=== PATIENT | female | born 1925 | race Hispanic/Latino ===

== ENCOUNTER 2016-09-24 10:15 | Inpatient (IN) | payer MEDICARE, OTHER ==
[2016-09-24 10:22] VITALS: BMI 29.0
[2016-09-24] MEDS ORDERED: Pantoprazole 40 MG in Sodium Chloride 0.9% 100 ML IV STA (10:29)
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
[2016-09-24 11:11] LABS: BASO # 0.01 K/mm3 (0.0-2.0); BASO % 0.1 % (0.0-3.0); GRAN # 12.32 (1.4-6.5); GRAN % 88.3 % (50.0-68.0); LYMPH # 0.8 (1.2-3.4); LYMPH % 5.7 % (22.0-35.0); MEAN CELL VOLUME 89.8 fL (80.0-105.0); MEAN CORPUSCULAR HEMOGLOBIN 31.4 pg (25.0-35.0); MEAN CORPUSCULAR HGB CONC 34.9 g/dl (31.0-37.0); MEAN PLATELET VOLUME 10.3 fl (7.0-11.0); MONO # 0.8 (0.1-0.6); MONO % 5.9 % (1.0-6.0); PLATELET COUNT 336 10^3/uL (120.0-450.0); RED CELL DISTRIBUTION WIDTH 13.6 % (11.5-14.5); WHITE BLOOD COUNT 13.9 10^3/ul (4.5-11.0)
[2016-09-24 11:21] LABS: ALB/GLOB RATIO 1.1 (1.1-1.8); ALBUMIN 4.4 g/dL (3.0-4.8); CALCIUM 9.7 mg/dL (8.4-10.5); INR 1.24 (0.93-1.08); PROTHROMBIN TIME 13.4 Seconds (9.9-11.8)
[2016-09-24 11:24] LABS: PH,URINE 5.5 (4.7-8.0); URINE BILIRUBIN MODERATE (NEGATIVE); URINE BLOOD LARGE (NEGATIVE); URINE GLUCOSE (UA) NEGATIVE (NEGATIVE); URINE LEUKOCYTE ESTERASE LARGE Leu/uL (NEGATIVE); URINE NITRATE POSITIVE (NEGATIVE); URINE PROTEIN >=300 mg/dL (<30 mg/dL)
[2016-09-24 11:26] LABS: URINE APPEARANCE CLOUDY (CLEAR); URINE COLOR RED (YELLOW)
[2016-09-24 11:29] LABS: URINE BACTERIA MANY (NEG); URINE RBC TNTC /hpf (0-2); URINE WBC TNTC /hpf (0-6)
[2016-09-24] MEDS ORDERED: cefTRIAXone 1 gm 1 GM/100 ML BAG IVPB STA (11:30)
[2016-09-24 11:36] LABS: TROPONIN I 0.01 ng/mL
--- NOTE | 2016-09-24 12:02 | RAD ---
PROCEDURE: CHEST RADIOGRAPH, 1 VIEW HISTORY: Shortness of breath COMPARISON: 03/04/2016. FINDINGS: LUNGS: The lungs are clear. There is mild pulmonary venous congestion. PLEURA: No pneumothorax or pleural fluid seen. CARDIOVASCULAR: There is persistent moderate cardiomegaly and prominent central vasculature. Atherosclerotic aortic arch calcifications are present. OSSEOUS STRUCTURES: No significant abnormalities. VISUALIZED UPPER ABDOMEN: Normal. OTHER FINDINGS: None. IMPRESSION: Persistent moderate cardiomegaly and mild pulmonary venous congestion.
--- NOTE | 2016-09-24 12:29 | CT ---
PROCEDURE: CT Abdomen and Pelvis without intravenous contrast HISTORY: Abdominal pain COMPARISON: 03/04/2016 TECHNIQUE: CT scan of the abdomen and pelvis was performed without administration of intravenous contrast. Oral contrast was not administered. Coronal and sagittal reformatted images were obtained. Radiation dose: Total exam DLP = 1051.23 mGy-cm. This CT exam was performed using one or more of the following dose reduction techniques: Automated exposure control, adjustment of the mA and/or kV according to patient size, and/or use of iterative reconstruction technique. FINDINGS: LOWER THORAX: There is nodular and confluent airspace disease in the left lower lobe. The right lung base is clear. There is a large sliding hiatal hernia. LIVER: The liver is normal in size. No gross lesion or ductal dilatation. GALLBLADDER AND BILE DUCTS: The gallbladder is well distended. There are no calcified gallstones. PANCREAS: The pancreas is normal in size. No gross lesion or ductal dilatation. SPLEEN: The spleen is normal in size. ADRENALS: Both adrenal glands are normal in size without discrete nodule. KIDNEYS AND URETERS: Both kidneys are normal in size without nephrolithiasis. No hydronephrosis. No solid mass. VASCULATURE: Unremarkable. No aortic aneurysm. BOWEL: There is moderate dilatation of fluid-filled small bowel loops. There is also moderate dilatation of fluid-filled colon. The sigmoid colon is relatively normal in caliber. There are inflammatory changes in the mesentery fat anterior to the sigmoid colon. There is a zone of transition from the descending to sigmoid colon without evidence of stricture or mass. APPENDIX: The appendix is fluid-filled, distended and measures 9 mm. There are significant inflammatory changes in the right lower quadrant and small amount of fluid and inflammation surrounding the appendix. PERITONEUM: There is moderate amount of free fluid in the pelvis. No free air. LYMPH NODES: No enlarged lymph nodes. BLADDER: Decompressed. REPRODUCTIVE: The uterus is normal in size. There is a calcified fibroid in the fundus. BONES: There is diffuse bone demineralization and multilevel degenerative changes in the spine. There is mild levoscoliosis in the lumbar spine. There is an old inferior endplate fracture deformity in the T11 vertebral body. OTHER FINDINGS: None. IMPRESSION: 1. Findings are concerning for acute appendicitis. No evidence of perforation or abscess. 2. Moderate dilatation of fluid-filled small bowel loops and moderate dilatation of colon with smooth transition to the sigmoid colon could be related to ileus.
[2016-09-24] MEDS ORDERED: Piperacillin/Tazobact 3.375 gm 100 ML IVPB STA (13:06)
[2016-09-24 15:09] LABS: VENOUS BLOOD GAS BASE EXCESS -2.9 mmol/L (0.0-2.0); VENOUS BLOOD GAS PO2 58 mm/Hg (30-55); VENOUS BLOOD PH 7.27 (7.32-7.43)
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
[2016-09-24] MEDS: Lactated Ringer's 1,000 ML IV SCH ×2 (15:41→22:00)
[2016-09-24] MEDS ORDERED: Sodium Chloride 0.9% 1,000 ML IV STA (16:08)
[2016-09-24 17:08] LABS: VENOUS BLOOD GAS BASE EXCESS 1.2 mmol/L (0.0-2.0); VENOUS BLOOD GAS PO2 85 mm/Hg (30-55); VENOUS BLOOD PH 7.44 (7.32-7.43)
[2016-09-24] MEDS ORDERED: Pneumococcal 23-Valent Vaccine IM ONE (17:27)
[2016-09-24] MEDS ORDERED: Propofol 10 mg/ml Inj (20 ML) ONE (17:48)
[2016-09-24] MEDS: Ampicillin/Sulbactam 3 GM in Sodium Chloride 0.9% 100 ML IVPB SCH (17:48)
[2016-09-24] MEDS ORDERED: Midazolam 2 MG/2 ML VIAL ONE (17:49)
[2016-09-24] MEDS ORDERED: Rocuronium 10 mg/ml (5 ml) ONE (17:50)
[2016-09-24] MEDS ORDERED: Etomidate 20 mg/10ml Inj IV ONE (17:50)
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
[2016-09-24] MEDS ORDERED: Bupivacaine 0.5% Inj(30mL) ONE (18:50)
[2016-09-24] MEDS ORDERED: Oxychlorosene Topical 2 gm Packet TOP ONE (20:06)
[2016-09-24] MEDS ORDERED: Neostigmine Methylsulfate 3mg/3ml Syringe IV ONE (20:12)
[2016-09-24] MEDS ORDERED: Glycopyrrolate 0.2 mg/ml (2ml vial) ONE (20:12)
--- NOTE | 2016-09-24 21:04 | PCM.SURG1 ---
Surgeon's Initial Post Op Note - Surgeon's Notes Surgeon: Dr Baez Hand Singer: Dr Chau PGY3, Dr Levy PGY1 Type of Anesthesia: General Endo Anesthesia Administered By: Dr Bravo Pre-Operative Diagnosis: appendicitis Operative Findings: perforated appendicitis Post-Operative Diagnosis: as above Operation Performed: diagnostic laparoscopy. exploratory laparotomy. appendectomy. drainage of intra-abdominal abscess Specimen/Specimens Removed: appendix. peritoneal fluid culture Estimated Blood Loss: EBL {In ML}: 25 Blood Products Given: N/A Drains Used: Chilango Post-Op Condition: Good Date of Surgery/Procedure: 09/24/16 Time of Surgery/Procedure: 21:04
[2016-09-24] MEDS: Morphine 4 mg/ml ISec IVP PRN (21:16)
--- NOTE | 2016-09-25 00:49 | HP ---
PRIMARY CARE DOCTOR: Jaky Moa MD CHIEF COMPLAINT AND HISTORY OF PRESENT ILLNESS: This is an 89-year-old female who is coming into the hospital with complaints of abdominal pain, nausea, and vomiting. She has been having intermittent constipation as well. Yesterday, she started developing shortness of breath. She had called her primary care doctor, Dr. Mao and was advised to come into the emergency room for further evaluation. She says that she has been having abdominal discomfort, it is periumbilical. She has no diarrhea, no vomiting, she has no headaches, she has no fevers or chills. She has no back pain. She denies any dysuria, no dizziness. She has not been able to tolerate p.o. REVIEW OF SYSTEMS: All the review of systems are within normal limits except was mentioned. PAST MEDICAL HISTORY: Dyslipidemia, UTI, back pain secondary to lumbar disk disease. ALLERGIES: PINEAPPLE, SHE GETS ANAPHYLAXIS. HOME MEDICATIONS: No known home medications. SOCIAL HISTORY: She is a former smoker, the patient stopped smoking about 5 years ago. She drinks socially. She denies any drug use. FAMILY HISTORY: Noncontributory. PHYSICAL EXAMINATION VITAL SIGNS: Temperature 101.2, pulse of 101, blood pressure is 111/68, respirations 18 and O2 saturation 97%. Initial blood pressure was 99/60. Height 5 feet 6 inches, weight is 180 pounds, BMI 29.1. GENERAL: The patient lying in bed, uncomfortable, and in no acute distress. HEENT: Atraumatic and normocephalic. Anicteric sclerae. Moist mucosa. [place] conjunctivae. No oral lesions. NECK: No JVD, anterior and posterior adenopathy, thyromegaly, or bruits. CARDIOVASCULAR: S1 and S2 regular. No murmur, rubs, or gallop. LUNGS: Clear to auscultation bilaterally. No wheezes, rales, or rhonchi. ABDOMEN: Bowel sounds are positive. Soft. There is no rebound. There is mild right lower quadrant tenderness. EXTREMITIES: No cyanosis, clubbing, or edema. NEUROLOGIC: No facial asymmetry. Tongue is midline. No vulva deviation. Power is 5/5 upper extremity and lower extremity. Sensation intact in upper extremity and lower extremity. PSYCHIATRIC: She is awake, alert and oriented x3. No anxiety or depression. She has normal affect. GENITOURINARY: No CVA tenderness. VASCULAR: 2+ pulses in the carotid pulses and pedal pulses. SKIN: No erythema or nodules SPINE: Shows normal curvature. EXTREMITIES: No Cyanosis and clubbing, no edema. LABORATORY DATA: White count is 13.9 and hemoglobin 16. INR is 1.2. The patient's chemistry shows a sodium 137, potassium 4.8, creatinine 1.1 and albumin 4.4. Urine shows that nitrites are positive, blood is large, ketones are 15 esterase is large. The last echo done in February 2016 shows the left ventricle is normal in size. Chest x-ray shows persistent moderate cardiomegaly and mild pulmonary venous congestion. CT of the abdomen and pelvis shows an acute appendicitis. There is moderate dilation of fluid filled small bowel loops. EKG shows atrial fibrillation [address] changes, poor EKG. ASSESSMENT: 1. Appendicitis. 2. Sepsis. 3. Atrial fibrillation, new onset. 4. Dilation of the colon, possible ileus. 5. Dyslipidemia. 6. Urinary tract infection. 7. Chronic back pain. PLAN: The patient is going to be admitted to the hospital. The patient is going to be on IV fluids. She has been given morphine for pain. The pain is better controlled. I spoke to the ER doctor and he said the patient's abdominal pain, nausea were significantly worse when she first came into the hospital, she is on Zofran as needed. She is n.p.o. I did speak to Dr. Baez and Dr. Harrell regarding the case, the patient is going to be sent emergently to the OR for appendectomy. She is better than she came into the hospital and this may be a window to prevent rupture of her appendix. Overall prognosis is guarded. She may need ICU stay after her surgery. She is at risk of having complications given that she is septic and in AFib. Given acute appendicitis and is emergent we will clear her and she is hemodynamically stable to undergo the procedure. I did speak to the patient's daughter earlier and also I spoke to Hesham at the bedside, the patient's son. I also spoke with Dr. Mao to give him update on patient's diagnosis and plan of care. Abhishek Mac MD [facility] # [id number]
[2016-09-25] MEDS: Ampicillin/Sulbactam 3 GM in Sodium Chloride 0.9% 100 ML IVPB SCH ×4 (05:25→18:43)
[2016-09-25 06:00] LABS: HEMOGLOBIN 13.1 gm/dL (12.0-16.0); MEAN CELL VOLUME 91.5 fL (80.0-105.0); MEAN CORPUSCULAR HEMOGLOBIN 30.8 pg (25.0-35.0); MEAN CORPUSCULAR HGB CONC 33.6 g/dl (31.0-37.0); MEAN PLATELET VOLUME 10.3 fl (7.0-11.0); RBC 4.26 10^6/uL (3.5-6.1); WHITE BLOOD COUNT 8.5 10^3/ul (4.5-11.0)
[2016-09-25 06:15] LABS: ALT/SGPT 22 U/L (7-56); AST/SGOT 19 U/L (15-39); BLOOD UREA NITROGEN 22 mg/dL (7-21); GFR AFRICAN-AMERICAN > 60; GFR NON-AFRICAN AMERICAN > 60; MAGNESIUM 1.9 mg/dL (1.7-2.2)
[2016-09-25 06:22] LABS: TROPONIN I 0.05 ng/mL
[2016-09-25] MEDS: Lactated Ringer's 1,000 ML IV SCH (07:15)
--- NOTE | 2016-09-25 08:12 | CP.PCM.PN ---
Subjective - Date & Time of Evaluation Date of Evaluation: 09/25/16 Time of Evaluation: 07:40 - Subjective Subjective: General Surgery- Dr. Baez Pt S&E at bedside this AM. No acute events overnight. pt complaining of appropriate tenderness around incision. Tolerating clears. Denies Flatus or BM. Denies N/V CP/SOB F/C Vision changes. Currently AAOx3. Chilango 120cc serosang overnight. Dressing C/D/I Objective - Vital Signs/Intake and Output Vital Signs (last 24 hours): Temp Pulse Resp BP Pulse Ox 99.1 F 105 H 26 H 138/69 95 09/25/16 07:40 09/25/16 07:40 09/25/16 07:40 09/25/16 07:33 09/25/16 07:40 Intake and Output: 09/25/16 09/25/16 06:59 18:59 Intake Total 1000 Output Total 100 Balance 900 - Medications Medications: Current Medications Lactated Ringer's (Lactated Ringer's) 1,000 mls @ 100 mls/hr IV .Q10H ALEJANDRA Last Admin: 09/24/16 22:00 Dose: 100 mls/hr Ampicillin Sodium/Sulbactam (Sodium 3 gm/ Sodium Chloride) 100 mls @ 200 mls/ hr IVPB Q6 ALEJANDRA PRN Reason: Protocol Last Admin: 09/25/16 05:25 Dose: 200 mls/hr Morphine Sulfate (Morphine) 4 mg IVP Q4H PRN PRN Reason: Pain, moderate (4-7) Last Admin: 09/24/16 21:16 Dose: 4 mg Ondansetron HCl (Zofran Inj) 4 mg IVP Q4H PRN PRN Reason: Nausea/Vomiting - Labs Labs: 09/25/16 05:30 09/25/16 05:30 PT 13.4 Seconds (9.9-11.8) H 09/24/16 10:50 INR 1.24 (0.93-1.08) H 09/24/16 10:50 APTT 27.0 Seconds (23.7-30.8) 09/24/16 10:50 - Constitutional Appears: Well, Non-toxic, No Acute Distress - Head Exam Head Exam: ATRAUMATIC - Eye Exam Eye Exam: EOMI - ENT Exam ENT Exam: Mucous Membranes Moist - Respiratory Exam Respiratory Exam: Wheezes, NORMAL BREATHING PATTERN. absent: Accessory Muscle Use, Chest Wall Tenderness - Cardiovascular Exam Cardiovascular Exam: Tachycardia, +S1, +S2 - GI/Abdominal Exam GI & Abdominal Exam: Distended, Soft. absent: Firm, Hernia Additional comments: appropriately tender around incision. Dressing C/D/I - Extremities Exam Extremities Exam: absent: Pedal Edema - Neurological Exam Neurological Exam: Awake, Oriented x3 - Skin Skin Exam: Normal Color, Warm Assessment and Plan - Assessment and Plan (Free Text) Assessment: 89F s/p exploratory laparotomy, appendectomy POD1 Plan: - monitor labs - start clear liquid diet, advance as tolerated - pain control - GI/DVT ppx - IVF - monitor drain output will discuss with Dr. Nestor Pak PGY1
[2016-09-25] MEDS ORDERED: Albuterol-Ipratrop 3 mg / 0.5 (3 ml) UD ONE (09:00)
[2016-09-25] MEDS ORDERED: Albuterol-Ipratrop 3 mg / 0.5 (3 ml) UD IH STA ×2 (09:13→09:15)
[2016-09-25] MEDS: Enoxaparin 40 mg Syringe SC SCH (10:09)
[2016-09-25] MEDS: Morphine 4 mg/ml ISec IVP PRN ×2 (10:09→14:24)
--- NOTE | 2016-09-25 10:22 | CARD ---
APPROVED REPORT EKG Measurement Heart [id number] <Conclusion> Atrial fibrillation PRWP Possible IMI, age unknown NSSTW changes
[2016-09-25] MEDS ORDERED: Albuterol-Ipratrop 3 mg / 0.5 (3 ml) UD IH PRN (12:08)
[2016-09-25] MEDS: MethylPREDNISolone 40 mg Vial IVP SCH ×2 (12:33→22:02)
--- NOTE | 2016-09-25 12:41 | CP.CCUPN ---
CCU Subjective - Physician Review Events Since Last Encounter (Free Text): 09/25/16 12:38 Overnight returned from surgery (open) Appendix removal. Pain controlled but SOb and wheezing started. This a.m received Nebs and suctioning. Solumedrol to be added. CCU Objective - Vital Signs / Intake & Output Intake and Output (Last 8hrs): Intake & Output 09/24/16 09/25/16 09/25/16 22:59 06:59 14:59 Intake Total 1200 1000 Output Total 600 100 Balance 600 900 Weight 180 lb Intake: IV 1200 800 Right Hand 1200 800 Oral 0 Other 200 Output: Drainage 100 Left Abdomen 100 Urine 600 Urine, Voided 600 Other: Voiding Method Toilet Diaper # Voids Urine, Voided 3 # Bowel Movements 0 0 - Physical Exam Head: Positive for: Atraumatic, Normocephalic Pupils: Positive for: PERRL Extroacular Muscles: Positive for: EOMI Conjunctiva: Positive for: Normal Mouth: Positive for: Moist Mucous Membranes Pharnyx: Negative for: ERYTHEMA, EXUDATE, TONSILS ENLARGED Neck: Positive for: Normal Range of Motion. Negative for: MIDLINE TENDERNESS, Paraspinal Tenderness Respiratory/Chest: Positive for: Rales (Bibasilar mild rales) Cardiovascular: Positive for: Normal S1, S2, Irregular Rhythm, Tachycardic. Negative for: Murmurs Abdomen: Positive for: Tenderness (Mild generalized tenderness but no guarding and no rebound), Normal Bowel Sounds. Negative for: Distention, Peritoneal Signs, Rebound, Guarding, Scars Rectal: Positive for: Normal Rectal Tone, Other (No stool and guaiac negative). Negative for: Occult Blood, Rectal Tenderness, Gross Blood, Melena, Hemorrhoids, Fissures, Nodule/Mass/Lesions Upper Extremity: Positive for: Normal Inspection. Negative for: Cyanosis, Edema Lower Extremity: Positive for: Normal Inspection. Negative for: Edema Neurological: Positive for: GCS=15, CN II-XII Intact, Speech Normal, Motor Func Grossly Intact Skin: Positive for: Warm, Dry, Normal Color. Negative for: Rashes Psychiatric: Positive for: Alert, Oriented x 3, Normal Insight, Normal Concentration - Medications Active Medications: Active Medications Generic Name Dose Route Start Last Admin Trade Name Freq PRN Reason Stop Dose Admin Albuterol/Ipratropium 3 ml 09/25/16 14:00 Duoneb 3 Mg/0.5 Mg (3 Ml) Ud IH [id number] ALEJANDRA Albuterol/Ipratropium 3 ml 09/25/16 12:08 Duoneb 3 Mg/0.5 Mg (3 Ml) Ud IH Q2H PRN Shortness of Breath Enoxaparin Sodium 40 mg 09/25/16 10:00 09/25/16 10:09 Lovenox SC 40 mg DAILY ALEJANDRA Administration Protocol Lactated Ringer's 1,000 mls @ 100 mls/hr 09/24/16 15:25 09/25/16 07:15 Lactated Ringer's IV 100 mls/hr .Q10H ALEJANDRA Administration Ampicillin Sodium/Sulbactam 100 mls @ 200 mls/hr 09/24/16 18:00 09/25/16 11: 41 Sodium 3 gm/ Sodium Chloride IVPB 200 mls/hr Q6 ALEJANDRA Administration Protocol Metronidazole 500 mg in 100 mls @ 100 mls/hr 09/25/16 14:00 Flagyl IVPB Q8 ALEJANDRA Protocol Methylprednisolone 40 mg 09/25/16 12:15 Solu-Medrol IVP Q12 [facility] Morphine Sulfate 4 mg 09/24/16 15:25 09/25/16 10:09 Morphine IVP 4 mg Q4H PRN Administration Pain, moderate (4-7) Ondansetron HCl 4 mg 09/24/16 15:25 09/25/16 10:10 Zofran Inj IVP 4 mg Q4H PRN Administration Nausea/Vomiting - Patient Studies Lab Studies: Lab Studies 09/25/16 09/25/16 09/25/16 Range/Units 05:30 05:30 05:30 WBC 8.5 D (4.5-11.0) 10^3/ul RBC 4.26 (3.5-6.1) 10^6/uL Hgb 13.1 (12.0-16.0) gm/dL Hct 39.0 (36.0-48.0) % MCV 91.5 (80.0-105.0) fL MCH 30.8 (25.0-35.0) pg MCHC 33.6 (31.0-37.0) g/dl RDW 14.0 (11.5-14.5) % Plt Count 251 (120.0-450.0) 10^3/uL MPV 10.3 (7.0-11.0) fl pO2 (30-55) mm/Hg VBG pH (7.32-7.43) VBG pCO2 (40-60) VBG HCO3 (21-28) mmol/l VBG Total CO2 (22-28) mmol.L VBG O2 Sat (Calc) (40-65) % VBG Base Excess (0.0-2.0) mmol/L VBG Potassium (3.6-5.2) mmol/L Sodium 138 (132-148) mmol/L Chloride 104 (98-107) mmol/L Glucose (65-105) mg/dl Lactate (0.7-2.1) mmol/L FiO2 % Potassium 4.4 (3.6-5.0) mmol/L Carbon Dioxide 25 (21-33) mmol/L Anion Gap 13 (10-20) BUN 22 H (7-21) mg/dL Creatinine 0.8 (0.5-1.4) mg/dL Est GFR ( Amer) > 60 Est GFR (Non-Af Amer) > 60 Random Glucose 118 H (70-110) mg/dL Calcium 8.0 L (8.4-10.5) mg/dL Phosphorus 3.8 (2.5-4.5) mg/dL Magnesium 1.9 (1.7-2.2) mg/dL Total Bilirubin 0.9 (0.2-1.3) mg/dL AST 19 (15-39) U/L ALT 22 (7-56) U/L Alkaline Phosphatase 33 L (38-133) U/L Troponin I 0.05 D ng/mL Total Protein 6.1 (5.8-8.3) g/dL Albumin 3.0 (3.0-4.8) g/dL Globulin 3.1 gm/dL Albumin/Globulin Ratio 1.0 L (1.1-1.8) TSH 3rd Generation 1.15 (0.46-4.68) mIU/mL Venous Blood Potassium (3.6-5.2) mmol/L Blood Type Blood Type Confirm Antibody Screen BBK History Checked 09/24/16 09/24/16 09/24/16 Range/Units 17:50 16:55 16:50 WBC (4.5-11.0) 10^3/ul RBC (3.5-6.1) 10^6/uL Hgb (12.0-16.0) gm/dL Hct (36.0-48.0) % MCV (80.0-105.0) fL MCH (25.0-35.0) pg MCHC (31.0-37.0) g/dl RDW (11.5-14.5) % Plt Count (120.0-450.0) 10^3/uL MPV (7.0-11.0) fl pO2 85 H (30-55) mm/Hg VBG pH 7.44 H (7.32-7.43) VBG pCO2 37.0 L (40-60) VBG HCO3 25.1 (21-28) mmol/l VBG Total CO2 26.2 (22-28) mmol.L VBG O2 Sat (Calc) 98.6 H (40-65) % VBG Base Excess 1.2 (0.0-2.0) mmol/L VBG Potassium 4.5 (3.6-5.2) mmol/L Sodium 133.0 (132-148) mmol/L Chloride 102.0 (98-107) mmol/L Glucose 162 H (65-105) mg/dl Lactate 1.8 (0.7-2.1) mmol/L FiO2 21.0 % Potassium (3.6-5.0) mmol/L Carbon Dioxide (21-33) mmol/L Anion Gap (10-20) BUN (7-21) mg/dL Creatinine (0.5-1.4) mg/dL Est GFR ( Amer) Est GFR (Non-Af Amer) Random Glucose (70-110) mg/dL Calcium (8.4-10.5) mg/dL Phosphorus (2.5-4.5) mg/dL Magnesium (1.7-2.2) mg/dL Total Bilirubin (0.2-1.3) mg/dL AST (15-39) U/L ALT (7-56) U/L Alkaline Phosphatase (38-133) U/L Troponin I ng/mL Total Protein (5.8-8.3) g/dL Albumin (3.0-4.8) g/dL Globulin gm/dL Albumin/Globulin Ratio (1.1-1.8) TSH 3rd Generation (0.46-4.68) mIU/mL Venous Blood Potassium 4.5 (3.6-5.2) mmol/L Blood Type A POSITIVE Blood Type Confirm A POSITIVE Antibody Screen Negative BBK History Checked No verified bt 09/24/16 Range/Units 14:30 WBC (4.5-11.0) 10^3/ul RBC (3.5-6.1) 10^6/uL Hgb (12.0-16.0) gm/dL Hct (36.0-48.0) % MCV (80.0-105.0) fL MCH (25.0-35.0) pg MCHC (31.0-37.0) g/dl RDW (11.5-14.5) % Plt Count (120.0-450.0) 10^3/uL MPV (7.0-11.0) fl pO2 58 H (30-55) mm/Hg VBG pH 7.27 L (7.32-7.43) VBG pCO2 54.0 (40-60) VBG HCO3 24.8 (21-28) mmol/l VBG Total CO2 26.5 (22-28) mmol.L VBG O2 Sat (Calc) 90.9 H (40-65) % VBG Base Excess -2.9 L (0.0-2.0) mmol/L VBG Potassium 5.4 H (3.6-5.2) mmol/L Sodium 147.0 (132-148) mmol/L Chloride 89.0 L (98-107) mmol/L Glucose 154 H (65-105) mg/dl Lactate 3.2 H (0.7-2.1) mmol/L FiO2 21.0 % Potassium (3.6-5.0) mmol/L Carbon Dioxide (21-33) mmol/L Anion Gap (10-20) BUN (7-21) mg/dL Creatinine (0.5-1.4) mg/dL Est GFR ( Amer) Est GFR (Non-Af Amer) Random Glucose (70-110) mg/dL Calcium (8.4-10.5) mg/dL Phosphorus (2.5-4.5) mg/dL Magnesium (1.7-2.2) mg/dL Total Bilirubin (0.2-1.3) mg/dL AST (15-39) U/L ALT (7-56) U/L Alkaline Phosphatase (38-133) U/L Troponin I ng/mL Total Protein (5.8-8.3) g/dL Albumin (3.0-4.8) g/dL Globulin gm/dL Albumin/Globulin Ratio (1.1-1.8) TSH 3rd Generation (0.46-4.68) mIU/mL Venous Blood Potassium 5.4 H (3.6-5.2) mmol/L Blood Type Blood Type Confirm Antibody Screen BBK History Checked Laboratory Results - last 24 hr 09/24/16 09/24/16 09/24/16 14:30 16:50 16:55 WBC RBC Hgb Hct MCV MCH MCHC RDW Plt Count MPV pO2 58 H 85 H VBG pH 7.27 L 7.44 H VBG pCO2 54.0 37.0 L VBG HCO3 24.8 25.1 VBG Total CO2 26.5 26.2 VBG O2 Sat (Calc) 90.9 H 98.6 H VBG Base Excess -2.9 L 1.2 VBG Potassium 5.4 H 4.5 Sodium 147.0 133.0 Chloride 89.0 L 102.0 Glucose 154 H 162 H Lactate 3.2 H 1.8 FiO2 21.0 21.0 Potassium Carbon Dioxide Anion Gap BUN Creatinine Est GFR ( Amer) Est GFR (Non-Af Amer) Random Glucose Calcium Phosphorus Magnesium Total Bilirubin AST ALT Alkaline Phosphatase Troponin I Total Protein Albumin Globulin Albumin/Globulin Ratio TSH 3rd Generation Venous Blood Potassium 5.4 H 4.5 Blood Type A POSITIVE Blood Type Confirm Antibody Screen Negative BBK History Checked No verified bt 09/24/16 09/25/16 09/25/16 17:50 05:30 05:30 WBC 8.5 D RBC 4.26 Hgb 13.1 Hct 39.0 MCV 91.5 MCH 30.8 MCHC 33.6 RDW 14.0 Plt Count 251 MPV 10.3 pO2 VBG pH VBG pCO2 VBG HCO3 VBG Total CO2 VBG O2 Sat (Calc) VBG Base Excess VBG Potassium Sodium 138 Chloride 104 Glucose Lactate FiO2 Potassium 4.4 Carbon Dioxide 25 Anion Gap 13 BUN 22 H Creatinine 0.8 Est GFR ( Amer) > 60 Est GFR (Non-Af Amer) > 60 Random Glucose 118 H Calcium 8.0 L Phosphorus 3.8 Magnesium 1.9 Total Bilirubin 0.9 AST 19 ALT 22 Alkaline Phosphatase 33 L Troponin I 0.05 D Total Protein 6.1 Albumin 3.0 Globulin 3.1 Albumin/Globulin Ratio 1.0 L TSH 3rd Generation Venous Blood Potassium Blood Type Blood Type Confirm A POSITIVE Antibody Screen BBK History Checked 09/25/16 05:30 WBC RBC Hgb Hct MCV MCH MCHC RDW Plt Count MPV pO2 VBG pH VBG pCO2 VBG HCO3 VBG Total CO2 VBG O2 Sat (Calc) VBG Base Excess VBG Potassium Sodium Chloride Glucose Lactate FiO2 Potassium Carbon Dioxide Anion Gap BUN Creatinine Est GFR ( Amer) Est GFR (Non-Af Amer) Random Glucose Calcium Phosphorus Magnesium Total Bilirubin AST ALT Alkaline Phosphatase Troponin I Total Protein Albumin Globulin Albumin/Globulin Ratio TSH 3rd Generation 1.15 Venous Blood Potassium Blood Type Blood Type Confirm Antibody Screen BBK History Checked EKG/Cardiology Studies: Cardiology / EKG Studies 09/25/16 09:21 ELECTROCARDIOGRAM Routine Comment: Reason For Exam: post op Critical Care Progress Note - Nutrition Nutrition: Nutrition Category Date Time Status Liquid Diet [DIET] Diets 09/24/16 Dinner Ordered Assessment/Plan - Assessment and Plan (Free Text) Assessment: 89 y/o F s/p Appendix removal (open) with midline scar and ADWOA drain in place. On empiric abx for Intrabdominal source and UTI. CX pending On IV fluids and NPO currently. COPD On Nebulizers q4-6 hrs , suctions and Solumedrol to be added. DVT P PPi cc time 45 min
[2016-09-25] MEDS: Albuterol-Ipratrop 3 mg / 0.5 (3 ml) UD IH SCH ×2 (13:07→19:55)
[2016-09-25] MEDS: metroNIDAZOLE IV 500 mg/100 ml 500 MG/100 ML BAG IVPB SCH ×2 (14:22→22:00)
[2016-09-25] MEDS ORDERED: Sodium Chloride 0.9% 1,000 ML IV STA (15:21)
--- NOTE | 2016-09-25 15:52 | CON ---
DATE: 09/25/2016 INDICATIONS: Postop emergency appendectomy. HISTORY OF PRESENT ILLNESS: This is an 89-year-old woman admitted yesterday through the emergency room when she presented with several days of the abdominal pain and was found to have appendicitis as well as a urinary tract infection. She went to the OR yesterday and had an appendectomy and drainage of an abscess. She is currently in the intensive care unit on IV antibiotics. She is comfortable except for residual postoperative abdominal pain, which is much Improved as compared to yesterday. There is no chest pain, shortness of breath, orthopnea, PND, syncope, presyncope, lightheadedness, dizziness, vertigo, palpitations, edema, cough, sputum production or hemoptysis. PAST MEDICAL HISTORY: Notable for hyperlipidemia, chronic back pain, diverticulitis. She is a former smoker. On admission, she was found to have atrial fibrillation, but this has not been documented in the ICU. There is no history of rheumatic fever, myocardial infarction, congestive hear failure, stroke, TIA, or gout. There is no history of diabetes. An echo cardiogram in 02/2016, reveal normal LV function, small pericardial effusion was noted at that time. There were no medications at the time of admission. CURRENT MEDICATION: Include albuterol, Lovenox, morphine, Unasyn and Zofran. ALLERGIES: SHE NOTES AN ALLERGY TO [place], BUT NO MEDICATION ALLERGIES ARE RECORDED. SOCIAL HISTORY: She is a former smoker. She does not drink alcohol. She lives at home. FAMILY HISTORY: Noncontributory. REVIEW OF SYSTEMS: A 10-point review of systems is otherwise unremarkable except as noted above. PHYSICAL EXAMINATION GENERAL: She is a well-developed elderly woman, lying in bed in the intensive care unit, in no acute distress. VITAL SIGNS: Notable for sinus rhythm to sinus tachycardia, currently 105 beats per minute; temperature 99.1; blood pressure 138/69; respirations 19 to 26 and O2 sat 95% to 100% on nasal cannula. HEENT: Reveals no neck vein distention, thyromegaly, or carotid bruits. Mucous membranes moist. Conjunctivae are pink. NECK: Supple. LUNGS: Lungs warren clear HEART: Examination of the heart revealed normal first and second heart sounds. There is a soft systolic murmur along the left sternal border. The PMI is not displaced. ABDOMEN: Tender. EXTREMITIES: Revealed no cyanosis, clubbing, or edema. NEUROLOGIC: She is awake, alert and oriented. PSYCHIATRIC: Normal as to mood and affect. SKIN: Warm and dry. No rash or cellulitis. LABORATORY AND IMAGING DATA: Portable chest x-ray reveals moderate cardiomegaly, mild pulmonary venous congestion. EKG demonstrated atrial fibrillation, poor R wave progression, nonspecific ST wave changes. CT scan of the abdomen and pelvis is noted, it reveals acute appendicitis, no evidence of perforation or abscess, etc. White count initially 13,900, today 8500. Hemoglobin, hematocrit and platelet count are unremarkable. PT 13.4, INR 1.24, PTT 27. Blood gases are noted. Electrolytes; BUN, creatinine, blood sugar unremarkable. Magnesium 1.9. LFTs are unremarkable. Troponin negative x2. BNP 2500. TSH is normal. IMPRESSION: Staci Rasmussen is an 89-year-old woman admitted with abdominal pain, found to have acute appendicitis as well as a urinary tract infection. She was treated with antibiotics and taken to the OR. The appendix was removed and an abscess drained. This morning she is stable in the intensive care unit. She is in sinus rhythm, the sinus tachycardia. Troponins are negative. At this time, I agree with current plans. I will review her prior echocardiogram. When she is out of the intensive care unit, we will repeat the echocardiogram to follow up on the small pericardial effusion documented in February. I would monitor I's and O's carefully. She is getting antibiotics. She has been cultured. Surgical team is following. I have discussed the case with Dr. Meade. I will report her EKG this morning. I will follow along with you and make additional recommendations based on her clinical course. Mario Harrell MD [facility]
[2016-09-26] MEDS: Lactated Ringer's 1,000 ML IV SCH ×3 (04:01→22:31)
[2016-09-26] MEDS: Ampicillin/Sulbactam 3 GM in Sodium Chloride 0.9% 100 ML IVPB SCH ×5 (05:45→23:02)
[2016-09-26 05:46] LABS: BASO # 0.01 K/mm3 (0.0-2.0); BASO % 0.1 % (0.0-3.0); GRAN # 7.92 (1.4-6.5); GRAN % 92.8 % (50.0-68.0); HEMOGLOBIN 11.6 gm/dL (12.0-16.0); LYMPH # 0.4 (1.2-3.4); LYMPH % 4.2 % (22.0-35.0); MEAN CELL VOLUME 92.4 fL (80.0-105.0); MEAN CORPUSCULAR HEMOGLOBIN 30.5 pg (25.0-35.0); MEAN PLATELET VOLUME 10.1 fl (7.0-11.0); MONO # 0.3 (0.1-0.6); MONO % 2.9 % (1.0-6.0); PLATELET COUNT 232 10^3/uL (120.0-450.0); RED CELL DISTRIBUTION WIDTH 13.7 % (11.5-14.5); WHITE BLOOD COUNT 8.5 10^3/ul (4.5-11.0)
[2016-09-26 05:53] LABS: ALB/GLOB RATIO 0.9 (1.1-1.8); ALT/SGPT 27 U/L (7-56); AST/SGOT 18 U/L (15-39); BLOOD UREA NITROGEN 23 mg/dL (7-21); CALCIUM 7.9 mg/dL (8.4-10.5); GFR AFRICAN-AMERICAN > 60; GFR NON-AFRICAN AMERICAN 59
[2016-09-26] MEDS: metroNIDAZOLE IV 500 mg/100 ml 500 MG/100 ML BAG IVPB SCH ×3 (06:41→22:47)
[2016-09-26] MEDS: Albuterol-Ipratrop 3 mg / 0.5 (3 ml) UD IH SCH ×4 (07:17→22:30)
--- NOTE | 2016-09-26 07:47 | CP.PCM.PN ---
Subjective - Date & Time of Evaluation Date of Evaluation: 09/26/16 Time of Evaluation: 07:00 - Subjective Subjective: Stable in ICU. Supine in recliner chair. She feels better with less abd. pain. SOB yesterday, better today after resp tx. No CP. Taking clear ligs. V/S noted. RSR PE: Lungs: rhonchi Cor.: S1S2 Abd.: bandaged Ext.: no edema Neuro.: alert I/O: 2080/570 Labs noted: H/H 11.6/35.1. BC x2 NG at 24 hrs. Urine C+S: + GNR CXR not read yet: No CHF by my reading ECG 09/25/16: AJR , PRWP, IMI, old, NSSTW changes Objective - Vital Signs/Intake and Output Vital Signs (last 24 hours): Temp Pulse Resp BP Pulse Ox 98.4 F 82 20 153/63 H 98 09/26/16 06:50 09/26/16 06:50 09/26/16 06:50 09/26/16 06:47 09/26/16 06:50 Intake and Output: 09/26/16 09/26/16 06:59 18:59 Intake Total 1220 Output Total 350 Balance 870 - Medications Medications: Current Medications Acetaminophen (Tylenol 325mg Tab) 650 mg PO Q6H PRN PRN Reason: Fever >100.4 F Last Admin: 09/25/16 15:38 Dose: 650 mg Albuterol/Ipratropium (Duoneb 3 Mg/0.5 Mg (3 Ml) Ud) 3 ml IH [id number] [facility] Last Admin: 09/26/16 07:17 Dose: 3 ml Albuterol/Ipratropium (Duoneb 3 Mg/0.5 Mg (3 Ml) Ud) 3 ml IH Q2H PRN PRN Reason: Shortness of Breath Last Admin: 09/25/16 18:11 Dose: 3 ml Enoxaparin Sodium (Lovenox) 40 mg SC DAILY [facility] PRN Reason: Protocol Last Admin: 09/25/16 10:09 Dose: 40 mg Lactated Ringer's (Lactated Ringer's) 1,000 mls @ 100 mls/hr IV .Q10H [facility] Last Admin: 09/26/16 04:01 Dose: 100 mls/hr Ampicillin Sodium/Sulbactam (Sodium 3 gm/ Sodium Chloride) 100 mls @ 200 mls/ hr IVPB Q6 ALEJANDRA PRN Reason: Protocol Last Admin: 09/26/16 05:45 Dose: 200 mls/hr Metronidazole (Flagyl) 500 mg in 100 mls @ 100 mls/hr IVPB Q8 ALEJANDRA PRN Reason: Protocol Last Admin: 09/26/16 06:41 Dose: 100 mls/hr Methylprednisolone (Solu-Medrol) 40 mg IVP Q12 ALEJANDRA Last Admin: 09/25/16 22:02 Dose: 40 mg Morphine Sulfate (Morphine) 4 mg IVP Q4H PRN PRN Reason: Pain, moderate (4-7) Last Admin: 09/25/16 14:24 Dose: 4 mg Ondansetron HCl (Zofran Inj) 4 mg IVP Q4H PRN PRN Reason: Nausea/Vomiting Last Admin: 09/25/16 14:25 Dose: 4 mg - Labs Labs: 09/26/16 05:15 09/26/16 05:15 PT 13.4 Seconds (9.9-11.8) H 09/24/16 10:50 INR 1.24 (0.93-1.08) H 09/24/16 10:50 APTT 27.0 Seconds (23.7-30.8) 09/24/16 10:50 Assessment and Plan - Assessment and Plan (Free Text) Assessment: Abd, pain, nausea, vomiting, acute AP and UTI S/P appendectomy and abscess drainage UTI PAF HLD COPD/Former Smoker Diverticulitis H/O small pericardial effusion on echo 03/09 Plan: AB As per surgical team metoprolol 25 BID trial tel bed monitor I/O, labs, tel, sats., etc. F/U echo when out of unit.
--- NOTE | 2016-09-26 09:30 | CARD ---
APPROVED REPORT EKG Measurement Heart [id number] <Conclusion> Accelerated Junctional rhythm vs RSR with markedly prolonged DC RSR' or QR pattern in V1 suggests right ventricular conduction delay PRWP Inferior infarct, age undetermined Anterior infarct, age undetermined NSSTW changes
[2016-09-26] MEDS: MethylPREDNISolone 40 mg Vial IVP SCH ×2 (09:32→22:48)
[2016-09-26] MEDS: Enoxaparin 40 mg Syringe SC SCH (09:32)
[2016-09-26] MEDS ORDERED: Benzocaine/Menthol (Cepacol) Lozenge MT PRN (09:59)
--- NOTE | 2016-09-26 11:23 | CP.PCM.PN ---
Subjective - Date & Time of Evaluation Date of Evaluation: 09/26/16 Time of Evaluation: 07:40 - Subjective Subjective: General surgery progress note for Dr. Yimi Meade, PGY-1 Pt S & E at bedside. Pt reports pain well controlled overnight, breating improved. Denies N/V/F/C, BM, flatus. Is OOBTC. Tolerating diet. [place]ilango with 270cc serous fluid/24H. Transferred from ICU care. Objective - Vital Signs/Intake and Output Vital Signs (last 24 hours): Temp Pulse Resp BP Pulse Ox 98.4 F 83 20 144/51 L 98 09/26/16 06:50 09/26/16 09:33 09/26/16 06:50 09/26/16 09:33 09/26/16 06:50 Intake and Output: 09/26/16 09/26/16 06:59 18:59 Intake Total 1220 Output Total 350 10 Balance 870 -10 - Medications Medications: Current Medications Acetaminophen (Tylenol 325mg Tab) 650 mg PO Q6H PRN PRN Reason: Fever >100.4 F Last Admin: 09/25/16 15:38 Dose: 650 mg Albuterol/Ipratropium (Duoneb 3 Mg/0.5 Mg (3 Ml) Ud) 3 ml IH [id number] ALEJANDRA Last Admin: 09/26/16 07:17 Dose: 3 ml Albuterol/Ipratropium (Duoneb 3 Mg/0.5 Mg (3 Ml) Ud) 3 ml IH Q2H PRN PRN Reason: Shortness of Breath Last Admin: 09/25/16 18:11 Dose: 3 ml Benzocaine/Menthol (Cepacol Sore Throat) 1 anthony [place] Q2H PRN PRN Reason: Sore Throat Enoxaparin Sodium (Lovenox) 40 mg SC DAILY ALEJANDRA PRN Reason: Protocol Last Admin: 09/26/16 09:32 Dose: 40 mg Lactated Ringer's (Lactated Ringer's) 1,000 mls @ 100 mls/hr IV .Q10H [facility] Last Admin: 09/26/16 04:01 Dose: 100 mls/hr Ampicillin Sodium/Sulbactam (Sodium 3 gm/ Sodium Chloride) 100 mls @ 200 mls/ hr IVPB Q6 ALEJANDRA PRN Reason: Protocol Last Admin: 09/26/16 05:45 Dose: 200 mls/hr Metronidazole (Flagyl) 500 mg in 100 mls @ 100 mls/hr IVPB Q8 [facility] PRN Reason: Protocol Last Admin: 09/26/16 06:41 Dose: 100 mls/hr Methylprednisolone (Solu-Medrol) 40 mg IVP Q12 [facility] Last Admin: 09/26/16 09:32 Dose: 40 mg Metoprolol Tartrate (Lopressor) 25 mg PO BID [facility] Last Admin: 09/26/16 09:33 Dose: 25 mg Morphine Sulfate (Morphine) 4 mg IVP Q4H PRN PRN Reason: Pain, moderate (4-7) Last Admin: 09/25/16 14:24 Dose: 4 mg Ondansetron HCl (Zofran Inj) 4 mg IVP Q4H PRN PRN Reason: Nausea/Vomiting Last Admin: 09/25/16 14:25 Dose: 4 mg - Labs Labs: 09/26/16 05:15 09/26/16 05:15 PT 13.4 Seconds (9.9-11.8) H 09/24/16 10:50 INR 1.24 (0.93-1.08) H 09/24/16 10:50 APTT 27.0 Seconds (23.7-30.8) 09/24/16 10:50 - Constitutional Appears: Non-toxic, No Acute Distress - Head Exam Head Exam: ATRAUMATIC, NORMAL INSPECTION, NORMOCEPHALIC - Eye Exam Eye Exam: EOMI, Normal appearance - ENT Exam ENT Exam: Mucous Membranes Moist, Normal Exam - Neck Exam Neck Exam: Full ROM, Normal Inspection - Respiratory Exam Respiratory Exam: Decreased Breath Sounds, NORMAL BREATHING PATTERN. absent: Accessory Muscle Use, Rales, Rhonchi, Wheezes - Cardiovascular Exam Cardiovascular Exam: REGULAR RHYTHM, +S1, +S2 - GI/Abdominal Exam GI & Abdominal Exam: Soft, Tenderness (minimal, over incision sites), Normal Bowel Sounds. absent: Distended, Firm, Guarding, Rigid Additional comments: [place] drain with moderate serous drainage, dressing with moderate serosanguinous strike through. Midline incision dressing C/D/I - Extremities Exam Extremities Exam: Normal Inspection. absent: Pedal Edema - Neurological Exam Neurological Exam: Alert, Awake, CN II-XII Intact, Oriented x3 - Psychiatric Exam Psychiatric exam: Normal Affect, Normal Mood - Skin Skin Exam: Dry, Normal Color, Warm Assessment and Plan - Assessment and Plan (Free Text) Assessment: 89F POD#2 ex lap, appendectomy Plan: Advanced to FLD pain mgmt Cepacol IVF Monitor drain output OOBTC Encourage IS use Encourage Pep valve use GI/DVT ppx DW attending Halina, PGY-1
[2016-09-26] MEDS ORDERED: Morphine 4 mg/ml ISec IVP PRN (11:27)
--- NOTE | 2016-09-26 12:56 | RAD ---
HISTORY: Wheezing COMPARISON: 09/24/2016 FINDINGS: LUNGS: There is a focal infiltrate at the right lung base adjacent to the right heart border. There is adjacent platelike atelectasis. PLEURA: No significant pleural effusion identified, no pneumothorax apparent. CARDIOVASCULAR: Mild to moderate cardiomegaly. OSSEOUS STRUCTURES: No significant abnormalities. VISUALIZED UPPER ABDOMEN: Normal. OTHER FINDINGS: None. IMPRESSION: There is a focal infiltrate at the right lung base adjacent to the right heart border. There is adjacent platelike atelectasis.
--- NOTE | 2016-09-27 01:07 | PN ---
DATE: 09/25/2016 SUBJECTIVE: Ms. Rasmussen is a 89-year-old female status post appendectomy. She presented with acute appendicitis. She also developed new onset atrial fibrillation. Abdominal pain is better. She is able to get out of bed. She had leukocytosis on admission, which is resolving. She also has mild anemia. 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 ALLERGIES: No known drug allergies. SOCIAL HISTORY: Former smoker. Quit 5 years ago. FAMILY HISTORY: Noncontributory. MEDICATIONS: Tylenol 650 every 6 hours p.r.n., DuoNeb 3 mL every 2 hours p.r.n., Zosyn, Lovenox 40 mg subcutaneous daily, Pepcid 20 mg p.o. b.i.d., Solu-Medrol 40 mg IV every 12, metoprolol 25 mg p.o. b.i.d., Flagyl, IV morphine every 4 hours p.r.n., Zofran 4 mg every 4 hours p.r.n. LABORATORY DATA: White count 8.5, hemoglobin 13.1, hematocrit 39, platelet count of 251. Sodium 138, potassium 4.4, BUN 22, creatinine 0.8. ASSESSMENT: 1. Acute appendicitis status post appendectomy. 2. New onset atrial fibrillation. 3. Urinary tract infection. 4. Leukocytosis. 5. Anemia. PLAN: She is currently on IV antibiotics with Flagyl and Zosyn. Urine culture positive for Klebsiella pneumoniae and Enterobacter. Infectious diseases following. Continue bronchodilators. Continue deep vein thrombosis prophylaxis with Lovenox 40 mg subcutaneous daily, continue Pepcid 20 mg p.o. b.i.d., we will continue Lopressor 25 mg p.o. b.i.d., on Solu-Medrol 40 mg every 12 hours, continue to wean steroids, pain control with medications. Zofran every 4 hours p.r.n. for nausea. Becca Hernandez MD
[2016-09-27] MEDS: Albuterol-Ipratrop 3 mg / 0.5 (3 ml) UD IH SCH ×3 (02:30→13:36)
--- NOTE | 2016-09-27 02:54 | PN ---
DATE: 09/27/2016 SUBJECTIVE: She is sitting comfortably in chair and in no acute distress. Abdominal pain decreased, heart rate is in 70s and 80s yesterday. She was tachycardiac up to 140 per minute. No events overnight. She has been afebrile. REVIEW OF SYSTEMS: As per HPI. A 12 point review of system is reviewed and negative. MEDICATION: Tylenol 650 q. 6 hours p.r.n., DuoNeb q. 2 hour p.r.n., Augmentin q. 6 hours, Lovenox 40 mg subcutaneous daily, Pepcid 20 mg p.o. b.i.d., Solu-Medrol 40 mg q. 12 hour, metoprolol 25 mg b.i.d., Flagyl 500 q. 8 hour, morphine 4 mg IV q. 4 hour p.r.n., and Zofran 4 mg IV q. 4 hours p.r.n. LABORATORY DATA: White count 8.5, hemoglobin 11.6, hematocrit 35.1, platelet 232. Sodium 137, potassium 4.1, calcium 7.9, creatinine 0.9. ASSESSMENT: 1. Acute appendicitis. 2. New onset atrial fibrillation. 3. Urinary tract infection. 4. Anemia. 5. Leukocytosis. PLAN: She is currently on IV antibiotics with Flagyl and Augmentin. She has Escherichia coli and Enterobacter urinary tract infection. Pain control with current morphine dose 4 mg q. 6 hours p.r.n, will continue same. No nausea. No vomiting. Continue bronchodilators. Blood count improving. Leukocytosis resolved. Hemoglobin declined to 11.6, on admission it was 16. We will continue to monitor hemoglobin and hematocrit. Renal functions are normal. LFTs are within normal limits. Becca Hernandez MD
[2016-09-27] MEDS: Ampicillin/Sulbactam 3 GM in Sodium Chloride 0.9% 100 ML IVPB SCH ×2 (05:05→12:39)
[2016-09-27] MEDS: metroNIDAZOLE IV 500 mg/100 ml 500 MG/100 ML BAG IVPB SCH ×2 (05:07→13:18)
[2016-09-27 06:19] LABS: HEMOGLOBIN 11.5 gm/dL (12.0-16.0); MEAN CELL VOLUME 92.4 fL (80.0-105.0); MEAN CORPUSCULAR HEMOGLOBIN 30.2 pg (25.0-35.0); MEAN CORPUSCULAR HGB CONC 32.7 g/dl (31.0-37.0); MEAN PLATELET VOLUME 10.3 fl (7.0-11.0); PLATELET COUNT 247 10^3/uL (120.0-450.0); RBC 3.81 10^6/uL (3.5-6.1); RED CELL DISTRIBUTION WIDTH 13.9 % (11.5-14.5); WHITE BLOOD COUNT 10.2 10^3/ul (4.5-11.0)
[2016-09-27 06:31] VITALS: RESP 20; TEMP 99.1; O2SAT 96
[2016-09-27 06:39] LABS: ALB/GLOB RATIO 0.9 (1.1-1.8); ALT/SGPT 21 U/L (7-56); AST/SGOT 29 U/L (15-39); BLOOD UREA NITROGEN 24 mg/dL (7-21); CALCIUM 8.1 mg/dL (8.4-10.5); GFR AFRICAN-AMERICAN > 60; GFR NON-AFRICAN AMERICAN > 60
[2016-09-27 06:59] LABS: BAND 9 % (0-2); LYMPHOCYTE 2 % (22.0-35.0); MONOCYTE 2 % (1.0-6.0); NEUTROPHIL 87 % (50.0-70.0); PLATELET ESTIMATE NORMAL (NORMAL)
--- NOTE | 2016-09-27 08:00 | CP.PCM.PN ---
Subjective - Date & Time of Evaluation Date of Evaluation: 09/27/16 Time of Evaluation: 07:00 - Subjective Subjective: Stable on 2R now. No CP or SOB. Taking HH diet now. V/S noted. RSR, Brief runs of long cycle Mobitz 1 2nd degree AVB noted PE: Lungs: rhonchi Cor.: S1S2 Abd.: bandaged Ext.: no edema Neuro.: alert I/O: 640/885 Labs noted. BC x2 NG at 48 hrs. Urine C+S: + 2 orgs. CXR 09/25 noted. Focal infiltrate R base, etc ECG 09/25/16: AJR , PRWP, IMI, old, NSSTW changes Objective - Vital Signs/Intake and Output Vital Signs (last 24 hours): Temp Pulse Resp BP Pulse Ox 99.1 F 71 20 158/78 H 96 09/27/16 06:00 09/27/16 06:00 09/27/16 06:00 09/27/16 06:00 09/27/16 06:00 Intake and Output: 09/27/16 09/27/16 06:59 18:59 Intake Total 640 Output Total 875 Balance -235 - Medications Medications: Current Medications Acetaminophen (Tylenol 325mg Tab) 650 mg PO Q6H PRN PRN Reason: Fever >100.4 F Last Admin: 09/25/16 15:38 Dose: 650 mg Albuterol/Ipratropium (Duoneb 3 Mg/0.5 Mg (3 Ml) Ud) 3 ml IH [id number] [facility] Last Admin: 09/27/16 07:28 Dose: 3 ml Albuterol/Ipratropium (Duoneb 3 Mg/0.5 Mg (3 Ml) Ud) 3 ml IH Q2H PRN PRN Reason: Shortness of Breath Last Admin: 09/25/16 18:11 Dose: 3 ml Benzocaine/Menthol (Cepacol Sore Throat) 1 anthony MT Q2H PRN PRN Reason: Sore Throat Last Admin: 09/26/16 13:42 Dose: 1 anthony Enoxaparin Sodium (Lovenox) 40 mg SC DAILY [facility]AN[facility] PRN Reason: Protocol Last Admin: 09/26/16 09:32 Dose: 40 mg Famotidine (Pepcid) 20 mg PO 1000,2200 [facility] Last Admin: 09/26/16 22:46 Dose: 20 mg Ampicillin Sodium/Sulbactam (Sodium 3 gm/ Sodium Chloride) 100 mls @ 200 mls/ hr IVPB Q6 ALE[facility]ANDRA PRN Reason: Protocol Last Admin: 09/27/16 05:05 Dose: 200 mls/hr Metronidazole (Flagyl) 500 mg in 100 mls @ 100 mls/hr IVPB Q8 [facility]LE[facility]AN[facility] PRN Reason: Protocol Last Admin: 09/27/16 05:07 Dose: 100 mls/hr Methylprednisolone (Solu-Medrol) 40 mg IVP Q12 [facility] Last Admin: 09/26/16 22:48 Dose: 40 mg Metoprolol Tartrate (Lopressor) 12.5 mg PO BID [facility] Morphine Sulfate (Morphine) 4 mg IVP Q6H PRN PRN Reason: Pain, moderate (4-7) Last Admin: 09/26/16 15:45 Dose: 4 mg Ondansetron HCl (Zofran Inj) 4 mg IVP Q4H PRN PRN Reason: Nausea/Vomiting Last Admin: 09/25/16 14:25 Dose: 4 mg - Labs Labs: 09/27/16 05:40 09/27/16 05:40 PT 13.4 Seconds (9.9-11.8) H 09/24/16 10:50 INR 1.24 (0.93-1.08) H 09/24/16 10:50 APTT 27.0 Seconds (23.7-30.8) 09/24/16 10:50 Assessment and Plan - Assessment and Plan (Free Text) Assessment: Abd, pain, nausea, vomiting, acute AP and UTI S/P appendectomy and abscess drainage UTI PAF HLD COPD/Former Smoker Diverticulitis H/O small pericardial effusion on echo 03/09 Focal infiltrate on CXR 09/25/16 Plan: AB As per surgical team, ID and Dr. Mac reduce metoprolol 12.5 BID OOB/PT monitor I/O, labs, tel, sats., etc. Check F/U echo
--- NOTE | 2016-09-27 08:10 | OP ---
DATE: 09/24/2016 DESCRIPTION OF PROCEDURE: Staci Rasmussen was taken to the operating room for acute appendicitis. Laparoscopy was performed to the umbilicus. After the successful timeout, the patient was accessed by name, number, birthday and wrist band, her consent by sridevi. The abdomen was prepped and draped in a usual manner, a supraumbilical incision was made through the skin and subcutaneous tissues. The Veress needle was used to enter the abdomen and followed by the Visiport. The appendix was seen in the right lower quadrant densely adhered to the right lower quadrant. Two ports were placed for traction and after extended time not making any progress, the abdomen was entered through the midline in an open procedure. The cecum was rolled towards the brine mixer operator on the left side and the cecum and appendix were shortly and bluntly removed from the retroperitoneum. The appendix was large, bulky, obviously inflamed. The adhesions of the right lower quadrant at the cecum were taken down. There was a small perforation in the cecum at the base. The appendix was then brought up into the wound. The area was mapped out with wet laps. There was no contamination. The base of the appendix was taken with a ALEX including the perforation. The appendix was removed and the area was cleaned and dried. The Chilango was placed. The area was then inverted with soaked lamberts. There is nothing else on toward. There was a fair amount of fluid which is aspirated and sent before irrigation to the lab. The omentum was placed in the abdomen, right lower quadrant. The area was drained with a Chilango it is trimmed on both end and sutured in place. Incisions were closed with running #1 PDS, above and below, tied in the middle. Subcutaneous tissue with Vicryl and corazon. The patient was taken to ICU. Sponge, needle, and counts were correct. Milo Baez MD
--- NOTE | 2016-09-27 08:20 | CP.PCM.PN ---
Subjective - Date & Time of Evaluation Date of Evaluation: 09/27/16 Time of Evaluation: 07:30 - Subjective Subjective: Surgery Progress Note for Dr. Baez Patient seen and examined at bedside. No acute events overnight. Patient reports no new BM or flatus, but also admits not ambulating. Only ambulation was OOB to chair for several hours yesterday. Denies significant pain. No nausea/emesis, chest pain, shortness of breath. Objective - Vital Signs/Intake and Output Vital Signs (last 24 hours): Temp Pulse Resp BP Pulse Ox 99.1 F 71 20 158/78 H 96 09/27/16 06:00 09/27/16 06:00 09/27/16 06:00 09/27/16 06:00 09/27/16 06:00 Intake and Output: 09/27/16 09/27/16 06:59 18:59 Intake Total 640 Output Total 875 Balance -235 - Medications Medications: Current Medications Acetaminophen (Tylenol 325mg Tab) 650 mg PO Q6H PRN PRN Reason: Fever >100.4 F Last Admin: 09/25/16 15:38 Dose: 650 mg Albuterol/Ipratropium (Duoneb 3 Mg/0.5 Mg (3 Ml) Ud) 3 ml IH [id number] [facility] Last Admin: 09/27/16 07:28 Dose: 3 ml Albuterol/Ipratropium (Duoneb 3 Mg/0.5 Mg (3 Ml) Ud) 3 ml IH Q2H PRN PRN Reason: Shortness of Breath Last Admin: 09/25/16 18:11 Dose: 3 ml Benzocaine/Menthol (Cepacol Sore Throat) 1 anthony MT Q2H PRN PRN Reason: Sore Throat Last Admin: 09/26/16 13:42 Dose: 1 anthony Enoxaparin Sodium (Lovenox) 40 mg SC DAILY ALEJANDRA PRN Reason: Protocol Last Admin: 09/26/16 09:32 Dose: 40 mg Famotidine (Pepcid) 20 mg PO 1000,2200 [facility] Last Admin: 09/26/16 22:46 Dose: 20 mg Ampicillin Sodium/Sulbactam (Sodium 3 gm/ Sodium Chloride) 100 mls @ 200 mls/ hr IVPB Q6 ALEJANDRA PRN Reason: Protocol Last Admin: 09/27/16 05:05 Dose: 200 mls/hr Metronidazole (Flagyl) 500 mg in 100 mls @ 100 mls/hr IVPB Q8 [facility] PRN Reason: Protocol Last Admin: 09/27/16 05:07 Dose: 100 mls/hr Methylprednisolone (Solu-Medrol) 40 mg IVP Q12 [facility] Last Admin: 09/26/16 22:48 Dose: 40 mg Metoprolol Tartrate (Lopressor) 12.5 mg PO BID [facility] Morphine Sulfate (Morphine) 4 mg IVP Q6H PRN PRN Reason: Pain, moderate (4-7) Last Admin: 09/26/16 15:45 Dose: 4 mg Ondansetron HCl (Zofran Inj) 4 mg IVP Q4H PRN PRN Reason: Nausea/Vomiting Last Admin: 09/25/16 14:25 Dose: 4 mg - Labs Labs: 09/27/16 05:40 09/27/16 05:40 PT 13.4 Seconds (9.9-11.8) H 09/24/16 10:50 INR 1.24 (0.93-1.08) H 09/24/16 10:50 APTT 27.0 Seconds (23.7-30.8) 09/24/16 10:50 - Additional Findings Additional findings: - Constitutional Appears: Non-toxic, No Acute Distress, Sitting up in bed without overt difficulty or distress - Head Exam Head Exam: ATRAUMATIC, NORMAL INSPECTION, NORMOCEPHALIC - Eye Exam Eye Exam: EOMI, Normal appearance. Absent: Scleral icterus, Conjunctival injection Pupil Exam: Absent: Irregular, Unequal - ENT Exam ENT Exam: Mucous Membranes Moist, Normal Exam - Neck Exam Neck Exam: Full ROM, Normal Inspection - Respiratory Exam Respiratory Exam: Mildly Decreased Breath Sounds in all warren, NORMAL BREATHING PATTERN. absent: Accessory Muscle Use, Rales, Rhonchi, Wheezes, Tachypnea, Sylvester Cyanosis - Cardiovascular Exam Cardiovascular Exam: REGULAR RHYTHM, RRR, +S1, +S2 Absent: Tachycardia, Bradycardia, Irregular Rhythm - GI/Abdominal Exam GI & Abdominal Exam: Soft, Tenderness (minimal, over incision/drain sites), Normal Bowel Sounds, Chilango Drain with minimal serosanginous drainage, All dressings C/D/I. absent: Hyperactive Bowel Sounds, Distended, Firm, Guarding, Rigid - Extremities Exam Extremities Exam: Normal Inspection. absent: Pedal Edema - Neurological Exam Neurological Exam: Alert, Awake, Oriented x3, Following all commands appropriately, spontaneous movements in all extremities - Psychiatric Exam Psychiatric exam: Normal Affect, Normal Mood - Skin Skin Exam: Dry, Normal Color, Warm Assessment and Plan - Assessment and Plan (Free Text) Assessment: This is an 89 yo F with PMH of COPD, CAD, CHF, and vertigo who presented with diffuse abdominal pain with concurrent nausea/emesis, found to have appendicitis on abd CT. POD #3. Plan: 1) Appendectomy, lap converted to open, POD #3 -Advanced to heart-healthy diet, tolerating -pain mgmt: Morphine 4mg IV q6 PRN -Abx coverage with Flagyl/Unasyn -IVF d/c, tolerating PO -Monitor drain output -patient not ambulating much, OOB to chair yesterday, PT consulted -Encourage IS use, Pep valve use -GI/DVT ppx -Further recs as per Dr. Baez Will discuss with Dr. Baez
[2016-09-27] MEDS: MethylPREDNISolone 40 mg Vial IVP SCH (09:42)
[2016-09-27] MEDS: Enoxaparin 40 mg Syringe SC SCH (09:43)
[2016-09-27 09:48] VITALS: BP 154/79; PULSE 83
--- NOTE | 2016-09-28 02:24 | DS ---
HISTORY OF PRESENT ILLNESS: The patient is an [id number]-old female who came to the hospital and was found to have an acute appendicitis. The patient had improvement of her symptoms after the procedure. She did fairly well. She has no complaints of any chest pain or shortness of breath. No headache or dizziness. The patient is going to be discharged to the transitional care unit. She was also found to have urinary tract infection. PHYSICAL EXAMINATION: VITAL SIGNS: Temperature is 99.1, pulse 71, blood pressure 160/78, respirations 20, and O2 saturation 96%. GENERAL: The patient is lying in bed, flat, comfortable. HEENT: No oral lesion. Anicteric sclerae. Moist mucosa. NECK: No JVD, adenopathy, or thyromegaly. CARDIOVASCULAR: S1 and S2, regular. No murmurs, rubs, or gallops. LUNGS: Clear to auscultation bilaterally. No wheeze, rales, or rhonchi. ABDOMEN: Bowel sounds are positive, soft, nontender and nondistended. EXTREMITIES: no cyanosis, clubbing or edema. ASSESSMENT: 1. Acute appendicitis. 2. Status post appendectomy. 3. New onset atrial fibrillation, improved. 4. Dyslipidemia. 5. Chronic back pain. 6. Urinary tract infection. PLAN: The patient is currently comfortable. She is going to be discharged to the transitional care unit. I did speak to the surgery team regarding the case. She is on a heart healthy diet. I did speak to the patient's daughter, Clara, to give her an update on the patient's diagnosis and plan of care. She is okay with the patient going to the transitional care unit. CONDITION: Stable. ACTIVITIES: Increase as tolerated. Abhishek Mac MD
--- NOTE | 2016-09-28 09:59 | CARD ---
APPROVED REPORT EXAM: Two-dimensional and M-mode echocardiogram with Doppler and color Doppler. Other Information Quality : AverageRhythm : INDICATION Pericardial Effusion 2D DIMENSIONS RVDd3.3 (2.9-3.5cm)Left Atrium (2D)4.9 (1.6-4.0cm) IVSd1.1 (0.7-1.1cm)LVDd4.4 (3.9-5.9cm) PWd1.1 (0.7-1.1cm)LVDs3.1 (2.5-4.0cm) FS (%) 30.9 %LVEF (%)58.0 (>50%) M-Mode DIMENSIONS Aortic Root3.10 (2.2-3.7cm)Aortic Cusp Exc.1.20 (1.5-2.0cm) Aortic Valve AoV Peak Msupkjee110.0cm/sAoV VTI43.0cmLVOT Peak Qnfedwxr88.5cm/s LVOT VTI21.60cm Mitral Valve MV E Octefwao276.0cm/sMV A Mvtpeydy18.4cm/sE/A ratio1.7 TDI Lateral E' Peak V8.77cm/sMedial E' Peak V7.21cm/sE/Lateral E'14.0 E/Medial E'17.1 Pulmonary Valve PV Peak Pktasosd90.1cm/sPV Peak Grad.2mmHg Tricuspid Valve TR Peak Lpkhwgbl436qm/sRAP EIEPPWDR91osVzVS Peak Gr.53mmHg [id number] LEFT VENTRICLE The left ventricle is normal size. There is normal left ventricular wall thickness. The left ventricular function is normal. The left ventricular ejection fraction is within the normal range. There is normal LV segmental wall motion. RIGHT VENTRICLE The right ventricle is normal size. ATRIA The left atrium is moderately dilated. AORTIC VALVE The aortic valve is mildly calcified. MITRAL VALVE The mitral valve is normal in structure. Mitral annular calcification is mild. Mitral regurgitation is mild. TRICUSPID VALVE The tricuspid valve is normal in structure. There is mild to moderate tricuspid regurgitation. There is moderate-severe pulmonary hypertension. PULMONIC VALVE The pulmonic valve is not well visualized. GREAT VESSELS The aortic root is normal in size. PERICARDIAL EFFUSION There is a trace to small circumferential pericardial effusion. <Conclusion> The left ventricle is normal size. There is normal left ventricular wall thickness. The left ventricular function is normal. The aortic valve is mildly calcified. Aortic sclerosis. Mitral regurgitation is mild. There is mild to moderate tricuspid regurgitation. There is moderate-severe pulmonary hypertension. There is a trace to small circumferential pericardial effusion.
== END 2016-09-27 16:19 | DRG 854 ==
LOC: ED 10:15 → ERH 14:03 → CCU 16:13 → 2RNO 09-26 18:19 → 3RSO 09-27 12:15
PROVIDERS: ADMIT Internal Medicine Nephrology; ATTEND Internal Medicine Nephrology
PROC: 0DTJ0ZZ Resection of Appendix, Open Approach (ICD-10-PCS; principal; 2016-09-24 17:45)
DX: A41.9 Sepsis, unspecified organism (principal); I31.3 Pericardial effusion (noninflammatory); I95.9 Hypotension, unspecified; I48.0 Paroxysmal atrial fibrillation; I50.9 Heart failure, unspecified; K59.39 Other megacolon; N39.0 Urinary tract infection, site not specified; K35.80 Unspecified acute appendicitis; D64.9 Anemia, unspecified; I25.10 Atherosclerotic heart disease of native coronary artery without angina pectoris; E78.5 Hyperlipidemia, unspecified; G89.18 Other acute postprocedural pain; G89.29 Other chronic pain; M54.9 Dorsalgia, unspecified; J44.9 Chronic obstructive pulmonary disease, unspecified; Z87.19 Personal history of other diseases of the digestive system; K59.00 Constipation, unspecified; N39.41 Urge incontinence; Z87.440 Personal history of urinary (tract) infections; Z87.891 Personal history of nicotine dependence; Z90.49 Acquired absence of other specified parts of digestive tract; Z53.31 Laparoscopic surgical procedure converted to open procedure; Z91.018 Allergy to other foods; Z91.81 History of falling; Z87.892 Personal history of anaphylaxis; B96.1 Klebsiella pneumoniae [K. pneumoniae] as the cause of diseases classified elsewhere

== ENCOUNTER 2016-09-27 16:19 | Inpatient (IN) | payer OTHER ==
[2016-09-27] MEDS ORDERED: Benzocaine/Menthol (Cepacol) Lozenge MT PRN (17:05)
[2016-09-27] MEDS: Albuterol-Ipratrop 3 mg / 0.5 (3 ml) UD IH SCH (22:00)
[2016-09-27] MEDS: Morphine 4 mg/ml ISec IVP PRN (22:43)
[2016-09-27] MEDS: metroNIDAZOLE IV 500 mg/100 ml 500 MG/100 ML BAG IVPB SCH (22:44)
[2016-09-27] MEDS: MethylPREDNISolone 40 mg Vial IVP SCH (22:47)
[2016-09-27] MEDS ORDERED: Pneumococcal 23-Valent Vaccine IM ONE (23:34)
[2016-09-28] MEDS: Ampicillin/Sulbactam 3 GM in Sodium Chloride 0.9% 100 ML IVPB SCH ×3 (00:15→11:02)
[2016-09-28] MEDS: Albuterol-Ipratrop 3 mg / 0.5 (3 ml) UD IH SCH ×4 (02:15→20:34)
[2016-09-28] MEDS: Morphine 4 mg/ml ISec IVP PRN ×3 (04:56→21:29)
[2016-09-28] MEDS: metroNIDAZOLE IV 500 mg/100 ml 500 MG/100 ML BAG IVPB SCH ×3 (05:15→21:29)
[2016-09-28] MEDS: Enoxaparin 40 mg Syringe SC SCH (05:18)
[2016-09-28] MEDS ORDERED: Enoxaparin 150 mg Syringe SC SCH (06:00)
[2016-09-28 06:16] LABS: MEAN CELL VOLUME 92.2 fl (80.0-105.0); MEAN CORPUSCULAR HEMOGLOBIN 30.2 pg (25.0-35.0); MEAN CORPUSCULAR HGB CONC 32.8 g/dl (31.0-37.0); MEAN PLATELET VOLUME 10.2 fl (7.0-11.0); PLATELET COUNT 266 10^3/uL (120.0-450.0); RBC 3.97 10^6/uL (3.5-6.1); RED CELL DISTRIBUTION WIDTH 13.8 % (11.5-14.5); WHITE BLOOD COUNT 12.2 10^3/ul (4.5-11.0)
[2016-09-28 06:23] LABS: ALB/GLOB RATIO 0.9 (1.1-1.8); ALT/SGPT 28 U/L (7-56); AST/SGOT 22 U/L (15-39); BLOOD UREA NITROGEN 19 mg/dL (7-21); CALCIUM 8.4 mg/dL (8.4-10.5); GFR AFRICAN-AMERICAN > 60; GFR NON-AFRICAN AMERICAN > 60
[2016-09-28 06:56] LABS: BAND 8 % (0-2); LYMPHOCYTE 5 % (22.0-35.0); MONOCYTE 5 % (1.0-6.0); NEUTROPHIL 82 % (50.0-70.0); PLATELET ESTIMATE NORMAL (NORMAL)
--- NOTE | 2016-09-28 07:53 | CP.PCM.PN ---
Subjective - Date & Time of Evaluation Date of Evaluation: 09/28/16 Time of Evaluation: 07:20 - Subjective Subjective: Pt seen and examined at bedside. Pt resting comfortably in bed and has no new complaints at this time. Pt says she has not been eating 2/2 decreased appetite. Pt has not been OOB. Pt had a BM. Pt denies F/C, N/V, CP/SOB. Objective - Vital Signs/Intake and Output Vital Signs (last 24 hours): Temp Pulse Resp BP Pulse Ox 98.2 F 73 20 171/89 H 94 L 09/28/16 06:00 09/28/16 06:00 09/28/16 06:00 09/28/16 06:00 09/28/16 06:00 - Medications Medications: Current Medications Acetaminophen (Tylenol 325mg Tab) 650 mg PO Q6H PRN; Protocol PRN Reason: Fever >100.4 F Albuterol/Ipratropium (Duoneb 3 Mg/0.5 Mg (3 Ml) Ud) 3 ml IH Q2H PRN; Protocol PRN Reason: Shortness of Breath Albuterol/Ipratropium (Duoneb 3 Mg/0.5 Mg (3 Ml) Ud) 3 ml IH [id number] ALE[facility]ANDRA PRN Reason: Protocol Last Admin: 09/28/16 07:22 Dose: 3 ml Benzocaine/Menthol (Cepacol Sore Throat) 1 anthony MT Q2H PRN; Protocol PRN Reason: Sore Throat Enoxaparin Sodium (Lovenox) 40 mg SC 0600 [facility]LE[facility]AN[facility]A PRN Reason: Protocol Last Admin: 09/28/16 05:18 Dose: 40 mg Famotidine (Pepcid) 20 mg PO 1000,2200 [facility] PRN Reason: Protocol Last Admin: 09/27/16 22:47 Dose: 20 mg Metronidazole (Flagyl) 500 mg in 100 mls @ 100 mls/hr IVPB Q8 [facility]LE[facility]ANDRA PRN Reason: Protocol Last Admin: 09/28/16 05:15 Dose: 100 mls/hr Ampicillin Sodium/Sulbactam (Sodium 3 gm/ Sodium Chloride) 100 mls @ 200 mls/ hr IVPB Q6 [facility]LE[facility]ANDRA PRN Reason: Protocol Last Admin: 09/28/16 05:16 Dose: 200 mls/hr Methylprednisolone (Solu-Medrol) 40 mg IVP Q12 [facility]LE[facility] PRN Reason: Protocol Last Admin: 09/27/16 22:47 Dose: 40 mg Metoprolol Tartrate (Lopressor) 12.5 mg PO 0800,1700 [facility] PRN Reason: Protocol Morphine Sulfate (Morphine) 4 mg IVP Q6H PRN; Protocol PRN Reason: Pain, moderate (4-7) Last Admin: 09/28/16 04:56 Dose: 4 mg Ondansetron HCl (Zofran Inj) 4 mg IVP Q4H PRN; Protocol PRN Reason: Nausea/Vomiting - Labs Labs: 09/28/16 05:35 09/28/16 05:35 - Constitutional Appears: Non-toxic, No Acute Distress - Head Exam Head Exam: NORMAL INSPECTION - Eye Exam Eye Exam: EOMI - ENT Exam ENT Exam: Mucous Membranes Moist - Neck Exam Neck Exam: Full ROM - Respiratory Exam Respiratory Exam: NORMAL BREATHING PATTERN. absent: Accessory Muscle Use, Respiratory Distress, Stridor - Cardiovascular Exam Cardiovascular Exam: REGULAR RHYTHM. absent: Bradycardia, Tachycardia - GI/Abdominal Exam GI & Abdominal Exam: Soft. absent: Distended Additional comments: Incision clean, dry and intact with corazon in place. No drainage. No surrounding erythema. 7 cc serosanguinous fluid emptied from Chilango drain. - Neurological Exam Neurological Exam: Alert, Awake, Oriented x3 - Psychiatric Exam Psychiatric exam: Normal Affect, Normal Mood - Skin Skin Exam: Dry, Intact, Normal Color, Warm Assessment and Plan - Assessment and Plan (Free Text) Assessment: 89 y/o F POD#4 s/p ex-lap with appendectomy Plan: - Vanilla boost/ensure - Pt cleared from a surgical standpoint once PT is getting her OOB - Pt to f/u with Dr. Baez's office in 10-14 days Pt will be d/w Dr. Baez. Lacy Levy DO PGY1
[2016-09-28] MEDS: Metoprolol Succinate 25 mg XL Tab PO SCH (08:48)
[2016-09-28] MEDS: MethylPREDNISolone 40 mg Vial IVP SCH ×2 (10:11→21:32)
[2016-09-28] MEDS: Amoxicillin-Clav 500-125 mg Tab PO SCH (22:27)
[2016-09-29] MEDS: Albuterol-Ipratrop 3 mg / 0.5 (3 ml) UD IH PRN ×3 (00:43→13:25)
--- NOTE | 2016-09-29 01:37 | PN ---
DATE: 09/28/2016 SUBJECTIVE: The patient has no complaints of any chest pain, shortness of breath, or headaches. She was admitted from the acute side of the hospital to the transitional care unit for rehab. I did review the initial H and P I do agree with this. PHYSICAL EXAMINATION: VITAL SIGNS: Temperature is 98.1, pulse is 78, blood pressure is 156/75, and respirations 14. GENERAL: The patient is lying in bed, flat, comfortable. HEENT: No oral lesion. Anicteric sclerae. Moist mucosa. NECK: No JVD, adenopathy, or thyromegaly. CARDIOVASCULAR: S1 and S2, regular. No murmurs, rubs, or gallops. LUNGS: Clear to auscultation bilaterally. No wheeze, rales, or rhonchi. ABDOMEN: Bowel sounds are positive, soft, nontender and nondistended. EXTREMITIES: no cyanosis, clubbing or edema. LABORATORY DATA: Creatinine is 0.7. ASSESSMENT: 1. Appendicitis, status post appendectomy. 2. Atrial fibrillation. 3. Dyslipidemia. 4. Chronic back pain. 5. Urinary tract infection secondary to Enterobacter and Klebsiella. PLAN: The patient is currently comfortable. She has white count of 12.2. I will repeat her blood work. She is on morphine for pain. She is on metoprolol. The patient is receiving ampicillin and sulbactam. She is on Zofran as needed. She has a drain that is in place. She is being followed by cardiology. Abhishek Mac MD
[2016-09-29] MEDS: Albuterol-Ipratrop 3 mg / 0.5 (3 ml) UD IH SCH (02:36)
[2016-09-29] MEDS: Amoxicillin-Clav 500-125 mg Tab PO SCH ×2 (06:03→13:29)
[2016-09-29] MEDS: Enoxaparin 40 mg Syringe SC SCH (06:03)
[2016-09-29] MEDS: metroNIDAZOLE IV 500 mg/100 ml 500 MG/100 ML BAG IVPB SCH (06:03)
--- NOTE | 2016-09-29 06:57 | PN ---
DATE: 09/29/2016 SUBJECTIVE: The patient has no complaints of any chest pain, shortness of breath, headaches or dizziness. PHYSICAL EXAMINATION: VITAL SIGNS: Temperature is 99, pulse is 84, blood pressure is 120/70, and respirations 20. GENERAL: The patient is lying in bed, flat, comfortable. HEENT: No oral lesion. Anicteric sclerae. Moist mucosa. NECK: No JVD, adenopathy, or thyromegaly. CARDIOVASCULAR: S1 and S2, regular. No murmurs, rubs, or gallops. LUNGS: Clear to auscultation bilaterally. No wheeze, rales, or rhonchi. ABDOMEN: Bowel sounds are positive, soft, nontender and nondistended. EXTREMITIES: No cyanosis, clubbing or edema. LABORATORY DATA: Yesterday's white count is 12.2. ASSESSMENT: 1. Appendicitis, status post appendectomy. 2. Atrial fibrillation. 3. Dyslipidemia. 4. Chronic back pain. 5. Urinary tract infection secondary to Enterobacter and Klebsiella. PLAN: The patient is currently on Flagyl and Augmentin. She is on nebulizer treatment. She is on Lovenox for deep venous thrombosis prophylaxis. The patient is on Tylenol p.r.n. She is receiving metoprolol. She is doing well with physical therapy. I did speak to the patient's daughter yesterday to give her an update on the patient's diagnosis and plan of care. She will need the stitches to be taken out prior to discharge. Abhishek Mac MD
[2016-09-29 07:07] LABS: MEAN CORPUSCULAR HGB CONC 32.6 g/dl (31.0-37.0); MEAN PLATELET VOLUME 10.2 fl (7.0-11.0); RED CELL DISTRIBUTION WIDTH 13.9 % (11.5-14.5); WHITE BLOOD COUNT 12.2 10^3/ul (4.5-11.0)
[2016-09-29 07:11] VITALS: RESP 18; O2SAT 99
[2016-09-29 07:22] LABS: ALBUMIN 3.1 g/dL (3.0-4.8); ALT/SGPT 25 U/L (7-56); AST/SGOT 21 U/L (15-39); BLOOD UREA NITROGEN 16 mg/dL (7-21); CALCIUM 8.4 mg/dL (8.4-10.5); GFR AFRICAN-AMERICAN > 60; GFR NON-AFRICAN AMERICAN > 60
--- NOTE | 2016-09-29 07:45 | CP.PCM.PN ---
Subjective - Date & Time of Evaluation Date of Evaluation: 09/29/16 Time of Evaluation: 07:00 - Subjective Subjective: Pt seen and examined at bedside. Pt resting comfortably in bed and has no new complaints at this time. Pt tolerating diet. Pt doing well with PT. Pt denies F/ C, N/V, CP/SOB. Objective - Vital Signs/Intake and Output Vital Signs (last 24 hours): Temp Pulse Resp BP Pulse Ox 98.4 F 69 18 143/94 H 99 09/29/16 06:00 09/29/16 06:00 09/29/16 06:00 09/29/16 06:00 09/29/16 06:00 - Medications Medications: Current Medications Acetaminophen (Tylenol 325mg Tab) 650 mg PO Q6H PRN; Protocol PRN Reason: Fever >100.4 F Albuterol/Ipratropium (Duoneb 3 Mg/0.5 Mg (3 Ml) Ud) 3 ml IH Q2H PRN; Protocol PRN Reason: Shortness of Breath Last Admin: 09/29/16 07:19 Dose: 3 ml Amoxicillin/Clavulanate Potassium (Augmentin 500 Mg-125 Mg Tab) 1 tab PO Q8 [facility] PRN Reason: Protocol Last Admin: 09/29/16 06:03 Dose: 1 tab Benzocaine/Menthol (Cepacol Sore Throat) 1 anthony MT Q2H PRN; Protocol PRN Reason: Sore Throat Enoxaparin Sodium (Lovenox) 40 mg SC 0600 [facility] PRN Reason: Protocol Last Admin: 09/29/16 06:03 Dose: 40 mg Metoprolol Succinate (Toprol Xl) 25 mg PO BRK [facility] Last Admin: 09/28/16 08:48 Dose: 25 mg Metronidazole (Flagyl) 500 mg PO Q8 [facility] PRN Reason: Protocol Last Admin: 09/29/16 07:02 Dose: 500 mg Prednisone (Prednisone Tab) 40 mg PO 0800 [facility] - Labs Labs: 09/29/16 06:00 09/29/16 06:00 - Constitutional Appears: Non-toxic, No Acute Distress - Head Exam Head Exam: NORMAL INSPECTION - Eye Exam Eye Exam: EOMI - ENT Exam ENT Exam: Mucous Membranes Moist - Respiratory Exam Respiratory Exam: NORMAL BREATHING PATTERN. absent: Accessory Muscle Use, Respiratory Distress, Stridor - Cardiovascular Exam Cardiovascular Exam: REGULAR RHYTHM. absent: Bradycardia, Tachycardia - GI/Abdominal Exam GI & Abdominal Exam: Soft. absent: Distended Additional comments: Incision clean, dry, and intact. No swelling or erythema surrounding incision. Drain in place but not holding suction. No drainage noted. - Extremities Exam Extremities Exam: Normal Inspection - Neurological Exam Neurological Exam: Alert, Awake, Oriented x3 - Psychiatric Exam Psychiatric exam: Normal Affect, Normal Mood - Skin Skin Exam: Dry, Intact, Normal Color, Warm Assessment and Plan - Assessment and Plan (Free Text) Assessment: 89 y/o F POD#5 s/p exploratory lap w/ appendectomy Plan: - drain out - cont PO abx - pt cleared from a surgical standpoint - f/u with Dr. Baez in office in 7-10 days Pt will be d/w Dr. Nestor Levy DO PGY1
[2016-09-29] MEDS: Metoprolol Succinate 25 mg XL Tab PO SCH (09:00)
[2016-09-29 11:32] VITALS: BP 139/59; PULSE 65; TEMP 98.3
--- NOTE | 2016-09-29 14:18 | PN ---
DATE: 09/29/2016 SUBJECTIVE: The patient is seen sitting in chair on TCU. She states she is comfortable. She has been participating activities. She is unaware of any recent palpitations. OBJECTIVE: GENERAL: She is an elderly woman who appears comfortable at the present time. VITAL SIGNS: Blood pressure is 138/60 with a pulse of 66 and regular, respirations 14. She is afebrile. HEENT: No JVD. HEART: PMI normal position. Rhythm appears regular at the present time, soft systolic murmur in the left sternal border. CHEST: Few scattered rhonchi. ABDOMEN: Soft and nontender with normoactive bowel sounds. EXTREMITIES: No edema. DIAGNOSTIC DATA: Potassium of 4.4 and BUN and creatinine of 16 and 0.7. White count is 12.2 and hemoglobin and hematocrit are 12 and 36.8 with a platelet count 265,000. MEDICATIONS: Her current medications remain Augmentin, DuoNeb inhaler, Flagyl, Lovenox, prednisone, Toprol-XL 25 mg daily and Tylenol. IMPRESSION: 1. Paroxysmal atrial fibrillation, appears stable at the present time. 2. Recent appendicitis, status post appendectomy, stable. 3. Urinary tract infection. 4. History of hyperlipidemia. RECOMMENDATIONS: From a cardiac standpoint, she appears stable at the present time. Continue low dose beta-iva therapy is advised. If she has evidence of recurrent atrial fibrillation, consideration may need to be given to chronic anticoagulation therapy. She was encouraged to increase activity as able. We will be happy to follow her as needed. Matt Stringer MD
[2016-09-29] MEDS ORDERED: Morphine 4 mg/ml ISec IVP PRN (15:53)
[2016-09-29] MEDS ORDERED: Lactated Ringer's 1,000 ML IV SCH (16:05)
[2016-09-29] MEDS ORDERED: Ampicillin/Sulbactam 3 GM in Sodium Chloride 0.9% 100 ML IVPB SCH (18:00)
[2016-09-29] MEDS ORDERED: metroNIDAZOLE IV 500 mg/100 ml 500 MG/100 ML BAG IVPB SCH (22:00)
== END 2016-09-29 19:32 | disposition short-term general hospital (02) | DRG 394 ==
LOC: TRCU 16:19
PROVIDERS: ADMIT Internal Medicine Nephrology; ATTEND Internal Medicine Nephrology
PROC: F07Z9ZZ Gait Training/Functional Ambulation Treatment (ICD-10-PCS; principal; 2016-09-28)
PROC: F08Z4ZZ Home Management Treatment (ICD-10-PCS; 2016-09-28)
DX: K35.80 Unspecified acute appendicitis (principal); N39.0 Urinary tract infection, site not specified; I48.0 Paroxysmal atrial fibrillation; Z98.890 Other specified postprocedural states; E78.5 Hyperlipidemia, unspecified; B96.1 Klebsiella pneumoniae [K. pneumoniae] as the cause of diseases classified elsewhere; B96.89 Other specified bacterial agents as the cause of diseases classified elsewhere; G89.29 Other chronic pain; M54.9 Dorsalgia, unspecified

== ENCOUNTER 2016-09-29 19:32 | Inpatient (IN) | payer MEDICARE, OTHER ==
[2016-09-29 19:32] VITALS: BMI 29.0
[2016-09-29] MEDS ORDERED: Piperacillin/Tazobact 3.375 gm 100 ML IV STA (19:55)
[2016-09-29] MEDS ORDERED: metroNIDAZOLE IV 500 mg/100 ml 500 MG/100 ML BAG IVPB STA (19:56)
[2016-09-29] MEDS ORDERED: Sodium Chloride 0.9% 1,000 ML IV STA ×2 (20:12→22:40)
--- NOTE | 2016-09-29 20:59 | ED PDOC ---
Arrival/HPI - General Chief Complaint: Abdominal Pain Time Seen by Provider: 09/29/16 19:40 Historian: Patient - History of Present Illness Narrative History of Present Illness (Text): 09/29/16 20:50 An 89 year old female whose past medical history includes, COPD, A-fib, not on anticoagulants, DJD, vertigo, diverticulitis, was recently s/p appendectomy ( perforated appendix) presents from TCU 5 days post op following onset of lower abdominal pain, the site of the recent ADWOA drain removal. Pt with noted slight fecal drainage. Pt was seen and evaluated by surgeon Dr. Baez. technical operations vice president sent to emergency department for readmission to hospital. Pt had undergone CT of Abdomen/Pelvis hours earlier; unofficial report shows no acute processes. Pt currently complains of left lower abdominal discomfort. Patient denies fevers, chills, nausea vomiting, diarrhea, chest pain, shortness of breath, or any other complaint. Time/Duration: Prior to Arrival Symptom Onset: Sudden Symptom Course: Unchanged Activities at Onset: Rest, Light Context: Home Past Medical History - Provider Review Nursing Documentation Reviewed: Yes - Infectious Disease Hx of Infectious Diseases: None - Tetanus Immunization Tetanus Immunization: Unknown - Cardiac Hx Cardiac Disorders: Yes - Pulmonary Hx Chronic Obstructive Pulmonary Disease (COPD): Yes - Neurological Hx Neurological Disorder: No - HEENT Hx HEENT Disorder: Yes - Renal Hx Renal Disorder: No - Endocrine/Metabolic Hx Endocrine Disorders: No - Hematological/Oncological Hx Blood Disorders: No - Integumentary Hx Dermatological Disorder: Yes (ROSACEAE) - Musculoskeletal/Rheumatological Hx Falls: Yes (12 DAYS AGO,[facility].FALL) - Gastrointestinal Hx Gastrointestinal Disorders: Yes (APPENDICITIS WITH OPEN APPENDECTOMY, DIVERTICULITIS,HIATAL HERNIA) - Genitourinary/Gynecological Hx Genitourinary Disorders: Yes (UTI) Hx Reproductive Disorders: No - Psychiatric Hx Depression: No Hx Emotional Abuse: No Hx Physical Abuse: No Hx Substance Use: No - Surgical History Hx Appendectomy: Yes - Anesthesia Hx Anesthesia: Yes Hx Anesthesia Reactions: No Hx Malignant Hyperthermia: No - Suicidal Assessment Feels Threatened In Home Enviroment: No Family/Social History - Physician Review Nursing Documentation Reviewed: Yes Family/Social History: No Known Family HX Smoking Status: Former Smoker Hx Alcohol Use: Yes (WINE OCCASIONALLY) Hx Substance Use: No Allergies/Home Meds Allergies/Adverse Reactions: Allergies pineapple Allergy (Verified 09/27/16 21:27) ANAPHYLAXIS Home Medications: Home Meds Medication Instructions Recorded Confirmed No Known Home Med 09/24/16 09/29/16 Review of Systems - Physician Review All systems were reviewed & negative as marked: Yes - Review of Systems Constitutional: absent: Fevers, Night Sweats Respiratory: absent: SOB Cardiovascular: absent: Chest Pain Gastrointestinal: Abdominal Pain (left lower abdomen discomfort). absent: Diarrhea, Nausea, Vomiting Neurological: absent: Headache, Dizziness Physical Exam Vital Signs Reviewed: Yes Vital Signs Temp Pulse Resp BP Pulse Ox 09/30/16 00:45 98.6 F 74 16 123/65 94 L 09/29/16 22:31 77 18 92 L 09/29/16 20:10 100.1 F H 09/29/16 19:42 99.6 F 72 18 146/76 95 09/29/16 19:32 99.6 F 72 16 146/76 95 Temperature: Afebrile Blood Pressure: Normal Pulse: Regular Respiratory Rate: Normal Appearance: Positive for: Well-Appearing, Non-Toxic, Comfortable Pain Distress: None Mental Status: Positive for: Alert and Oriented X 3 - Systems Exam Abdomen: Present: Tenderness (Tenderned to palpation to left lower abdomen), Other (Abdomen soft. Surgical staple midlower abdomen in place. 1.5 sonometer surgical wound left abdomen with some scanti fecat discharge noted. Would dressing pressent over the area. ). No: Rebound, Guarding Psychiatric: Present: Alert, Oriented x 3, Normal Insight, Normal Concentration Medical Decision Making ED Course and Treatment: 09/29/16 20:50 Impression: An 89 year old female recently s/p appendectomy with lower abdominal pain at the site of recent ADWOA drain removal. Differential Diagnosis included but are not limited to: intestinal abscess vs. fistula vs. perforated bowel Plan: -- EKG -- Labs -- Chest X-ray -- Tylenol, metroNIDAZOLE, IV Fluids, and Zosyn -- Blood Culture -- Urinalysis -- Reassess and disposition Progress Notes: technical operations vice president Dr. Mejia present in emergency department. States Dr. Baez and Dr. James, admitting physician, are aware. I will administer IV fluids and antibiotics here and readmit to telemetry for management observation. 09/29/16 20:50: technical operations vice president Dr. Mejia in emergency department to re-evaluate pt. 09/29/16 21:17: Pt states that she feels better following recent administration of morphine. 09/29/16 22:[address] Mac, who is aware and agrees with plan. Accepts pt in to his service. Pt will go to Telemetry observation for abdominal pain s/p appendectomy. Requests Dr. Mcwilliams on consult. - Lab Interpretations Microbiology Results: Microbiology Results 09/29/16 23:55 Blood Blood Culture - Preliminary NO GROWTH AFTER 48 HOURS 09/29/16 23:45 Blood Blood Culture - Preliminary NO GROWTH AFTER 48 HOURS Lab Results: 09/30/16 08:50 09/30/16 08:50 Lab Results 09/30/16 08:50: Sodium 136, Potassium 4.2, Chloride 100, Carbon Dioxide 27, Anion Gap 13, BUN 18, Creatinine 0.7, Est GFR ( Amer) > 60, Est GFR (Non- Af Amer) > 60, Random Glucose 111 H, Calcium 8.3 L, Total Bilirubin 0.8, AST 14 L, ALT 27, Alkaline Phosphatase 30 L, Total Protein 5.8, Albumin 2.8 L, Globulin 2.9, Albumin/Globulin Ratio 1.0 L 09/30/16 08:50: WBC 21.1 H D, RBC 4.74, Hgb 14.4, Hct 43.4, MCV 91.6, MCH 30.4, MCHC 33.2, RDW 13.9, Plt Count 300, MPV 10.1, Neutrophils % (Manual) 92 H, Band Neutrophils % 2, Lymphocytes % (Manual) 4 L, Monocytes % (Manual) 2, Platelet Evaluation Normal 09/30/16 04:20: pCO2 37, pO2 73.0 L, HCO3 27.6, ABG pH 7.48 H, ABG Total CO2 28.7 H, ABG O2 Saturation 97.3, ABG Base Excess 4.0 H, ABG Potassium 3.8, Glucose 110 H, Lactate 1.2, FiO2 28.0, Sodium 136.0, Chloride 104.0, Arterial Blood Potassium 3.8 09/30/16 03:40: POC Glucose (mg/dL) 106 09/30/16 02:30: Urine Color Dark yellow, Urine Appearance Cloudy, Urine pH 6.5, Ur Specific [place] 1.020, Urine Protein 30 H, Urine Glucose (UA) Negative, Urine Ketones Trace H, Urine Blood Large H, Urine Nitrate Positive H, Urine Bilirubin Moderate H, Urine Urobilinogen 2.0 H, Ur Leukocyte Esterase Large H, Urine RBC 2 - 5, Urine WBC 2 - 5, Ur Epithelial Cells 1 - 3, Urine Bacteria Few , Urine Other Uyeast 09/29/16 23:45: Blood Type A POSITIVE, Antibody Screen Negative, BBK History Checked Patient has bt 09/29/16 23:45: WBC 12.9 H, RBC 4.73, Hgb 14.7 D, Hct 42.8, MCV 90.5, MCH 31.1 , MCHC 34.3, RDW 13.7, Plt Count 329, MPV 10.1 09/29/16 23:45: Sodium 136, Potassium 4.1, Chloride 99, Carbon Dioxide 26, Anion Gap 15, BUN 16, Creatinine 0.6, Est GFR ( Amer) > 60, Est GFR (Non- Af Amer) > 60, Random Glucose 98, Calcium 8.6, Total Bilirubin 0.7, AST 20, ALT 30, Alkaline Phosphatase 35 L, Total Protein 6.2, Albumin 3.1, Globulin 3.1, Albumin/Globulin Ratio 1.0 L, Lipase 158 09/29/16 23:45: PT 12.8 H, INR 1.19 H, APTT 27.6 I have reviewed the lab results: Yes - RAD Interpretation Radiology Orders: 09/29/16 19:43 CHEST PORTABLE [RAD] Stat 09/30/16 03:58 ABDOMEN PORTABLE 1 VIEW [RAD] Stat - Medication Orders Current Medication Orders: Acetaminophen (Tylenol 325mg Tab) 650 mg PO Q4 PRN PRN Reason: Fever >100.4 F Albuterol/Ipratropium (Duoneb 3 Mg/0.5 Mg (3 Ml) Ud) 3 ml IH [id number] PRN PRN Reason: Shortness of Breath Last Admin: 10/01/16 02:10 Dose: 3 ml Enoxaparin Sodium (Lovenox) 40 mg SC DAILY ALEJANDRA PRN Reason: Protocol Last Admin: 10/01/16 09:51 Dose: 40 mg Piperacillin Sod/Tazobactam Sod (Zosyn 3.375 In Ns 100ml) 100 mls @ 200 mls/hr IVPB Q6 ALEJANDRA PRN Reason: Protocol Stop: 10/07/16 10:23 Last Admin: 10/01/16 23:45 Dose: 200 mls/hr Hydromorphone HCl (Dilaudid 0.2 Mg/Ml Panel Lay Up Worker) 25 mls @ 0 mls/hr IV .Q0M PRN PRN Reason: TITRATE PER MD ORDER Last Admin: 10/01/16 18:37 Dose: 0.2 mls/hr Fluconazole (Diflucan Iv 400mg/200ml Ns) 200 mls @ 100 mls/hr IVPB DAILY ALEJANDRA PRN Reason: Protocol Last Admin: 10/01/16 09:51 Dose: 100 mls/hr Vancomycin HCl (Vancomycin 1gm) 1 gm in 250 mls @ 167 mls/hr IVPB Q12H ALEJANDRA PRN Reason: Protocol Last Admin: 10/01/16 19:14 Dose: 167 mls/hr Piperacillin Sod/Tazobactam Sod (Zosyn 3.375 In Ns 100ml) 100 mls @ 200 mls/hr IV Q6 ALEJANDRA PRN Reason: Protocol Last Admin: 10/01/16 18:02 Dose: 200 mls/hr Lactated Ringer's (Lactated Ringer's) 1,000 mls @ 50 mls/hr IV .Q20H ALEJANDRA Last Admin: 10/01/16 14:06 Dose: 50 mls/hr Levalbuterol HCl (Xopenex) 1.25 mg IH [id number] PRN PRN Reason: Shortness of Breath Last Admin: 09/30/16 13:24 Dose: 1.25 mg Metoclopramide HCl (Reglan) 10 mg IV ONCE PRN PRN Reason: Nausea/Vomiting Pantoprazole Sodium (Protonix Inj) 40 mg IVP DAILY [facility] Last Admin: 10/01/16 09:50 Dose: 40 mg Discontinued Medications Acetaminophen (Ofirmev) 1,000 mg IVPB .STK-MED ONE Stop: 09/30/16 13:31 Last Admin: 09/30/16 13:30 Dose: 1,000 mg Albuterol Sulfate (Albuterol 0.083% Inhal [place] (2.5 Mg/3 Ml) Ud) 2.5 mg INH ONCE STA Stop: 10/01/16 01:38 Bupivacaine HCl (Marcaine 0.5%) Confirm Administered Dose 30 ml .ROUTE .STK-MED ONE Stop: 09/30/16 10:20 Cefazolin Sodium (Ancef) Confirm Administered Dose 1 gm .ROUTE .STK-MED ONE Stop: 09/30/16 10:20 Last Admin: 09/30/16 10:25 Dose: 1 gm Enoxaparin Sodium (Lovenox) 30 mg SC Q12H ALEJANDRA PRN Reason: Protocol Fentanyl (Fentanyl) Confirm Administered Dose 100 mcg .ROUTE .STK-MED ONE Stop: 09/30/16 10:08 Glycopyrrolate (Robinul) Confirm Administered Dose 0.2 mg .ROUTE .STK-MED ONE Stop: 09/30/16 12:26 Hydromorphone HCl (Dilaudid) Confirm Administered Dose 0.5 mg .ROUTE .STK-MED ONE Stop: 09/30/16 13:19 Last Admin: 09/30/16 13:35 Dose: 0.5 mg Hydromorphone HCl (Dilaudid) 0.5 mg IVP Q15M PRN PRN Reason: Pain, moderate (4-7) Stop: 09/30/16 15:24 Hydromorphone HCl (Dilaudid) Confirm Administered Dose 0.5 mg .ROUTE .STK-MED ONE Stop: 09/30/16 13:35 Piperacillin Sod/Tazobactam Sod (Zosyn 3.375 In Ns 100ml) 100 mls @ 200 mls/hr IV STAT STA PRN Reason: Protocol Stop: 09/29/16 20:24 Last Admin: 09/30/16 00:20 Dose: 200 mls/hr Metronidazole (Flagyl) 500 mg in 100 mls @ 100 mls/hr IVPB STAT STA PRN Reason: Protocol Stop: 09/29/16 20:55 Last Admin: 09/30/16 02:48 Dose: 100 mls/hr Sodium Chloride (Sodium Chloride 0.9%) 1,000 mls @ 999 mls/hr IV .Q1H1M STA Stop: 09/29/16 21:12 Last Admin: 09/29/16 22:11 Dose: 999 mls/hr Sodium Chloride (Sodium Chloride 0.9%) 1,000 mls @ 100 mls/hr IV .Q10H STA Stop: 09/30/16 08:39 Last Admin: 08/10/17 01:43 Dose: Lactated Ringer's (Lactated Ringer's) 1,000 mls @ 120 mls/hr IV .Q8H20M [facility] Last Admin: 09/29/16 23:05 Dose: 120 mls/hr Lactated Ringer's (Lactated Ringer's) 1,000 mls @ 75 mls/hr IV .[id number] [facility] Stop: 09/30/16 15:25 Acetaminophen (Ofirmev) Confirm Administered Dose 1,000 mg in 100 mls @ ud IVPB .STK-MED ONE Stop: 09/30/16 13:29 Acetaminophen (Ofirmev) 1,000 mg in 100 mls @ 400 mls/hr IVPB ONCE ONE Stop: 09/30/16 13:44 Vancomycin HCl (Vancomycin 1gm) 1 gm in 250 mls @ 167 mls/hr IVPB DAILY [facility] PRN Reason: Protocol Last Admin: 09/30/16 15:25 Dose: 167 mls/hr Lactated Ringer's (Lactated Ringer's) 1,000 mls @ 100 mls/hr IV .Q10H [facility] Last Admin: 10/01/16 03:11 Dose: 100 mls/hr Lactated Ringer's (Lactated Ringer's) 1,000 mls @ 999 mls/hr IV .Q1H1M [facility] Last Admin: 10/01/16 02:12 Dose: 999 mls/hr Levalbuterol HCl (Xopenex) Confirm Administered Dose 1.25 mg .ROUTE .STK-MED ONE Stop: 09/30/16 13:14 Lidocaine HCl (Lidocaine 2% 20ml Vial) Confirm Administered Dose 20 ml .ROUTE .STK-MED ONE Stop: 09/30/16 10:09 Metoprolol Tartrate (Lopressor) Confirm Administered Dose 5 mg IVP .STK-MED ONE Stop: 09/30/16 13:41 Last Admin: 09/30/16 13:40 Dose: 2.5 mg Metoprolol Tartrate (Lopressor) 2.5 mg IVP ONCE ONE Stop: 09/30/16 13:44 Midazolam HCl (Versed Inj) Confirm Administered Dose 2 mg .ROUTE .STK-MED ONE Stop: 09/30/16 10:08 Morphine Sulfate (Morphine) 4 mg IVP Q4H PRN PRN Reason: Pain, severe (8-10) Last Admin: 09/30/16 02:46 Dose: 4 mg Re-Assess: MAE Pain Assessment Document 09/30/16 03:46 CO (Rec: 09/30/16 05:[address] [facility] [id number] Pain Reassessment Is this a pain reassessment? No Sleep Is patient sleeping during reassessment? No Presence of Pain Presence of Pain No Neostigmine Methylsulfate (Neostigmine Methylsulfate) Confirm Administered Dose 3 mg IV .STK-MED ONE Stop: 09/30/16 12:25 Ondansetron HCl (Zofran Inj) Confirm Administered Dose 4 mg .ROUTE .STK-MED ONE Stop: 09/30/16 12:30 Oxychlorosene Sodium (Clorpactin Wcs-90) Confirm Administered Dose 2 gm TOP .STK -MED ONE Stop: 09/30/16 10:21 Piperacillin Sod/Tazobactam Sod (Zosyn) Confirm Administered Dose 3.375 gm IVPB .STK-MED ONE Stop: 09/30/16 14:00 Propofol (Diprivan) Confirm Administered Dose 200 mg .ROUTE .STK-MED ONE Stop: 09/30/16 10:08 Rocuronium [place] (Zemuron) Confirm Administered Dose 50 mg .ROUTE .STK-MED ONE Stop: 09/30/16 10:10 Rocuronium [place] (Zemuron) Confirm Administered Dose 50 mg .ROUTE .STK-MED ONE Stop: 09/30/16 11:55 Sevoflurane (Ultane Novation) Confirm Administered Dose 250 ml .ROUTE .STK-MED ONE Stop: 09/30/16 11:05 Soap/Cleanser (Mastisol Adhesive) Confirm Administered Dose 1.332 ml TOP .STK- MED ONE Stop: 09/30/16 12:42 - Scribe Statement The provider has reviewed the documentation as recorded by the Arielibshawna Tovar Provider Scribe Attestation: All medical record entries made by the Scribe were at my direction and personally dictated by me. I have reviewed the chart and agree that the record accurately reflects my personal performance of the history, physical exam, medical decision making, and the department course for this patient. I have also personally directed, reviewed, and agree with the discharge instructions and disposition. Disposition/Present on Arrival - Present on Arrival Any Indicators Present on Arrival: No History of DVT/PE: No History of Uncontrolled Diabetes: No Urinary Catheter: No History of Decub. Ulcer: No History Surgical Site Infection Following: None - Disposition Have Diagnosis and Disposition been Completed?: Yes Diagnosis: Abdominal pain, Status post appendectomy Disposition: HOSPITALIZED Disposition Time: 22:30 Patient Plan: Observation Patient Problems: Current Active Problems Problem Status Onset Abdominal pain Acute Status post appendectomy Acute Condition: STABLE
[2016-09-29] MEDS ORDERED: Morphine 2 mg/ml ISec IVP PRN (22:51)
[2016-09-29] MEDS ORDERED: Lactated Ringer's 1,000 ML IV SCH (22:52)
--- NOTE | 2016-09-29 23:01 | CP.PCM.CON ---
History of Present Illness - History of Present Illness History of Present Illness: General Surgery Dr. Baez 89 y/o F w/ PMHx of COPD, Afib, CAD recently underwent laparoscopic, covernted to open, appendectomy on 09/24/2016. Pt tolerated the procedure well and was discharged to TCU on 09/27/2016. Pt was noted to have feculent material at drain site this AM on surgery rounds. Drain was removed and clean dressing applied to drain site. Dressing was found to be saturated later that afternoon with feculent fluid. CT Abd/Pelvis was ordered to evaluate for enterocutaneous fistula. While drinking the contrast, pt c/o worsening LLQ abd pain. Completed CT shows enterocutaenous fistula but no free are or fluid collection. Pt discharged from TCU and readmitted through the ED for further evaluation, antibiotics, and pain control. Pt S&E @bedside. Recently received dose of Morphine for pain. Currently, pt states pain improved. denies N/V, D/C, F/C, SOB, CP. Pt admits to productive cough w/ clear sputum. PMHx: COPD, Afib not on anticoagulation, CAD, DJD, vertigo, and diverticulitis Meds: reviewed in chart NKDA PSHx: lap converted to open appendectomy SHx:denies tobacco, EtOH, drug use FHx: noncontributory Review of Systems - Review of Systems All systems: reviewed and no additional remarkable complaints except (see HPI) Past Patient History - Infectious Disease Hx of Infectious Diseases: None - Tetanus Immunizations Tetanus Immunization: Unknown - Past Social History Smoking Status: Former Smoker - CARDIAC Hx Cardiac Disorders: Yes - PULMONARY Hx Chronic Obstructive Pulmonary Disease (COPD): Yes - NEUROLOGICAL Hx Neurological Disorder: No - HEENT Hx HEENT Problems: Yes - RENAL Hx Chronic Kidney Disease: No - ENDOCRINE/METABOLIC Hx Endocrine Disorders: No - HEMATOLOGICAL/ONCOLOGICAL Hx Blood Disorders: No - INTEGUMENTARY Hx Dermatological Problems: Yes (ROSACEAE) - MUSCULOSKELETAL/RHEUMATOLOGICAL Hx Falls: Yes (12 DAYS AGO,[facility].FALL) - GASTROINTESTINAL Hx Gastrointestinal Disorders: Yes (APPENDICITIS WITH OPEN APPENDECTOMY, DIVERTICULITIS,HIATAL HERNIA) - GENITOURINARY/GYNECOLOGICAL Hx Genitourinary Disorders: Yes (UTI) Hx Reproductive Disorders: No - PSYCHIATRIC Hx Depression: No Hx Emotional Abuse: No Hx Physical Abuse: No Hx Substance Use: No - SURGICAL HISTORY Hx Appendectomy: Yes - ANESTHESIA Hx Anesthesia: Yes Hx Anesthesia Reactions: No Hx Malignant Hyperthermia: No Meds Allergies/Adverse Reactions: Allergies Allergy/AdvReac Type Severity Reaction Status Date / Time pineapple Allergy ANAPHYLAXIS Verified 09/27/16 21:27 - Medications Medications: Current Medications Acetaminophen (Tylenol 325mg Tab) 650 mg PO Q4 PRN PRN Reason: Fever >100.4 F Sodium Chloride (Sodium Chloride 0.9%) 1,000 mls @ 100 mls/hr IV .Q10H STA Stop: 09/30/16 08:39 Lactated Ringer's (Lactated Ringer's) 1,000 mls @ 120 mls/hr IV .Q8H20M ALEJANDRA Morphine Sulfate (Morphine) 4 mg IVP Q4H PRN PRN Reason: Pain, severe (8-10) Morphine Sulfate (Morphine) 2 mg IVP Q4H PRN PRN Reason: Pain, moderate (4-7) Physical Exam - Constitutional Appears: Toxic, No Acute Distress - Head Exam Head Exam: NORMAL INSPECTION - Eye Exam Eye Exam: Normal appearance - ENT Exam ENT Exam: Mucous Membranes Moist - Respiratory Exam Respiratory Exam: NORMAL BREATHING PATTERN. absent: Accessory Muscle Use, Respiratory Distress - Cardiovascular Exam Cardiovascular Exam: absent: Bradycardia, Tachycardia - GI/Abdominal Exam GI & Abdominal Exam: Distended, Soft, Tenderness (LLQ) Additional comments: feculent fluid drain from LLQ incision midline incision c/d/i, well approximated - Extremities Exam Extremities exam: Positive for: normal inspection - Neurological Exam Neurological exam: Alert, Oriented x3 - Psychiatric Exam Psychiatric exam: Normal Affect, Normal Mood - Skin Skin Exam: Dry, Normal Color, Warm Results - Vital Signs Recent Vital Signs: Last Vital Signs Temp 100.1 F H 09/29/16 20:10 Pulse 77 09/29/16 22:31 Resp 18 09/29/16 22:31 BP 146/76 09/29/16 19:42 Pulse Ox 92 L 09/29/16 22:31 - Imaging and Cardiology CT scan - abdomen Status: Image reviewed by me, Report reviewed by me (enterocutaneous fistula; colitis; possible SBO, though no clear transition point; B/L pleural effusions and atelectasis; esophageal hiatal hernia) Assessment & Plan - Assessment and Plan (Free Text) Assessment: 89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 Pt discussed w/ Dr. Nestor Mejia DO PGY2
[2016-09-29] MEDS: Morphine 4 mg/ml ISec IVP PRN (23:08)
[2016-09-30] LABS: HEMOGLOBIN 14.7 g/dL (12.0-16.0); MEAN CELL VOLUME 90.5 fl (80.0-105.0); MEAN CORPUSCULAR HEMOGLOBIN 31.1 pg (25.0-35.0); MEAN CORPUSCULAR HGB CONC 34.3 g/dl (31.0-37.0); MEAN PLATELET VOLUME 10.1 fl (7.0-11.0); RBC 4.73 10^6/uL (3.5-6.1); RED CELL DISTRIBUTION WIDTH 13.7 % (11.5-14.5); WHITE BLOOD COUNT 12.9 10^3/ul (4.5-11.0)
[2016-09-30 00:10] LABS: INR 1.19 (0.93-1.08); PARTIAL THROMBOPLASTIN TIME 27.6 Seconds (23.7-30.8); PROTHROMBIN TIME 12.8 Seconds (9.9-11.8)
[2016-09-30 00:12] LABS: ALBUMIN 3.1 g/dL (3.0-4.8); ALT/SGPT 30 U/L (7-56); AST/SGOT 20 U/L (15-39); BLOOD UREA NITROGEN 16 mg/dL (7-21); CALCIUM 8.6 mg/dL (8.4-10.5); GFR AFRICAN-AMERICAN > 60; GFR NON-AFRICAN AMERICAN > 60; LIPASE 158 U/L (23-300)
[2016-09-30] MEDS: Morphine 4 mg/ml ISec IVP PRN (02:46)
[2016-09-30 02:56] LABS: PH,URINE 6.5 (4.7-8.0); URINE BILIRUBIN MODERATE (NEGATIVE); URINE BLOOD LARGE (NEGATIVE); URINE GLUCOSE (UA) NEGATIVE (NEGATIVE); URINE LEUKOCYTE ESTERASE LARGE Leu/uL (NEGATIVE); URINE NITRATE POSITIVE (NEGATIVE); URINE PROTEIN 30 mg/dL (<30 mg/dL)
[2016-09-30 02:57] LABS: URINE APPEARANCE CLOUDY (CLEAR); URINE COLOR DARK YELLOW (YELLOW)
[2016-09-30 03:13] LABS: URINE BACTERIA FEW (NEG)
[2016-09-30 04:25] LABS: ARTERIAL BLOOD GAS HCO3 27.6 mmol/L (21-28); ARTERIAL BLOOD GAS O2 SAT 97.3 % (95-98); ARTERIAL BLOOD GAS PCO2 37 mm/Hg (35-45); ARTERIAL BLOOD GAS PH 7.48 (7.35-7.45); ARTERIAL BLOOD GAS TCO2 28.7 mmol.L (22-28)
--- NOTE | 2016-09-30 07:27 | CP.PCM.CON ---
<Carrie Patterson - Last Filed: 09/30/16 15:12> History of Present Illness - History of Present Illness History of Present Illness: PGY-[address] Jeannette ARANA consult: intraabdominal infection Staci Gillette (272.2) 89 y/o F initially presented at [facility] with abdominal on the 09/24/16, and was found to have acute appendicitis s/p lap converted to open appendectomy. Today is POD#6. Post procedure patient was transferred to TCU for rehab, patient had a ADWOA drain which was removed yesterday after it was noted to be draining feculent material in the AM. 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 Last night patient c/o of abdominal pain at the site of drain removal and noted to be soaked with feculent material. Patient was transferred to ED for inpatient readmission. She had new onset afib which is now resolved. 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 Patient was giving zosyn and flagyl in the ED, and readmitted to tele floor for further management. Pt is in OR today for repair of the enterocutaneous fistula by surgery. In ED, T 100.1 rectal, 92% RA WBC 12.9, lactate 1.2, LFT and lipase wnl U/A WBC 2-5, (+) leuk est (+) nitrate Pt is kept NPO on receive zosyn and flagyl IV x 1 Hold anticoagulant for surgery ROS - (+) Cough with clear sputum Denies F/C, CP, SOB, N/V, D/C, dysuria, frequecny, change in urination color PMHx: COPD, Afib not on anticoagulation, CAD, DJD, vertigo, and diverticulitis PSHx: lap converted to open appendectomy SHx:denies tobacco, EtOH, drug use Allergy: NKDA Pineapple - analylasix Med: See JORDEN PMD: Dr. Sandoval Past Patient History - Infectious Disease Hx of Infectious Diseases: None - Tetanus Immunizations Tetanus Immunization: Unknown - Past Social History Smoking Status: Former Smoker - CARDIAC Hx Cardiac Disorders: Yes Hx Cardia Arrhythmia: Yes (A-fib) - PULMONARY Hx Respiratory Disorders: Yes Hx Chronic Obstructive Pulmonary Disease (COPD): Yes Hx Pneumonia: Yes - NEUROLOGICAL Hx Dizziness: Yes (vertigo) - HEENT Hx Cataracts: Yes (Bilateral surgery) - RENAL Hx Chronic Kidney Disease: No - ENDOCRINE/METABOLIC Hx Endocrine Disorders: No - HEMATOLOGICAL/ONCOLOGICAL Hx Blood Transfusions: No Hx Blood Transfusion Reaction: No (NA) - INTEGUMENTARY Hx Dermatological Problems: Yes Other/Comment: rosacaea - MUSCULOSKELETAL/RHEUMATOLOGICAL Hx Musculoskeletal Disorders: Yes Hx Falls: Yes Hx Fractures: Yes (Left foot, spinal) Hx Unsteady Gait: Yes - GASTROINTESTINAL Hx Diverticulitis: Yes Hx Gastroesophageal Reflux: Yes - GENITOURINARY/GYNECOLOGICAL Hx Urinary Tract Infection: Yes - PSYCHIATRIC Hx Substance Use: No - SURGICAL HISTORY Hx Surgeries: Yes - ANESTHESIA Hx Anesthesia Reactions: No Hx Malignant Hyperthermia: No Meds Allergies/Adverse Reactions: Allergies Allergy/AdvReac Type Severity Reaction Status Date / Time pineapple Allergy ANAPHYLAXIS Verified 09/27/16 21:27 - Medications Medications: Current Medications Acetaminophen (Tylenol 325mg Tab) 650 mg PO Q4 PRN PRN Reason: Fever >100.4 F Albuterol/Ipratropium (Duoneb 3 Mg/0.5 Mg (3 Ml) Ud) 3 ml IH [id number] PRN PRN Reason: Shortness of Breath Lactated Ringer's (Lactated Ringer's) 1,000 mls @ 120 mls/hr IV .Q8H20M ALEJANDRA Last Admin: 09/29/16 23:05 Dose: 120 mls/hr Morphine Sulfate (Morphine) 4 mg IVP Q4H PRN PRN Reason: Pain, severe (8-10) Last Admin: 09/30/16 02:46 Dose: 4 mg Morphine Sulfate (Morphine) 2 mg IVP Q4H PRN PRN Reason: Pain, moderate (4-7) Physical Exam - Head Exam Head Exam: ATRAUMATIC, NORMAL INSPECTION, NORMOCEPHALIC - Eye Exam Eye Exam: EOMI, Normal appearance, PERRL. absent: Nystagmus, Scleral icterus Pupil Exam: NORMAL ACCOMODATION - ENT Exam ENT Exam: Mucous Membranes Moist - Neck Exam Additional comments: supple - Respiratory Exam Respiratory Exam: Decreased Breath Sounds (basilar b.l), Clear to Auscultation Bilateral. absent: Rales, Rhonchi, Wheezes - Cardiovascular Exam Cardiovascular Exam: REGULAR RHYTHM, +S1, +S2 - GI/Abdominal Exam Additional comments: mid-line inicison site no draiange erythema LLQ (+) brown strike through suprapubic tenderness cannot be tested due to generalized pain in abdomen - Extremities Exam Extremities exam: Positive for: normal capillary refill, pedal pulses present. Negative for: calf tenderness, pedal edema - Back Exam Back exam: absent: CVA tenderness (L), CVA tenderness (R) - Psychiatric Exam Psychiatric exam: Normal Affect, Normal Mood - Skin Skin Exam: Dry, Warm Results - Vital Signs Recent Vital Signs: Last Vital Signs Temp 97.0 F L 09/30/16 06:20 Pulse 74 09/30/16 06:20 Resp 20 09/30/16 06:20 BP 127/75 09/30/16 06:20 Pulse Ox 95 09/30/16 06:20 - Labs Result Diagrams: 09/30/16 08:50 09/30/16 08:50 Labs: Laboratory Results - last 24 hr 09/29/16 09/29/16 09/29/16 23:45 23:45 23:45 WBC 12.9 H RBC 4.73 Hgb 14.7 D Hct 42.8 MCV 90.5 MCH 31.1 MCHC 34.3 RDW 13.7 Plt Count 329 MPV 10.1 PT 12.8 H INR 1.19 H APTT 27.6 pCO2 pO2 HCO3 ABG pH ABG Total CO2 ABG O2 Saturation ABG Base Excess ABG Potassium Glucose Lactate FiO2 Sodium 136 Potassium 4.1 Chloride 99 Carbon Dioxide 26 Anion Gap 15 BUN 16 Creatinine 0.6 Est GFR ( Amer) > 60 Est GFR (Non-Af Amer) > 60 POC Glucose (mg/dL) Random Glucose 98 Calcium 8.6 Total Bilirubin 0.7 AST 20 ALT 30 Alkaline Phosphatase 35 L Total Protein 6.2 Albumin 3.1 Globulin 3.1 Albumin/Globulin Ratio 1.0 L Lipase 158 Arterial Blood Potassium Urine Color Urine Appearance Urine pH Ur Specific [place] Urine Protein Urine Glucose (UA) Urine Ketones Urine Blood Urine Nitrate Urine Bilirubin Urine Urobilinogen Ur Leukocyte Esterase Urine RBC Urine WBC Ur Epithelial Cells Urine Bacteria Urine Other Blood Type Antibody Screen BBK History Checked 09/29/16 09/30/16 09/30/16 23:45 02:30 03:40 WBC RBC Hgb Hct MCV MCH MCHC RDW Plt Count MPV PT INR APTT pCO2 pO2 HCO3 ABG pH ABG Total CO2 ABG O2 Saturation ABG Base Excess ABG Potassium Glucose Lactate FiO2 Sodium Potassium Chloride Carbon Dioxide Anion Gap BUN Creatinine Est GFR ( Amer) Est GFR (Non-Af Amer) POC Glucose (mg/dL) 106 Random Glucose Calcium Total Bilirubin AST ALT Alkaline Phosphatase Total Protein Albumin Globulin Albumin/Globulin Ratio Lipase Arterial Blood Potassium Urine Color Dark yellow Urine Appearance Cloudy Urine pH 6.5 Ur Specific [place] 1.020 Urine Protein 30 H Urine Glucose (UA) Negative Urine Ketones Trace H Urine Blood Large H Urine Nitrate Positive H Urine Bilirubin Moderate H Urine Urobilinogen 2.0 H Ur Leukocyte Esterase Large H Urine RBC 2 - 5 Urine WBC 2 - 5 Ur Epithelial Cells 1 - 3 Urine Bacteria Few Urine Other Uyeast Blood Type A POSITIVE Antibody Screen Negative BBK History Checked Patient has bt 09/30/16 04:20 WBC RBC Hgb Hct MCV MCH MCHC RDW Plt Count MPV PT INR APTT pCO2 37 pO2 73.0 L HCO3 27.6 ABG pH 7.48 H ABG Total CO2 28.7 H ABG O2 Saturation 97.3 ABG Base Excess 4.0 H ABG Potassium 3.8 Glucose 110 H Lactate 1.2 FiO2 28.0 Sodium 136.0 Potassium Chloride 104.0 Carbon Dioxide Anion Gap BUN Creatinine Est GFR ( Amer) Est GFR (Non-Af Amer) POC Glucose (mg/dL) Random Glucose Calcium Total Bilirubin AST ALT Alkaline Phosphatase Total Protein Albumin Globulin Albumin/Globulin Ratio Lipase Arterial Blood Potassium 3.8 Urine Color Urine Appearance Urine pH Ur Specific [place] Urine Protein Urine Glucose (UA) Urine Ketones Urine Blood Urine Nitrate Urine Bilirubin Urine Urobilinogen Ur Leukocyte Esterase Urine RBC Urine WBC Ur Epithelial Cells Urine Bacteria Urine Other Blood Type Antibody Screen BBK History Checked Assessment & Plan - Assessment and Plan (Free Text) Plan: Staci Gillette (272.2) 89 y/o F status post [id number]-open appendectomy due to acute appendicitis. 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 Pt is undergoing repair of the enterocutaneous fistula today. 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 Machado - Date & Time Date: 09/30/16 Time: 09:39 <Antonio Machado S - Last Filed: 09/30/16 15:44> History of Present Illness - History of Present Illness History of Present Illness: Infectious Diseases Attending Physician Attestation Patient seen and examined prior to OR, discussed with medical records manager. I have reviewed the pertinent clinical information for this patient. I agree with the above findings, assessment and plan. In addition, we have started the patient on Zosyn for this patient with possible enterocutaneous fistula in this patient who recently underwent an appendectomy. Follow up OR findings. Will monitor clinically. Meds - Medications Medications: Current Medications Acetaminophen (Tylenol 325mg Tab) 650 mg PO Q4 PRN PRN Reason: Fever >100.4 F Albuterol/Ipratropium (Duoneb 3 Mg/0.5 Mg (3 Ml) Ud) 3 ml IH [id number] PRN PRN Reason: Shortness of Breath Lactated Ringer's (Lactated Ringer's) 1,000 mls @ 120 mls/hr IV .Q8H20M [facility] Last Admin: 09/29/16 23:05 Dose: 120 mls/hr Piperacillin Sod/Tazobactam Sod (Zosyn 3.375 In Ns 100ml) 100 mls @ 200 mls/hr IVPB Q6 ALEJANDRA PRN Reason: Protocol Stop: 10/07/16 10:23 Hydromorphone HCl (Dilaudid 0.2 Mg/Ml Game Agent) 25 mls @ 0 mls/hr IV .Q0M PRN PRN Reason: TITRATE PER MD ORDER Vancomycin HCl (Vancomycin 1gm) 1 gm in 250 mls @ 167 mls/hr IVPB DAILY ALEJANDRA PRN Reason: Protocol Levalbuterol HCl (Xopenex) 1.25 mg IH [id number] PRN PRN Reason: Shortness of Breath Last Admin: 09/30/16 13:24 Dose: 1.25 mg Metoclopramide HCl (Reglan) 10 mg IV ONCE PRN PRN Reason: Nausea/Vomiting Morphine Sulfate (Morphine) 4 mg IVP Q4H PRN PRN Reason: Pain, severe (8-10) Last Admin: 09/30/16 02:46 Dose: 4 mg Morphine Sulfate (Morphine) 2 mg IVP Q4H PRN PRN Reason: Pain, moderate (4-7) Pantoprazole Sodium (Protonix Inj) 40 mg IVP DAILY ALEJANDRA Results - Vital Signs Recent Vital Signs: Last Vital Signs Temp 99.9 F H 09/30/16 15:00 Pulse 106 H 09/30/16 15:00 Resp 16 09/30/16 15:00 BP 131/74 09/30/16 15:00 Pulse Ox 96 09/30/16 15:00 - Labs Result Diagrams: 09/30/16 08:50 09/30/16 08:50
--- NOTE | 2016-09-30 07:28 | CP.PCM.HP ---
<Barbara Conti - Last Filed: 09/30/16 12:29> History of Present Illness - History of Present Illness History of Present Illness: CC: abdominal pain Patient is an 89 y/o with pmh of COPD, CAD, Vertigo, chronic back pain, diverticulitis, new onset afib during this admission ( resolved) whom initially presented at [facility] with abdominal on the 4th, and was found to have acute appendicitis s/p lap converted to open appendectomy day#6. Post procedure patient was transferred to TCU for rehab, patient had a drain which was removed yesterday after it was noted to be draining feculent material in the AM. Last night patient c/o of abdominal pain at the site of the removed drain, upon accessing the site, it was noted to be soaked with feculent material. Patient was transferred to ED for inpatient readmission. 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 Patient was giving zosyn and flagyl in the ED, and readmitted to tele floor for further management. PMH: COPD, CAD, Vertigo, chronic back pain, diverticulitis, new onset afib during this admission PSH: Recent appendectomy Social: Denies alcohol, tobacco and illicit drug use. Present on Admission - Present on Admission Any Indicators Present on Admission: No History of DVT/PE: No History of Uncontrolled Diabetes: No Urinary Catheter: No Decubitus Ulcer Present: No Review of Systems - Review of Systems All systems: reviewed and no additional remarkable complaints except Review of Systems: 12 point ROS reviewed, all negative except as per HPI. Past Patient History - Infectious Disease Hx of Infectious Diseases: None - Tetanus Immunizations Tetanus Immunization: Unknown - Past Social History Smoking Status: Former Smoker Alcohol: None Drugs: Denies Home Situation {Lives}: With Family - CARDIAC Hx Cardiac Disorders: Yes Hx Cardia Arrhythmia: Yes (A-fib) - PULMONARY Hx Respiratory Disorders: Yes Hx Chronic Obstructive Pulmonary Disease (COPD): Yes Hx Pneumonia: Yes - NEUROLOGICAL Hx Dizziness: Yes (vertigo) - HEENT Hx Cataracts: Yes (Bilateral surgery) - RENAL Hx Chronic Kidney Disease: No - ENDOCRINE/METABOLIC Hx Endocrine Disorders: No - HEMATOLOGICAL/ONCOLOGICAL Hx Blood Transfusions: No Hx Blood Transfusion Reaction: No (NA) - INTEGUMENTARY Hx Dermatological Problems: Yes Other/Comment: rosacaea - MUSCULOSKELETAL/RHEUMATOLOGICAL Hx Musculoskeletal Disorders: Yes Hx Falls: Yes Hx Fractures: Yes (Left foot, spinal) Hx Unsteady Gait: Yes - GASTROINTESTINAL Hx Diverticulitis: Yes Hx Gastroesophageal Reflux: Yes - GENITOURINARY/GYNECOLOGICAL Hx Urinary Tract Infection: Yes - PSYCHIATRIC Hx Substance Use: No - SURGICAL HISTORY Hx Surgeries: Yes - ANESTHESIA Hx Anesthesia Reactions: No Hx Malignant Hyperthermia: No Meds Allergies/Adverse Reactions: Allergies Allergy/AdvReac Type Severity Reaction Status Date / Time pineapple Allergy ANAPHYLAXIS Verified 09/27/16 21:27 Physical Exam - Constitutional Appears: No Acute Distress, Chronically Ill - Head Exam Head Exam: ATRAUMATIC, NORMAL INSPECTION, NORMOCEPHALIC - Eye Exam Eye Exam: EOMI, Normal appearance, PERRL. absent: Scleral icterus (pale sclera) Pupil Exam: NORMAL ACCOMODATION, PERRL - ENT Exam ENT Exam: Mucous Membranes Moist - Neck Exam Neck exam: Positive for: Normal Inspection - Respiratory Exam Respiratory Exam: Decreased Breath Sounds (at the bases), NORMAL BREATHING PATTERN. absent: Rales, Rhonchi, Wheezes, Respiratory Distress, Stridor - Cardiovascular Exam Cardiovascular Exam: REGULAR RHYTHM, +S1, +S2. absent: Systolic Murmur - GI/Abdominal Exam GI & Abdominal Exam: Distended, Firm, Guarding, Hypoactive Bowel Sounds, Rigid, Tenderness (left lower quadrant) - Extremities Exam Extremities exam: Positive for: pedal edema (+3). Negative for: tenderness Additional comments: Midline abdominal corazon intact - Neurological Exam Neurological exam: Alert, Oriented x3 - Psychiatric Exam Psychiatric exam: Normal Affect, Normal Mood - Skin Skin Exam: Dry, Intact, Warm Results - Vital Signs Recent Vital Signs: Last Vital Signs Temp 97.0 F L 09/30/16 06:20 Pulse 74 09/30/16 06:20 Resp 20 09/30/16 06:20 BP 127/75 09/30/16 06:20 Pulse Ox 95 09/30/16 06:20 - Labs Result Diagrams: 09/30/16 08:50 09/30/16 08:50 Labs: Laboratory Results - last 24 hr 09/29/16 09/29/16 09/29/16 23:45 23:45 23:45 WBC 12.9 H RBC 4.73 Hgb 14.7 D Hct 42.8 MCV 90.5 MCH 31.1 MCHC 34.3 RDW 13.7 Plt Count 329 MPV 10.1 PT 12.8 H INR 1.19 H APTT 27.6 pCO2 pO2 HCO3 ABG pH ABG Total CO2 ABG O2 Saturation ABG Base Excess ABG Potassium Glucose Lactate FiO2 Sodium 136 Potassium 4.1 Chloride 99 Carbon Dioxide 26 Anion Gap 15 BUN 16 Creatinine 0.6 Est GFR ( Amer) > 60 Est GFR (Non-Af Amer) > 60 POC Glucose (mg/dL) Random Glucose 98 Calcium 8.6 Total Bilirubin 0.7 AST 20 ALT 30 Alkaline Phosphatase 35 L Total Protein 6.2 Albumin 3.1 Globulin 3.1 Albumin/Globulin Ratio 1.0 L Lipase 158 Arterial Blood Potassium Urine Color Urine Appearance Urine pH Ur Specific [place] Urine Protein Urine Glucose (UA) Urine Ketones Urine Blood Urine Nitrate Urine Bilirubin Urine Urobilinogen Ur Leukocyte Esterase Urine RBC Urine WBC Ur Epithelial Cells Urine Bacteria Urine Other Blood Type Antibody Screen BBK History Checked 09/29/16 09/30/16 09/30/16 23:45 02:30 03:40 WBC RBC Hgb Hct MCV MCH MCHC RDW Plt Count MPV PT INR APTT pCO2 pO2 HCO3 ABG pH ABG Total CO2 ABG O2 Saturation ABG Base Excess ABG Potassium Glucose Lactate FiO2 Sodium Potassium Chloride Carbon Dioxide Anion Gap BUN Creatinine Est GFR ( Amer) Est GFR (Non-Af Amer) POC Glucose (mg/dL) 106 Random Glucose Calcium Total Bilirubin AST ALT Alkaline Phosphatase Total Protein Albumin Globulin Albumin/Globulin Ratio Lipase Arterial Blood Potassium Urine Color Dark yellow Urine Appearance Cloudy Urine pH 6.5 Ur Specific [place] 1.020 Urine Protein 30 H Urine Glucose (UA) Negative Urine Ketones Trace H Urine Blood Large H Urine Nitrate Positive H Urine Bilirubin Moderate H Urine Urobilinogen 2.0 H Ur Leukocyte Esterase Large H Urine RBC 2 - 5 Urine WBC 2 - 5 Ur Epithelial Cells 1 - 3 Urine Bacteria Few Urine Other Uyeast Blood Type A POSITIVE Antibody Screen Negative BBK History Checked Patient has bt 09/30/16 04:20 WBC RBC Hgb Hct MCV MCH MCHC RDW Plt Count MPV PT INR APTT pCO2 37 pO2 73.0 L HCO3 27.6 ABG pH 7.48 H ABG Total CO2 28.7 H ABG O2 Saturation 97.3 ABG Base Excess 4.0 H ABG Potassium 3.8 Glucose 110 H Lactate 1.2 FiO2 28.0 Sodium 136.0 Potassium Chloride 104.0 Carbon Dioxide Anion Gap BUN Creatinine Est GFR ( Amer) Est GFR (Non-Af Amer) POC Glucose (mg/dL) Random Glucose Calcium Total Bilirubin AST ALT Alkaline Phosphatase Total Protein Albumin Globulin Albumin/Globulin Ratio Lipase Arterial Blood Potassium 3.8 Urine Color Urine Appearance Urine pH Ur Specific [place] Urine Protein Urine Glucose (UA) Urine Ketones Urine Blood Urine Nitrate Urine Bilirubin Urine Urobilinogen Ur Leukocyte Esterase Urine RBC Urine WBC Ur Epithelial Cells Urine Bacteria Urine Other Blood Type Antibody Screen BBK History Checked Assessment & Plan - Assessment and Plan (Free Text) Assessment: 1) Enterocutaeous fistula 2) Appendicitis s/p lap converted to open appendectomy 3) UTI 4) New onset Afib ( resolved) 5) CAD 6) COPD 7) chronic back pain Plan: Patient's NPO, going to OR today for repair of the enterocutaneous fistula by surgery. Leukocytosis worsened, afebrile, lactic acid 1.2, bush culture repeated, pending , on zosyn, ID following. On LR@ 120cc/hr, will continue duoneb prn for SOB, morphine prn for pain. Will hold BP meds. - Date & Time Date: 09/30/16 Time: 07:30 <Abhishek Mac S - Last Filed: 09/30/16 16:43> Results - Vital Signs Recent Vital Signs: Last Vital Signs Temp 99.9 F H 09/30/16 15:00 Pulse 106 H 09/30/16 15:00 Resp 16 09/30/16 15:00 BP 131/74 09/30/16 15:00 Pulse Ox 96 09/30/16 15:00 - Labs Result Diagrams: 09/30/16 08:50 09/30/16 08:50 Assessment & Plan - Assessment and Plan (Free Text) Plan: Pt seen and examined. Resident note reviewed and agree with. I evaluated the pt myself and discussed it with the resident. I spoke to Dr Baez and Dr Lyon. Pt will need surgery. Guarded prognosis. Spoke to Dr Mao (PMD).
--- NOTE | 2016-09-30 07:59 | RAD ---
HISTORY: abd pain COMPARISON: No prior. FINDINGS: BOWEL: No evidence of bowel obstruction. No abnormal bowel loops identified. No hepatic or splenic enlargement. Surgical corazon right lower abdomen/pelvis BONES: Normal. OTHER FINDINGS: None. IMPRESSION: No active disease.
--- NOTE | 2016-09-30 08:26 | RAD ---
HISTORY: abdominal pain COMPARISON: No prior. FINDINGS: LUNGS: There is an improving infiltrate at the right lung base PLEURA: No significant pleural effusion identified, no pneumothorax apparent. CARDIOVASCULAR: Moderate cardiomegaly OSSEOUS STRUCTURES: No significant abnormalities. VISUALIZED UPPER ABDOMEN: Normal. OTHER FINDINGS: None. IMPRESSION: Improving infiltrate at the right lung base
[2016-09-30 08:57] LABS: HEMOGLOBIN 14.4 g/dL (12.0-16.0); MEAN CELL VOLUME 91.6 fl (80.0-105.0); MEAN CORPUSCULAR HEMOGLOBIN 30.4 pg (25.0-35.0); MEAN CORPUSCULAR HGB CONC 33.2 g/dl (31.0-37.0); MEAN PLATELET VOLUME 10.1 fl (7.0-11.0); PLATELET COUNT 300 10^3/uL (120.0-450.0); RBC 4.74 10^6/uL (3.5-6.1); RED CELL DISTRIBUTION WIDTH 13.9 % (11.5-14.5); WHITE BLOOD COUNT 21.1 10^3/ul (4.5-11.0)
[2016-09-30 09:09] LABS: ALBUMIN 2.8 g/dL (3.0-4.8); ALT/SGPT 27 U/L (7-56); AST/SGOT 14 U/L (15-39); BLOOD UREA NITROGEN 18 mg/dL (7-21); CALCIUM 8.3 mg/dL (8.4-10.5); GFR AFRICAN-AMERICAN > 60; GFR NON-AFRICAN AMERICAN > 60
[2016-09-30 09:51] LABS: BAND 2 % (0-2); LYMPHOCYTE 4 % (22.0-35.0); MONOCYTE 2 % (1.0-6.0); NEUTROPHIL 92 % (50.0-70.0)
[2016-09-30 09:52] LABS: PLATELET ESTIMATE NORMAL (NORMAL)
[2016-09-30] MEDS ORDERED: Propofol 10 mg/ml Inj (20 ML) ONE (10:07)
[2016-09-30] MEDS ORDERED: Midazolam 2 MG/2 ML VIAL ONE (10:07)
[2016-09-30] MEDS ORDERED: Lidocaine 2% Inj (20ml) ONE (10:08)
[2016-09-30] MEDS ORDERED: Rocuronium 10 mg/ml (5 ml) ONE ×2 (10:09→11:54)
[2016-09-30] MEDS ORDERED: Bupivacaine 0.5% Inj(30mL) ONE (10:19)
[2016-09-30] MEDS ORDERED: Oxychlorosene Topical 2 gm Packet TOP ONE (10:20)
[2016-09-30] MEDS ORDERED: Sevoflurane - Inhalation Anesthetic Liq (250 ml) ONE (11:04)
[2016-09-30] MEDS ORDERED: Neostigmine Methylsulfate 3mg/3ml Syringe IV ONE (12:24)
[2016-09-30] MEDS ORDERED: Glycopyrrolate 0.2 mg/ml (2ml vial) ONE (12:25)
[2016-09-30] MEDS ORDERED: Liquid Adhesive TOP ONE (12:41)
[2016-09-30] MEDS ORDERED: Levalbuterol 1.25 MG/3 ML Inhal Soln UD ONE (13:13)
[2016-09-30] MEDS: HYDROmorphone 0.5 mg/0.5 ml ISec ONE ×2 (13:20→13:35)
[2016-09-30] MEDS ORDERED: Levalbuterol 1.25 MG/3 ML Inhal Soln UD IH PRN (13:21)
[2016-09-30] MEDS ORDERED: HYDROmorphone 0.5 mg/0.5 ml ISec IVP PRN (13:24)
[2016-09-30] MEDS ORDERED: Lactated Ringer's 1,000 ML IV SCH (13:24)
--- NOTE | 2016-09-30 13:29 | PCM.SURG1 ---
Surgeon's Initial Post Op Note - Surgeon's Notes Surgeon: Dr Baez Tea Taster: Dr Chau PGY3, Dr Levy PGY1 Type of Anesthesia: General Endo Pre-Operative Diagnosis: perforated viscus Operative Findings: perforated sigmoid colon. colovesicular fistula Post-Operative Diagnosis: as above Operation Performed: exploratory laparotomy. lysis of adhesions. modified Margaret's resection. abdominal washout Specimen/Specimens Removed: peritoneal fluid culture Estimated Blood Loss: EBL {In ML}: 25 Blood Products Given: N/A Drains Used: [place] (x 2) Post-Op Condition: Fair Date of Surgery/Procedure: 09/30/16 Time of Surgery/Procedure: 13:29
[2016-09-30] MEDS ORDERED: Acetaminophen IV IVPB ONE (13:30)
[2016-09-30] MEDS ORDERED: HYDROmorphone 0.5 mg/0.5 ml ISec ONE (13:34)
[2016-09-30] MEDS ORDERED: Metoprolol 1 mg/ml Inj IVP ONE ×2 (13:40→13:43)
[2016-09-30] MEDS ORDERED: Piperacillin/Tazobact 3.375 gm Inj IVPB ONE (13:59)
[2016-09-30] MEDS ORDERED: Vancomycin 1gm in NS 250ml 1 GM/250 ML BAG IVPB SCH (14:30)
--- NOTE | 2016-09-30 14:53 | RAD ---
HISTORY: fu ex lap COMPARISON: 09/29/2016 FINDINGS: LUNGS: No pulmonary infiltrate. Probable subsegmental atelectasis at the right base. PLEURA: Slight blunting of both costophrenic angles which may reflect small pleural effusions or chronic pleural thickening. CARDIOVASCULAR: Normal. OSSEOUS STRUCTURES: No significant abnormalities. VISUALIZED UPPER ABDOMEN: Normal. OTHER FINDINGS: None. IMPRESSION: Possible small bilateral pleural effusion. Right basilar linear atelectasis. Otherwise unremarkable.
--- NOTE | 2016-09-30 16:04 | CP.PCM.CON ---
<Galileo Bell - Last Filed: 09/30/16 16:15> History of Present Illness - History of Present Illness History of Present Illness: ICU Consult Note 89 F with PMHx of COPD, new onset a.fib (resolved), diverticulitics, hiatal hernia, and recent admission for appendicitis s/p open appendectomy 09/24/16. Pt was found to have feculent drainage from YANETH drain at which time the drain was removed and dressed which was then again saturated with feculent material. Pt was readmitted from the TCU and evaluated by the general surgical team. CT abdomen demonstrated a enterocutaneous fistula and pt was taken for an ex lap procedure. Pt was found to have perforated sigmoid colon with colovesicular fistula. Pt underwent a modified rodrigues's and abdominal washout. ICU was consulted for further management and close monitoring for possible further deterioration. Pt was seen and examined at bedside s/p ex lap POD#0. Pt has 2 YANETH drains, and an abdominal dressing that is CDI. Pt is AAOx3 and has no acute complaints at this time. Pt was noted to have a mild cough with SOB, and mild abdominal pain. Pt denied fever, chills, chest pains, n/v/d/c. Pt has nunez with feculent material draining. PMHx: COPD, Afib not on anticoagulation, CAD, DJD, vertigo, and diverticulitis PSHx: open appendectomy, ex lap, modified hartmans procedure SHx:denies tobacco, EtOH, drug use Med: See JORDEN Allergy:pineapple PMD: Dr. Sandoval Surgery Dr. Baez Review of Systems - Review of Systems Review of Systems: as per HPI otherwise negative Past Patient History - Infectious Disease Hx of Infectious Diseases: None - Tetanus Immunizations Tetanus Immunization: Unknown - Past Social History Smoking Status: Former Smoker - CARDIAC Hx Cardiac Disorders: Yes Hx Cardia Arrhythmia: Yes (A-fib) - PULMONARY Hx Respiratory Disorders: Yes Hx Chronic Obstructive Pulmonary Disease (COPD): Yes Hx Pneumonia: Yes - NEUROLOGICAL Hx Dizziness: Yes (vertigo) - HEENT Hx Cataracts: Yes (Bilateral surgery) - RENAL Hx Chronic Kidney Disease: No - ENDOCRINE/METABOLIC Hx Endocrine Disorders: No - HEMATOLOGICAL/ONCOLOGICAL Hx Blood Transfusions: No Hx Blood Transfusion Reaction: No (NA) - INTEGUMENTARY Hx Dermatological Problems: Yes Other/Comment: rosacaea - MUSCULOSKELETAL/RHEUMATOLOGICAL Hx Musculoskeletal Disorders: Yes Hx Falls: Yes Hx Fractures: Yes (Left foot, spinal) Hx Unsteady Gait: Yes - GASTROINTESTINAL Hx Diverticulitis: Yes Hx Gastroesophageal Reflux: Yes - GENITOURINARY/GYNECOLOGICAL Hx Urinary Tract Infection: Yes - PSYCHIATRIC Hx Substance Use: No - SURGICAL HISTORY Hx Surgeries: Yes - ANESTHESIA Hx Anesthesia Reactions: No Hx Malignant Hyperthermia: No Meds Allergies/Adverse Reactions: Allergies Allergy/AdvReac Type Severity Reaction Status Date / Time pineapple Allergy ANAPHYLAXIS Verified 09/27/16 21:27 - Medications Medications: Current Medications Acetaminophen (Tylenol 325mg Tab) 650 mg PO Q4 PRN PRN Reason: Fever >100.4 F Albuterol/Ipratropium (Duoneb 3 Mg/0.5 Mg (3 Ml) Ud) 3 ml IH [id number] PRN PRN Reason: Shortness of Breath Lactated Ringer's (Lactated Ringer's) 1,000 mls @ 120 mls/hr IV .Q8H20M ALEJANDRA Last Admin: 09/29/16 23:05 Dose: 120 mls/hr Piperacillin Sod/Tazobactam Sod (Zosyn 3.375 In Ns 100ml) 100 mls @ 200 mls/hr IVPB Q6 ALEJANDRA PRN Reason: Protocol Stop: 10/07/16 10:23 Hydromorphone HCl (Dilaudid 0.2 Mg/Ml Centrifugal Wax Molder) 25 mls @ 0 mls/hr IV .Q0M PRN PRN Reason: TITRATE PER MD ORDER Vancomycin HCl (Vancomycin 1gm) 1 gm in 250 mls @ 167 mls/hr IVPB DAILY ALEJANDRA PRN Reason: Protocol Levalbuterol HCl (Xopenex) 1.25 mg IH [id number] PRN PRN Reason: Shortness of Breath Last Admin: 09/30/16 13:24 Dose: 1.25 mg Metoclopramide HCl (Reglan) 10 mg IV ONCE PRN PRN Reason: Nausea/Vomiting Morphine Sulfate (Morphine) 4 mg IVP Q4H PRN PRN Reason: Pain, severe (8-10) Last Admin: 09/30/16 02:46 Dose: 4 mg Morphine Sulfate (Morphine) 2 mg IVP Q4H PRN PRN Reason: Pain, moderate (4-7) Pantoprazole Sodium (Protonix Inj) 40 mg IVP DAILY ALEJANDRA Physical Exam - Constitutional Appears: No Acute Distress - Head Exam Head Exam: ATRAUMATIC, NORMAL INSPECTION, NORMOCEPHALIC - Eye Exam Eye Exam: EOMI, Normal appearance, PERRL Pupil Exam: NORMAL ACCOMODATION, PERRL - ENT Exam ENT Exam: Mucous Membranes Moist, Normal Exam - Respiratory Exam Respiratory Exam: Clear to Auscultation Bilateral, NORMAL BREATHING PATTERN - Cardiovascular Exam Cardiovascular Exam: REGULAR RHYTHM, +S1, +S2 - GI/Abdominal Exam GI & Abdominal Exam: Normal Bowel Sounds, Soft, Tenderness Additional comments: 2 yaneth drain, dressing cdi - Extremities Exam Extremities exam: Positive for: pedal edema, pedal pulses present - Neurological Exam Neurological exam: Alert, CN II-XII Intact, Oriented x3, Reflexes Normal - Psychiatric Exam Psychiatric exam: Normal Affect, Normal Mood - Skin Skin Exam: Dry, Intact, Normal Color, Warm Results - Vital Signs Recent Vital Signs: Last Vital Signs Temp 99.9 F H 09/30/16 15:00 Pulse 106 H 09/30/16 15:00 Resp 16 09/30/16 15:00 BP 131/74 09/30/16 15:00 Pulse Ox 96 09/30/16 15:00 - Labs Result Diagrams: 09/30/16 08:50 09/30/16 08:50 Assessment & Plan - Assessment and Plan (Free Text) Assessment: 89 F with PMHx of COPD, new onset a.fib (resolved), diverticulitics, hiatal hernia, and recent admission for appendicitis s/p open appendectomy 09/24/16. CT abdomen demonstrated a enterocutaneous fistula and pt was taken for an ex lap procedure. Pt was found to have perforated sigmoid colon with colovesicular fistula. Pt underwent a modified rodrigues's and abdominal washout. ICU was consulted for further management and close monitoring for possible further deterioration. Neuro: stable aaox3 moving all extremities pain management, dilaudid maintain normothermia Pulm: stable 02 satting >90% on 3L HOB>30 aspiration precaution fu CXR pulm toileting duonebs, xopenex CVS: HD stable LR @120cc/hr continue to monitor GI: S/p ex lap with modified hartmans and abdominal washout 2 yaneth drains, General surgery following Dr Baez NPO GI ppx Renal: stable continue to monitor renal fcn nunez in place draining feculent material strict I&Os ID: sigmoid perforation, s/p abdominal washout Vanc zosyn as per ID, Dr. Machado low grade fever, leukocytosis, continue to monitor Endo: Maintain euglycemia 140-180 Seen reviewed and discussed with attending <Thien Plunkett - Last Filed: 09/30/16 17:01> Meds - Medications Medications: Current Medications Acetaminophen (Tylenol 325mg Tab) 650 mg PO Q4 PRN PRN Reason: Fever >100.4 F Albuterol/Ipratropium (Duoneb 3 Mg/0.5 Mg (3 Ml) Ud) 3 ml IH [id number] PRN PRN Reason: Shortness of Breath Enoxaparin Sodium (Lovenox) 30 mg SC Q12H [facility] PRN Reason: Protocol Lactated Ringer's (Lactated Ringer's) 1,000 mls @ 120 mls/hr IV .Q8H20M [facility] Last Admin: 09/29/16 23:05 Dose: 120 mls/hr Piperacillin Sod/Tazobactam Sod (Zosyn 3.375 In Ns 100ml) 100 mls @ 200 mls/hr IVPB Q6 [facility] PRN Reason: Protocol Stop: 10/07/16 10:23 Hydromorphone HCl (Dilaudid 0.2 Mg/Ml Centrifugal Wax Molder) 25 mls @ 0 mls/hr IV .Q0M PRN PRN Reason: TITRATE PER MD ORDER Vancomycin HCl (Vancomycin 1gm) 1 gm in 250 mls @ 167 mls/hr IVPB DAILY [facility] PRN Reason: Protocol Levalbuterol HCl (Xopenex) 1.25 mg IH [id number] PRN PRN Reason: Shortness of Breath Last Admin: 09/30/16 13:24 Dose: 1.25 mg Metoclopramide HCl (Reglan) 10 mg IV ONCE PRN PRN Reason: Nausea/Vomiting Pantoprazole Sodium (Protonix Inj) 40 mg IVP DAILY [facility] Results - Vital Signs Recent Vital Signs: Last Vital Signs Temp 99.9 F H 09/30/16 15:00 Pulse 106 H 09/30/16 15:00 Resp 16 09/30/16 15:00 BP 131/74 09/30/16 15:00 Pulse Ox 96 09/30/16 15:00 - Labs Result Diagrams: 09/30/16 16:30 09/30/16 08:50 Labs: Laboratory Results - last 24 hr 09/30/16 16:30 WBC 25.0 H RBC 4.81 Hgb 14.8 Hct 44.4 MCV 92.3 MCH 30.8 MCHC 33.3 RDW 14.0 Plt Count 302 MPV 10.2 Gran % 94.8 H Lymph % (Auto) 2.4 L [place] % (Auto) 2.6 Eos % (Auto) 0.0 L Baso % (Auto) 0.2 Gran # 23.75 H Lymph # 0.6 L [place] # 0.6 Eos # 0.0 Baso # 0.04 Assessment & Plan - Assessment and Plan (Free Text) Assessment: Patient seen and examined, agree with Dr Bell HPI, exam, assessment and plan, with following additions/exception: 89 F with PMHx of COPD, new onset a.fib which has resolved, diverticulitics, hiatal hernia, and recent admission for appendicitis s/p open appendectomy . CT abdomen demonstrated a enterocutaneous fistula and pt was taken for an ex lap procedure. Pt was found to have perforated sigmoid colon with colovesicular fistula. Pt underwent a modified rodrigues's and abdominal washout. ICU was consulted for further management and close monitoring for possible further deterioration. - currently afebrile, HD stable, comfortable on 2LNC Recommend: - pain control - HOB>30 - aspiration precaution - duonebs, xopenex - IVF, LR @100cc/hr - S/p ex lap with modified hartmans and abdominal washout - 2 yaneth drains, General surgery following Dr Baez - NPO - DC nunez - Vanc zosyn as per ID, Dr. Machado - low grade fever, leukocytosis, continue to monitor - check procalcitonin - GI ppx - DVT ppx - Full Code
[2016-09-30 16:44] LABS: BASO # 0.04 K/mm3 (0.0-2.0); BASO % 0.2 % (0.0-3.0); GRAN # 23.75 (1.4-6.5); GRAN % 94.8 % (50.0-68.0); HEMOGLOBIN 14.8 g/dL (12.0-16.0); LYMPH # 0.6 (1.2-3.4); LYMPH % 2.4 % (22.0-35.0); MEAN CELL VOLUME 92.3 fl (80.0-105.0); MEAN CORPUSCULAR HEMOGLOBIN 30.8 pg (25.0-35.0); MEAN CORPUSCULAR HGB CONC 33.3 g/dl (31.0-37.0); MEAN PLATELET VOLUME 10.2 fl (7.0-11.0); MONO # 0.6 (0.1-0.6); MONO % 2.6 % (1.0-6.0); PLATELET COUNT 302 10^3/uL (120.0-450.0); RBC 4.81 10^6/uL (3.5-6.1)
[2016-09-30 16:49] LABS: ALB/GLOB RATIO 0.9 (1.1-1.8); ALBUMIN 2.5 g/dL (3.0-4.8); ALT/SGPT 20 U/L (7-56); AST/SGOT 16 U/L (15-39); BLOOD UREA NITROGEN 20 mg/dL (7-21); CALCIUM 7.7 mg/dL (8.4-10.5); GFR AFRICAN-AMERICAN > 60; GFR NON-AFRICAN AMERICAN 52
[2016-09-30] MEDS: Piperacillin/Tazobact 3.375 gm 100 ML IVPB SCH ×2 (17:10→19:00)
[2016-09-30] MEDS: Lactated Ringer's 1,000 ML IV SCH (17:15)
[2016-10-01] MEDS ORDERED: Enoxaparin 30 mg Syringe SC SCH ×2 (00:01→10:00)
[2016-10-01] MEDS: Piperacillin/Tazobact 3.375 gm 100 ML IVPB SCH ×5 (00:20→23:45)
--- NOTE | 2016-10-01 01:11 | CARD ---
APPROVED REPORT EKG Measurement Heart [id number] <Conclusion> Normal sinus rhythm Left axis deviation Anterolateral infarct, age undetermined Abnormal ECG
[2016-10-01] MEDS ORDERED: Lactated Ringer's 1,000 ML IV SCH (01:35)
[2016-10-01] MEDS ORDERED: Albuterol 0.083% Inhal Sol (2.5 mg/3 mL) UD INH STA (01:37)
[2016-10-01] MEDS: HYDROmorphone 0.2 mg/ml (25ml) 25 ML IV PRN ×2 (02:10→18:37)
[2016-10-01] MEDS: Albuterol-Ipratrop 3 mg / 0.5 (3 ml) UD IH PRN (02:10)
[2016-10-01] MEDS: Lactated Ringer's 1,000 ML IV SCH ×2 (03:11→14:06)
--- NOTE | 2016-10-01 03:58 | OP ---
PREOPERATIVE DIAGNOSIS: Feculent drainage from the drain tract. POSTOPERATIVE DIAGNOSIS: Perforated diverticulitis with a colonic-vesical fistula and perforation in the pelvis. SURGEON: Milo Baez MD MILLER HELPER DISTILLERY: Dr. Chau. DRAINS: Two; one large on the left side, one smaller one on the right. FINDINGS: The patient had an open appendectomy about a week ago. The drain was removed yesterday and feculent drainage came with it. CAT scan showed a fistula and a lot of inflammation, thick walled colon. DESCRIPTION OF PROCEDURE: In the operating room, the patient was identified by name, name of procedure, laterality, my sridevi, the consent and the wrist band. A Thomas was placed and feculent material was removed. The midline incision was opened and extended inferiorly and superiorly for access. It was though free peritonitis or infection, but there was lot of fibrin in the abdomen. There was no feculent material this had drained through the tract very nicely. The cecum was examined and that was unremarkable, status post appendectomy. The liver was unremarkable. The descending colon was very thick, distended, edematous, going down into the pelvis. It was difficult to say where the mass was initially because it was deep in the pelvis. A perforation was found deep in the pelvis at the level of an apparent colonic-vesical fistula. Things were frozen which probably we have avoided it initially on the first operation. Discussed with RIANNA Ruiz . The colon was divided. Initially, the ALEX was attempted; however, it was too thick for the ALEX. The TA 90 malfunctioned and this was taken with 2 large clamps and Whip stitch closed both on the proximal and distal end. There was a perforation which required re-stitching. Both ends were aspirated. When this was complete and adequate, I feel that was impossible to adequately and safely dissect distally and a transverse colostomy was fashioned. It was circumscribed, from the omentum and relatively separate stay up above the both the incision. It was eventually matured using a bridge and Vicryl. The abdomen was examined, irrigated, dried very nicely. It was irrigated with Clorpactin and dried. The abdomen was cleaned and examined, 2 drains were placed. The larger one on the left side into the pelvis and the smaller one down towards the pelvis on the right side. It was closed with retention stitches approximately 8 of them in a far-near and near-far suture. These were tied and the abdomen examined one more time, the omentum was placed as much as possible into the pelvis. There was nothing else untoward. Simultaneously, the stitches were drawn tight and tied serially under the aforementioned tension. Skin was closed with corazon. Light dressing was applied. The patient was taken to the recovery room in good condition after the sponge and needle counts were clear and correct. Plan to take her to the ICU. Milo Baez MD
--- NOTE | 2016-10-01 06:30 | CP.PCM.PN ---
<Carrie Patterson - Last Filed: 10/01/16 11:45> Subjective - Date & Time of Evaluation Date of Evaluation: 10/01/16 Time of Evaluation: 06:29 - Subjective Subjective: PGY-[address] Machado low grade fever 99.9 yesterday pain control by police clerk 2 sae drains - serosanq nunez - fecalent matter, oliguric Objective - Vital Signs/Intake and Output Vital Signs (last 24 hours): Temp Pulse Resp BP Pulse Ox 98.7 F 84 21 131/76 95 10/01/16 04:00 10/01/16 04:00 10/01/16 04:00 10/01/16 04:00 10/01/16 04:00 Intake and Output: 09/30/16 10/01/16 18:59 06:59 Intake Total 300 Output Total 70 Balance 300 -70 - Medications Medications: Current Medications Acetaminophen (Tylenol 325mg Tab) 650 mg PO Q4 PRN PRN Reason: Fever >100.4 F Albuterol/Ipratropium (Duoneb 3 Mg/0.5 Mg (3 Ml) Ud) 3 ml IH [id number] PRN PRN Reason: Shortness of Breath Last Admin: 10/01/16 02:10 Dose: 3 ml Enoxaparin Sodium (Lovenox) 30 mg SC Q12H ALEJANDRA PRN Reason: Protocol Piperacillin Sod/Tazobactam Sod (Zosyn 3.375 In Ns 100ml) 100 mls @ 200 mls/hr IVPB Q6 ALEJANDRA PRN Reason: Protocol Stop: 10/07/16 10:23 Last Admin: 09/30/16 19:00 Dose: 200 mls/hr Hydromorphone HCl (Dilaudid 0.2 Mg/Ml [employer] Electric[employer]) 25 mls @ 0 mls/hr IV .Q0M PRN PRN Reason: TITRATE PER MD ORDER Last Admin: 10/01/16 02:10 Dose: 0.2 mls/hr Lactated Ringer's (Lactated Ringer's) 1,000 mls @ 100 mls/hr IV .Q10H ALEJANDRA Last Admin: 10/01/16 03:11 Dose: 100 mls/hr Fluconazole (Diflucan Iv 400mg/200ml Ns) 200 mls @ 100 mls/hr IVPB DAILY ALEJANDRA PRN Reason: Protocol Levalbuterol HCl (Xopenex) 1.25 mg IH [id number] PRN PRN Reason: Shortness of Breath Last Admin: 09/30/16 13:24 Dose: 1.25 mg Metoclopramide HCl (Reglan) 10 mg IV ONCE PRN PRN Reason: Nausea/Vomiting Pantoprazole Sodium (Protonix Inj) 40 mg IVP DAILY ALEJANDRA Last Admin: 09/30/16 15:55 Dose: 40 mg - Labs Labs: 09/30/16 16:30 09/30/16 16:30 PT 12.8 Seconds (9.9-11.8) H 09/29/16 23:45 INR 1.19 (0.93-1.08) H 09/29/16 23:45 APTT 27.6 Seconds (23.7-30.8) 09/29/16 23:45 - Constitutional Appears: No Acute Distress - Head Exam Head Exam: ATRAUMATIC, NORMAL INSPECTION, NORMOCEPHALIC - Eye Exam Eye Exam: EOMI, Normal appearance, PERRL. absent: Scleral icterus Pupil Exam: NORMAL ACCOMODATION - ENT Exam ENT Exam: Mucous Membranes Moist - Neck Exam Additional comments: supple - Respiratory Exam Respiratory Exam: Decreased Breath Sounds (lung bases), Clear to Ausculation Bilateral. absent: Rales, Rhonchi, Wheezes - Cardiovascular Exam Cardiovascular Exam: REGULAR RHYTHM, +S1, +S2 - GI/Abdominal Exam GI & Abdominal Exam: Soft, Tenderness (diffuse), Hypoactive Bowel Sounds Additional comments: 2 sae drains, serosang nunez, min urine, feculant dressing just change, d/c/i ostomy intact - Extremities Exam Extremities Exam: Normal Capillary Refill. absent: Calf Tenderness, Pedal Edema - Neurological Exam Neurological Exam: Alert, Awake - Psychiatric Exam Psychiatric exam: Normal Affect, Normal Mood - Skin Skin Exam: Dry, Warm Assessment and Plan - Assessment and Plan (Free Text) Plan: Staci Gillette (272.2) 89 y/o F status post [id number]-open appendectomy due to acute appendicitis. - Sepsis due to intraabdominal infection related to organ perforation - Perforated sigmoid colon with colovesicular fistula s/p exploratory laparotomy , with lysis of adhesions, modified Margaret's resection, and abdominal washout (09/30/16, POD #1) - status post [id number]-open appendectomy due to acute appendicitis (09/24/16, POD 7) Plan - Continue zosyn (day 2) s/p Vanco x 1 - Add fluconazle 400mg qd for yeast in abdominal washout - continue monitor 2 sae drains, i/o, vitals, and clinical course - Continue to follow up on cultures and clinical course. Cultures Blood Culture (09/29) No growth x 1 day peritoneal fluid Culture (09/30) Yeast, pending s/r/d w Dr. Machado <Antonio Machado S - Last Filed: 10/01/16 19:38> Objective - Vital Signs/Intake and Output Vital Signs (last 24 hours): Temp Pulse Resp BP Pulse Ox 98.7 F 77 19 146/58 L 96 10/01/16 04:00 10/01/16 17:30 10/01/16 17:30 10/01/16 17:30 10/01/16 17:30 Intake and Output: 10/01/16 10/02/16 18:59 06:59 Intake Total 2110 Output Total 490 Balance 1620 - Medications Medications: Current Medications Acetaminophen (Tylenol 325mg Tab) 650 mg PO Q4 PRN PRN Reason: Fever >100.4 F Albuterol/Ipratropium (Duoneb 3 Mg/0.5 Mg (3 Ml) Ud) 3 ml IH [id number] PRN PRN Reason: Shortness of Breath Last Admin: 10/01/16 02:10 Dose: 3 ml Enoxaparin Sodium (Lovenox) 40 mg SC DAILY ALEJANDRA PRN Reason: Protocol Last Admin: 10/01/16 09:51 Dose: 40 mg Piperacillin Sod/Tazobactam Sod (Zosyn 3.375 In Ns 100ml) 100 mls @ 200 mls/hr IVPB Q6 ALEJANDRA PRN Reason: Protocol Stop: 10/07/16 10:23 Last Admin: 10/01/16 18:03 Dose: Not Given Hydromorphone HCl (Dilaudid 0.2 Mg/Ml Diesel Electrician) 25 mls @ 0 mls/hr IV .Q0M PRN PRN Reason: TITRATE PER MD ORDER Last Admin: 10/01/16 18:37 Dose: 0.2 mls/hr Fluconazole (Diflucan Iv 400mg/200ml Ns) 200 mls @ 100 mls/hr IVPB DAILY ALEJANDRA PRN Reason: Protocol Last Admin: 10/01/16 09:51 Dose: 100 mls/hr Vancomycin HCl (Vancomycin 1gm) 1 gm in 250 mls @ 167 mls/hr IVPB Q12H ALEJANDRA PRN Reason: Protocol Last Admin: 10/01/16 19:14 Dose: 167 mls/hr Piperacillin Sod/Tazobactam Sod (Zosyn 3.375 In Ns 100ml) 100 mls @ 200 mls/hr IV Q6 ALEJANDRA PRN Reason: Protocol Last Admin: 10/01/16 18:02 Dose: 200 mls/hr Lactated Ringer's (Lactated Ringer's) 1,000 mls @ 50 mls/hr IV .Q20H ALEJANDRA Last Admin: 10/01/16 14:06 Dose: 50 mls/hr Levalbuterol HCl (Xopenex) 1.25 mg IH [id number] PRN PRN Reason: Shortness of Breath Last Admin: 09/30/16 13:24 Dose: 1.25 mg Metoclopramide HCl (Reglan) 10 mg IV ONCE PRN PRN Reason: Nausea/Vomiting Pantoprazole Sodium (Protonix Inj) 40 mg IVP DAILY [facility] Last Admin: 10/01/16 09:50 Dose: 40 mg - Labs Labs: 10/01/16 06:30 10/01/16 06:30 PT 12.8 Seconds (9.9-11.8) H 09/29/16 23:45 INR 1.19 (0.93-1.08) H 09/29/16 23:45 APTT 27.6 Seconds (23.7-30.8) 09/29/16 23:45 Assessment and Plan - Assessment and Plan (Free Text) Plan: Infectious Diseases Attending Physician Attestation Patient seen and examined, discussed with medical billing clerk. I have reviewed the pertinent clinical information for this patient. I agree with the above findings , assessment and plan. In addition, we will continue Zosyn and added Diflucan for this patient with colovesicular fistula with bowel perforation S/P ex-lap, modified Margaret's procedure POD #1. Follow up final OR cx results. Will follow up identification of the yeast found in the OR cx.
[2016-10-01 07:15] LABS: ALB/GLOB RATIO 0.9 (1.1-1.8); ALBUMIN 2.3 g/dL (3.0-4.8); CALCIUM 7.6 mg/dL (8.4-10.5); HEMOGLOBIN 13.2 g/dL (12.0-16.0); MEAN CELL VOLUME 92.7 fl (80.0-105.0); MEAN CORPUSCULAR HEMOGLOBIN 30.1 pg (25.0-35.0); MEAN CORPUSCULAR HGB CONC 32.5 g/dl (31.0-37.0); MEAN PLATELET VOLUME 10.5 fl (7.0-11.0); PLATELET COUNT 285 10^3/uL (120.0-450.0); RBC 4.38 10^6/uL (3.5-6.1); RED CELL DISTRIBUTION WIDTH 14.1 % (11.5-14.5); WHITE BLOOD COUNT 24.3 10^3/ul (4.5-11.0)
--- NOTE | 2016-10-01 07:21 | CP.PCM.PN ---
<Barbara Conti - Last Filed: 10/01/16 08:59> Subjective - Date & Time of Evaluation Date of Evaluation: 10/01/16 Time of Evaluation: 07:20 - Subjective Subjective: Progress note for Dr Mac service Patient is s/p appendectomy POD#7, complicated with perforated viscus POD#1. Patient is currently in ICU post operatively. No overnight acute events. 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 Patient report chronic sob, denies chest pain. Patient admits to soreness in the abdomen, and acid reflux. Patient denies chills, fever, nausea or vomiting. No flatus. Saturating at 92-96% on 3 litters nasal cannula. Objective - Vital Signs/Intake and Output Vital Signs (last 24 hours): Temp Pulse Resp BP Pulse Ox 98.7 F 84 21 131/76 95 10/01/16 04:00 10/01/16 04:00 10/01/16 04:00 10/01/16 04:00 10/01/16 04:00 Intake and Output: 10/01/16 10/01/16 06:59 18:59 Output Total 70 Balance -70 - Medications Medications: Current Medications Acetaminophen (Tylenol 325mg Tab) 650 mg PO Q4 PRN PRN Reason: Fever >100.4 F Albuterol/Ipratropium (Duoneb 3 Mg/0.5 Mg (3 Ml) Ud) 3 ml IH [id number] PRN PRN Reason: Shortness of Breath Last Admin: 10/01/16 02:10 Dose: 3 ml Enoxaparin Sodium (Lovenox) 30 mg SC Q12H ALEJANDRA PRN Reason: Protocol Piperacillin Sod/Tazobactam Sod (Zosyn 3.375 In Ns 100ml) 100 mls @ 200 mls/hr IVPB Q6 ALEJANDRA PRN Reason: Protocol Stop: 10/07/16 10:23 Last Admin: 09/30/16 19:00 Dose: 200 mls/hr Hydromorphone HCl (Dilaudid 0.2 Mg/Ml Cook Roast) 25 mls @ 0 mls/hr IV .Q0M PRN PRN Reason: TITRATE PER MD ORDER Last Admin: 10/01/16 02:10 Dose: 0.2 mls/hr Lactated Ringer's (Lactated Ringer's) 1,000 mls @ 100 mls/hr IV .Q10H ALEJANDRA Last Admin: 10/01/16 03:11 Dose: 100 mls/hr Fluconazole (Diflucan Iv 400mg/200ml Ns) 200 mls @ 100 mls/hr IVPB DAILY ALEJANDRA PRN Reason: Protocol Levalbuterol HCl (Xopenex) 1.25 mg IH [id number] PRN PRN Reason: Shortness of Breath Last Admin: 09/30/16 13:24 Dose: 1.25 mg Metoclopramide HCl (Reglan) 10 mg IV ONCE PRN PRN Reason: Nausea/Vomiting Pantoprazole Sodium (Protonix Inj) 40 mg IVP DAILY [facility] Last Admin: 09/30/16 15:55 Dose: 40 mg - Labs Labs: 10/01/16 06:30 10/01/16 06:30 PT 12.8 Seconds (9.9-11.8) H 09/29/16 23:45 INR 1.19 (0.93-1.08) H 09/29/16 23:45 APTT 27.6 Seconds (23.7-30.8) 09/29/16 23:45 - Constitutional Appears: No Acute Distress, Chronically Ill - Head Exam Head Exam: ATRAUMATIC, NORMAL INSPECTION, NORMOCEPHALIC - Eye Exam Eye Exam: EOMI, Normal appearance, PERRL - ENT Exam ENT Exam: Mucous Membranes Moist - Neck Exam Neck Exam: Normal Inspection. absent: Lymphadenopathy - Respiratory Exam Respiratory Exam: Decreased Breath Sounds (at the bases), NORMAL BREATHING PATTERN. absent: Rales, Rhonchi, Wheezes, Respiratory Distress, Stridor Additional comments: Nasal cannula - Cardiovascular Exam Cardiovascular Exam: REGULAR RHYTHM, +S1, +S2. absent: Bradycardia, Tachycardia , Murmur - GI/Abdominal Exam GI & Abdominal Exam: Distended, Firm, Tenderness, Hypoactive Bowel Sounds Additional comments: Ostomy bag in place, no stool, [address] draining serosanguinous fluid. Thomas catheter in place, fecal material mixed with urine inside. Clean dressing over the incisions. - Extremities Exam Extremities Exam: Pedal Edema - Neurological Exam Neurological Exam: Alert, Awake, Oriented x3 Additional comments: + Gross lower and upper extremities movement. 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 Continue post op care as per Surgery. Leukocytosis's stable, repeat bcx with no growth after 24 hrs, wound culture pending. Patient is on zosyn, vanco and diflucan was added. ID following. Incentive spirometry, pain control ( patient has Dilaudid blender laborer pump), head of bed elevated above 30 degrees. On nasal cannula, keep O2 sat above 90%. HOB elevation above 30 degrees to prevent aspiration. Will continue with bronchodilator. Patient is currently hemodynanamically stable, will keep MAP above 65. EUGENIA is likely prerenal versus intrinsic- patient has Thomas thus is less likely postrenal, will obtain FENA, will continue IV hydration, monitor I&Os. Lovenox for dvt prophylaxis, protonix for gi prophylaxis. Reglan prn for nausea /vomiting. Patient seen, and examined, case discussed with Dr Mac. <Abhishek Mac S - Last Filed: 10/02/16 09:18> Objective - Vital Signs/Intake and Output Vital Signs (last 24 hours): Temp Pulse Resp BP Pulse Ox 98.2 F 86 23 150/58 L 93 L 10/02/16 06:00 10/02/16 06:00 10/02/16 06:00 10/02/16 06:00 10/02/16 06:00 Intake and Output: 10/02/16 10/02/16 06:59 18:59 Intake Total 1115 Output Total 1085 Balance 30 - Medications Medications: Current Medications Acetaminophen (Tylenol 325mg Tab) 650 mg PO Q4 PRN PRN Reason: Fever >100.4 F Albuterol/Ipratropium (Duoneb 3 Mg/0.5 Mg (3 Ml) Ud) 3 ml IH [id number] PRN PRN Reason: Shortness of Breath Last Admin: 10/01/16 02:10 Dose: 3 ml Enoxaparin Sodium (Lovenox) 40 mg SC DAILY ALEJANDRA PRN Reason: Protocol Last Admin: 10/01/16 09:51 Dose: 40 mg Piperacillin Sod/Tazobactam Sod (Zosyn 3.375 In Ns 100ml) 100 mls @ 200 mls/hr IVPB Q6 ALEJANDRA PRN Reason: Protocol Stop: 10/07/16 10:23 Last Admin: 10/02/16 06:01 Dose: 200 mls/hr Hydromorphone HCl (Dilaudid 0.2 Mg/Ml Cook Roast) 25 mls @ 0 mls/hr IV .Q0M PRN PRN Reason: TITRATE PER MD ORDER Last Admin: 10/01/16 18:37 Dose: 0.2 mls/hr Fluconazole (Diflucan Iv 400mg/200ml Ns) 200 mls @ 100 mls/hr IVPB DAILY ALEJANDRA PRN Reason: Protocol Last Admin: 10/01/16 09:51 Dose: 100 mls/hr Vancomycin HCl (Vancomycin 1gm) 1 gm in 250 mls @ 167 mls/hr IVPB Q12H ALEJANDRA PRN Reason: Protocol Last Admin: 10/01/16 19:14 Dose: 167 mls/hr Levalbuterol HCl (Xopenex) 1.25 mg IH [id number] PRN PRN Reason: Shortness of Breath Last Admin: 09/30/16 13:24 Dose: 1.25 mg Metoclopramide HCl (Reglan) 10 mg IV ONCE PRN PRN Reason: Nausea/Vomiting Pantoprazole Sodium (Protonix Inj) 40 mg IVP DAILY [facility] Last Admin: 10/01/16 09:50 Dose: 40 mg - Labs Labs: 10/02/16 05:00 10/02/16 05:00 PT 12.8 Seconds (9.9-11.8) H 09/29/16 23:45 INR 1.19 (0.93-1.08) H 09/29/16 23:45 APTT 27.6 Seconds (23.7-30.8) 09/29/16 23:45 Assessment and Plan - Assessment and Plan (Free Text) Plan: Pt was seen and examined by me. I reviewed the note and plan of care with the resident. I agree with the note and plan of care. I spoke to Leonila (daughter) yesterday. Hesham (son) will be the point person for any conversations regarding this pt.
[2016-10-01 09:10] LABS: ATYPICAL LYMPHOCYTE 1 % (0.0-0.0); BAND 3 % (0-2); LYMPHOCYTE 6 % (22.0-35.0); MONOCYTE 3 % (1.0-6.0); NEUTROPHIL 87 % (50.0-70.0)
--- NOTE | 2016-10-01 09:18 | PQF GENQUE ---
This form is a permanent part of the medical record Dr. Patterson, Patient presented with perforated diverticulum and fistula post-op previous surgery. Day procedure with colostomy done when patient returned to OR, abdominal washout done. PN done by you for ID and surgery notes sepsis due to intra-abdominal infection , low grade fever, elevated wbc. Could you clarify if peritonitis was present or ruled out based on this documentation? 10/[address] Patterson. Undetermined at this time. Will document if determination of peritonitis made. Clarification of your documentation is requested to better reflect the severity of illness and intensity of treatment of your patient. Indicators present [] Specify: [] [] Specify: [] [] Specify: [] [] Specify: [] Location in the medical record that reflects the above clinical findings: [] Treatment Provided: [] PHYSICIAN'S RESPONSE Based on your medical judgment of the clinical indicators outlined above please clarify the following: [] Practitioner response [] If unable to determine, please check the box, sign and date. Present On Admission (POA) Indicator: [] Present at the time of admission [] Not present at the time of admission [] Clinically Undetermined In responding to this query, please exercise your independent professional judgment. The fact that a question is asked does not imply that any particular answer is desired or expected. Thank you for your clarification on this documentation. If you have any questions please call:[ ] * Thank you, [ ]Tasneem Ren [facility] #[id number] frame maker ANNABEL
[2016-10-01] MEDS: Enoxaparin 40 mg Syringe SC SCH (09:51)
[2016-10-01] MEDS: Fluconazole IV 400mg/200ml NS 200 ML IVPB SCH (09:51)
[2016-10-01] MEDS: Vancomycin 1gm in NS 250ml 1 GM/250 ML BAG IVPB SCH ×2 (10:04→19:14)
--- NOTE | 2016-10-01 12:47 | CP.CCUPN ---
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 Post op. AAO x 3. Pain controlled but uncomfortable at times. Started on diet per surgery. CCU Objective - Vital Signs / Intake & Output Vital Signs (Last 4 hours): Vital Signs Pulse Resp BP Pulse Ox 10/01/16 11:30 115 H 17 148/58 L 91 L 10/01/16 11:00 77 17 134/76 94 L 10/01/16 10:30 79 18 139/63 94 L 10/01/16 10:00 82 18 144/67 96 10/01/16 09:30 78 19 154/98 H 93 L 10/01/16 09:00 80 16 125/56 L 95 Intake and Output (Last 8hrs): Intake & Output 09/30/16 10/01/16 10/01/16 22:59 06:59 14:59 Output Total 70 Balance -70 Weight 180 lb Output: Drainage 70 Left Abdomen 40 Right Abdomen 30 Other: Voiding Method Indwelling Catheter Indwelling Catheter - Physical Exam Head: Positive for: Atraumatic, Normocephalic Pupils: Positive for: PERRL Extroacular Muscles: Positive for: EOMI Mouth: Positive for: Moist Mucous Membranes Neck: Positive for: Normal Range of Motion Respiratory/Chest: Positive for: Good Air Exchange, Accessory Muscle Use Cardiovascular: Positive for: Regular Rate and Rhythm Abdomen: Positive for: Tenderness (Tenderned to palpation to left lower abdomen) , Distention, Ostomy Tubes. Negative for: Rebound, Guarding Upper Extremity: Positive for: Normal Inspection Lower Extremity: Positive for: Normal Inspection Neurological: Positive for: GCS=15, Speech Normal Skin: Positive for: Warm Psychiatric: Positive for: Alert, Oriented x 3, Normal Insight, Normal Concentration - Medications Active Medications: Active Medications Generic Name Dose Route Start Last Admin Trade Name Freq PRN Reason Stop Dose Admin Acetaminophen 650 mg 09/29/16 20:15 Tylenol 325mg Tab PO Q4 PRN Fever >100.4 F Albuterol/Ipratropium 3 ml 09/30/16 03:02 10/01/16 02:10 Duoneb 3 Mg/0.5 Mg (3 Ml) Ud IH 3 ml [id number] PRN Administration Shortness of Breath Enoxaparin Sodium 40 mg 10/01/16 10:00 10/01/16 09:51 Lovenox SC 40 mg DAILY ALEJANDRA Administration Protocol Piperacillin Sod/Tazobactam Sod 100 mls @ 200 mls/hr 09/30/16 10:22 10/01/16 07:43 Zosyn 3.375 In Ns 100ml IVPB 10/07/16 10:23 200 mls/hr Q6 ALEJANDRA Administration Protocol Hydromorphone HCl 25 mls @ 0 mls/hr 09/30/16 13:20 10/01/16 02:10 Dilaudid 0.2 Mg/Ml Etl Programmer IV 0.2 mls/hr .Q0M PRN Administration TITRATE PER MD ORDER Lactated Ringer's 1,000 mls @ 100 mls/hr 09/30/16 17:13 10/01/16 03:11 Lactated Ringer's IV 100 mls/hr .Q10H ALEJANDRA Administration Fluconazole 200 mls @ 100 mls/hr 10/01/16 10:00 10/01/16 09:51 Diflucan Iv 400mg/200ml Ns IVPB 100 mls/hr DAILY ALEJANDRA Administration Protocol Vancomycin HCl 1 gm in 250 mls @ 167 mls/hr 10/01/16 07:30 10/01/16 10:04 Vancomycin 1gm IVPB 167 mls/hr Q12H ALEJANDRA Administration Protocol Piperacillin Sod/Tazobactam Sod 100 mls @ 200 mls/hr 10/01/16 12:00 Zosyn 3.375 In Ns 100ml IV Q6 ALEJANDRA Protocol Levalbuterol HCl 1.25 mg 09/30/16 13:21 09/30/16 13:24 Xopenex IH 1.25 mg [id number] PRN Administration Shortness of Breath Metoclopramide HCl 10 mg 09/30/16 13:24 Reglan IV ONCE PRN Nausea/Vomiting Pantoprazole Sodium 40 mg 09/30/16 13:00 10/01/16 09:50 Protonix Inj IVP 40 mg DAILY ALEJANDRA Administration - Patient Studies Lab Studies: Microbiology Studies 09/30/16 14:20 Gram Stain - Final Other: Please Indicate Lab Studies 10/01/16 10/01/16 10/01/16 Range/Units 06:30 06:30 06:30 WBC 24.3 H (4.5-11.0) 10^3/ul RBC 4.38 (3.5-6.1) 10^6/uL Hgb 13.2 (12.0-16.0) g/dL Hct 40.6 (36.0-48.0) % MCV 92.7 (80.0-105.0) fl MCH 30.1 (25.0-35.0) pg MCHC 32.5 (31.0-37.0) g/dl RDW 14.1 (11.5-14.5) % Plt Count 285 (120.0-450.0) 10^3/uL MPV 10.5 (7.0-11.0) fl Gran % (50.0-68.0) % Lymph % (Auto) (22.0-35.0) % Hodgeman % (Auto) (1.0-6.0) % Eos % (Auto) (1.5-5.0) % Baso % (Auto) (0.0-3.0) % Gran # (1.4-6.5) Lymph # (1.2-3.4) Hodgeman # (0.1-0.6) Eos # (0.0-0.7) Baso # (0.0-2.0) K/mm3 Neutrophils % (Manual) 87 H (50.0-70.0) % Band Neutrophils % 3 H (0-2) % Lymphocytes % (Manual) 6 L (22.0-35.0) % Atypical Lymphs % 1 H (0.0-0.0) % Monocytes % (Manual) 3 (1.0-6.0) % Sodium 138 (132-148) mmol/L Potassium 4.7 (3.6-5.0) mmol/L Chloride 102 (98-107) mmol/L Carbon Dioxide 26 (21-33) mmol/L Anion Gap 15 (10-20) BUN 23 H (7-21) mg/dL Creatinine 1.1 (0.5-1.4) mg/dL Est GFR ( Amer) 57 Est GFR (Non-Af Amer) 47 Random Glucose 122 H (70-110) mg/dL Calcium 7.6 L (8.4-10.5) mg/dL Phosphorus 4.8 H (2.5-4.5) mg/dL Magnesium 2.0 (1.7-2.2) mg/dL Total Bilirubin 0.5 (0.2-1.3) mg/dL AST 21 (15-39) U/L ALT 21 (7-56) U/L Alkaline Phosphatase 32 L (38-133) U/L Total Protein 5.0 L (5.8-8.3) g/dL Albumin 2.3 L (3.0-4.8) g/dL Globulin 2.6 gm/dL Albumin/Globulin Ratio 0.9 L (1.1-1.8) 09/30/16 09/30/16 Range/Units 16:30 16:30 WBC 25.0 H (4.5-11.0) 10^3/ul RBC 4.81 (3.5-6.1) 10^6/uL Hgb 14.8 (12.0-16.0) g/dL Hct 44.4 (36.0-48.0) % MCV 92.3 (80.0-105.0) fl MCH 30.8 (25.0-35.0) pg MCHC 33.3 (31.0-37.0) g/dl RDW 14.0 (11.5-14.5) % Plt Count 302 (120.0-450.0) 10^3/uL MPV 10.2 (7.0-11.0) fl Gran % 94.8 H (50.0-68.0) % Lymph % (Auto) 2.4 L (22.0-35.0) % Hodgeman % (Auto) 2.6 (1.0-6.0) % Eos % (Auto) 0.0 L (1.5-5.0) % Baso % (Auto) 0.2 (0.0-3.0) % Gran # 23.75 H (1.4-6.5) Lymph # 0.6 L (1.2-3.4) Hodgeman # 0.6 (0.1-0.6) Eos # 0.0 (0.0-0.7) Baso # 0.04 (0.0-2.0) K/mm3 Neutrophils % (Manual) (50.0-70.0) % Band Neutrophils % (0-2) % Lymphocytes % (Manual) (22.0-35.0) % Atypical Lymphs % (0.0-0.0) % Monocytes % (Manual) (1.0-6.0) % Sodium 137 (132-148) mmol/L Potassium 4.3 (3.6-5.0) mmol/L Chloride 101 (98-107) mmol/L Carbon Dioxide 26 (21-33) mmol/L Anion Gap 14 (10-20) BUN 20 (7-21) mg/dL Creatinine 1.0 (0.5-1.4) mg/dL Est GFR ( Amer) > 60 Est GFR (Non-Af Amer) 52 Random Glucose 108 (70-110) mg/dL Calcium 7.7 L (8.4-10.5) mg/dL Phosphorus (2.5-4.5) mg/dL Magnesium (1.7-2.2) mg/dL Total Bilirubin 0.7 (0.2-1.3) mg/dL AST 16 (15-39) U/L ALT 20 (7-56) U/L Alkaline Phosphatase 28 L (38-133) U/L Total Protein 5.3 L (5.8-8.3) g/dL Albumin 2.5 L (3.0-4.8) g/dL Globulin 2.8 gm/dL Albumin/Globulin Ratio 0.9 L (1.1-1.8) Laboratory Results - last 24 hr 09/30/16 09/30/16 10/01/16 16:30 16:30 06:30 WBC 25.0 H 24.3 H RBC 4.81 4.38 Hgb 14.8 13.2 Hct 44.4 40.6 MCV 92.3 92.7 MCH 30.8 30.1 MCHC 33.3 32.5 RDW 14.0 14.1 Plt Count 302 285 MPV 10.2 10.5 Gran % 94.8 H Lymph % (Auto) 2.4 L Hodgeman % (Auto) 2.6 Eos % (Auto) 0.0 L Baso % (Auto) 0.2 Gran # 23.75 H Lymph # 0.6 L Hodgeman # 0.6 Eos # 0.0 Baso # 0.04 Neutrophils % (Manual) 87 H Band Neutrophils % 3 H Lymphocytes % (Manual) 6 L Atypical Lymphs % 1 H Monocytes % (Manual) 3 Sodium 137 Potassium 4.3 Chloride 101 Carbon Dioxide 26 Anion Gap 14 BUN 20 Creatinine 1.0 Est GFR ( Amer) > 60 Est GFR (Non-Af Amer) 52 Random Glucose 108 Calcium 7.7 L Phosphorus Magnesium Total Bilirubin 0.7 AST 16 ALT 20 Alkaline Phosphatase 28 L Total Protein 5.3 L Albumin 2.5 L Globulin 2.8 Albumin/Globulin Ratio 0.9 L 10/01/16 10/01/16 06:30 06:30 WBC RBC Hgb Hct MCV MCH MCHC RDW Plt Count MPV Gran % Lymph % (Auto) Hodgeman % (Auto) Eos % (Auto) Baso % (Auto) Gran # Lymph # Hodgeman # Eos # Baso # Neutrophils % (Manual) Band Neutrophils % Lymphocytes % (Manual) Atypical Lymphs % Monocytes % (Manual) Sodium 138 Potassium 4.7 Chloride 102 Carbon Dioxide 26 Anion Gap 15 BUN 23 H Creatinine 1.1 Est GFR ( Amer) 57 Est GFR (Non-Af Amer) 47 Random Glucose 122 H Calcium 7.6 L Phosphorus 4.8 H Magnesium 2.0 Total Bilirubin 0.5 AST 21 ALT 21 Alkaline Phosphatase 32 L Total Protein 5.0 L Albumin 2.3 L Globulin 2.6 Albumin/Globulin Ratio 0.9 L Review of Systems - EENT Eyes: UNREMARKABLE Nose/Mouth/Throat: UNREMARKABLE - Breasts Breasts: UNREMARKABLE - Cardiovascular Cardiovascular: UNREMARKABLE - Respiratory Respiratory: UNREMARKABLE - Gastrointestinal Gastrointestinal: UNREMARKABLE - Genitourinary Genitourinary: UNREMARKABLE Critical Care Progress Note - Ventilator Checklist DVT Prophylaxis: Yes Oral Care with Chlorhexidine Gluconate {CHG}: Yes - Nutrition Nutrition: Nutrition Category Date Time Status Liquid Diet [DIET] Diets 10/01/16 Breakfast Ordered Assessment/Plan - Assessment and Plan (Free Text) Assessment: 89 y/o F s/p Ex-Lap for multiple surgical complications post Appendectomy . Extubated, aao x 3 and comfortable on RESET MERCHANDISER Peritonitis w/ elevated WBC noted and on broad spectrum abx . CX pending. [address] and Ostomy. Thomas in Bladder w/ fecal urine drainage? Bladder repair needed? Electrolytes to be replaced. Diet advanced per surgery PT/OT Surgery post op wound care. dvt p ppi cc time 45 min
--- NOTE | 2016-10-01 12:51 | CP.PCM.PN ---
Subjective - Date & Time of Evaluation Date of Evaluation: 10/01/16 Time of Evaluation: 12:49 - Subjective Subjective: Gen Sx: Dr Baez Pt S/E at bedside. Pt is ICU day 1, POD #1, s/p ex lap with modified Hartmanns procedure for perforated sigmoid diverticulitis. No events overnight. The pt complains of dry mouth, some abdominal pain, and epigastric burning pain consistent with heartburn. Pt feels that abdominal pain is well-controlled with SHOEBLACK. She denies dyspnea, n/v. O: Neuro: -AAOx3. EOMI. Responding to questions and commands appropriately. Moves extremities spontaneously and across midline. GCS: 15. -SHOEBLACK hydromorphone 0.2/mL @25 for pain. CV: -HR 76, BP 128/63, MAP 85. RRR. DP pulses 2+ equal bilaterally. No cyanosis or clubbing. No skin tenting -HD stable -1L LR@100 cc/hr Pulm: -RR 23, 94% NC at 3L -No respiratory distress. No stridor or accessory m. use. Renal: -Nunez catheter in place. Output 400 mL overnight. Bag at gravity contains 175cc feculent fluid. -UA yesterday significant for urine protein, nitrates, LE, WBCs, yeast. Consistent with rectovesicular fistula. - I/O: 300/245 GI/nutrition: -Absent bowel sounds. Mild diffuse tenderness to palpation. No rigidity or guarding. -Loop transverse colostomy site with bag in place. Normal stool in bag. -Midline incision with retention sutures and corazon dry and intact. Feculent material from proximal two sutures. Remaining sutures without drainage. Bandages examined and without purulent or malodorous drainage. No mass or fluctuance palpated over midline incision. -Bilateral ADWOA drains intact and draining serosanguinous fluid. Drain sites c/d/ I bilaterally. Bilateral Delvis Regalado drains with ~ 30 and 40cc serosanguinous drainage from R and L sides bilaterally. -Small amount of stool per rectum noted overnight. Endocrine: -Glucose: 122, Ca: 7.6, Hematologic: -Hb 13.2, Hct 40.6, Plt 285, WBC 24.3 -SCDs in place. No pretibial edema bilaterally. Immunologic/ID: -Leukocytosis at 24.3. -UA significant for protein, leukocytes, RBCs, yeast, leukocyte esterase. -CT abdomen/pelvis from 09/30 significant for enterocutaneous fistula. -Zosyn 3.375/100 mL @200/hr, Vancomycin 1g/250 mL @167/hr -Tylenol 650 mg q4h prn for fever Skin and MSK: -Skin warm, dry, intact. Normal skin turgor. No rash on exam. Surgical incision and drain sites as noted above. Rehab: -Social work and OT consulted. A/P: 89F s/p ex lap with modified Hartmanns procedure ICU day #1, POD #1. 1. Abdominal pain, s/p ex lap and modified Hartmanns procedure -Colostomy site cleaned and examined. Dressing and bag replaced. -Midline incision. Sutures flushed with saline and peroxide. Bandages replaced. -Pts pain well-controlled. Continue SHOEBLACK hydromorphone. -Continue PTX, anti-emetics prn for n/v -Advance to liquid diet -Consult wound care 2. Leukocytosis -CBC/CMP, blood cultures, UA as per ID -Continue Zosyn, Vanc, Fluconazole as per ID -Continue to follow ID recs. -Tylenol prn for fever 3. Enterocutaneous and rectovesciular fistulae -Continue Nunez catheter for at least 2 weeks per Urology -pt will need cystoscopy in the future -Continue to follow urology recs. -OK to flush nunez catheter PRN if clogged 4. COPD -Duoneb and albuterol prn for dyspnea 5. Prophylaxis -VTE: LVX 40 SC daily, SCDs -GI: PTX -Aspiration precautions -Activity: OOB as tolerated Disposition: Stable, clear for transfer to med/surg will d/w Dr Nestor Chau, PGY3 Objective - Vital Signs/Intake and Output Vital Signs (last 24 hours): Temp Pulse Resp BP Pulse Ox 98.7 F 115 H 17 148/58 L 91 L 10/01/16 04:00 10/01/16 11:30 10/01/16 11:30 10/01/16 11:30 10/01/16 11:30 Intake and Output: 10/01/16 10/01/16 06:59 18:59 Output Total 70 Balance -70 - Medications Medications: Current Medications Acetaminophen (Tylenol 325mg Tab) 650 mg PO Q4 PRN PRN Reason: Fever >100.4 F Albuterol/Ipratropium (Duoneb 3 Mg/0.5 Mg (3 Ml) Ud) 3 ml IH [id number] PRN PRN Reason: Shortness of Breath Last Admin: 10/01/16 02:10 Dose: 3 ml Enoxaparin Sodium (Lovenox) 40 mg SC DAILY ALEJANDRA PRN Reason: Protocol Last Admin: 10/01/16 09:51 Dose: 40 mg Piperacillin Sod/Tazobactam Sod (Zosyn 3.375 In Ns 100ml) 100 mls @ 200 mls/hr IVPB Q6 ALEJANDRA PRN Reason: Protocol Stop: 10/07/16 10:23 Last Admin: 10/01/16 07:43 Dose: 200 mls/hr Hydromorphone HCl (Dilaudid 0.2 Mg/Ml Rfp Writer) 25 mls @ 0 mls/hr IV .Q0M PRN PRN Reason: TITRATE PER MD ORDER Last Admin: 10/01/16 02:10 Dose: 0.2 mls/hr Lactated Ringer's (Lactated Ringer's) 1,000 mls @ 100 mls/hr IV .Q10H ALEJANDRA Last Admin: 10/01/16 03:11 Dose: 100 mls/hr Fluconazole (Diflucan Iv 400mg/200ml Ns) 200 mls @ 100 mls/hr IVPB DAILY ALEJANDRA PRN Reason: Protocol Last Admin: 10/01/16 09:51 Dose: 100 mls/hr Vancomycin HCl (Vancomycin 1gm) 1 gm in 250 mls @ 167 mls/hr IVPB Q12H ALEJANDRA PRN Reason: Protocol Last Admin: 10/01/16 10:04 Dose: 167 mls/hr Piperacillin Sod/Tazobactam Sod (Zosyn 3.375 In Ns 100ml) 100 mls @ 200 mls/hr IV Q6 ALEJANDRA PRN Reason: Protocol Levalbuterol HCl (Xopenex) 1.25 mg IH [id number] PRN PRN Reason: Shortness of Breath Last Admin: 09/30/16 13:24 Dose: 1.25 mg Metoclopramide HCl (Reglan) 10 mg IV ONCE PRN PRN Reason: Nausea/Vomiting Pantoprazole Sodium (Protonix Inj) 40 mg IVP DAILY [facility] Last Admin: 10/01/16 09:50 Dose: 40 mg - Labs Labs: 10/01/16 06:30 10/01/16 06:30 PT 12.8 Seconds (9.9-11.8) H 09/29/16 23:45 INR 1.19 (0.93-1.08) H 09/29/16 23:45 APTT 27.6 Seconds (23.7-30.8) 09/29/16 23:45
[2016-10-01] MEDS: Piperacillin/Tazobact 3.375 gm 100 ML IV SCH ×2 (14:12→18:02)
--- NOTE | 2016-10-01 18:56 | CON ---
DATE: 09/30/2016 CHIEF COMPLAINT: Abdominal pain. HISTORY OF PRESENT ILLNESS: This is an 89-year-old female who is seen in the PACU at [facility]. The patient originally had an appendectomy the week prior. She had some drains placed as there was a gross fecal soilage noted. The patient returned to the OR today with general surgery as she was noted to have fecal material coming out from the drain sites. The drains were removed and there was fecal material noted coming from the drain sites. The patient also was complaining of abdominal pain. In the operating room today, the patient was noted to have a perforated diverticulitis, again there was gross fecal soilage in the abdomen and there was fecal material noted coming out from the patient's Thomas catheter. After speaking with general surgery, the plan was to attempt to remove the perforated loop of sigmoid colon, however, there was marked inflammation and the patient was becoming unstable in the operating room and a diverting colostomy was performed with placement of large drains and antibiotic irrigation of the abdominal cavity. Consultation was then requested regarding colovesical fistula management. The patient is currently awake and answering questions. She is complaining of abdominal pain from the surgical sites. PAST MEDICAL HISTORY: Significant for COPD, coronary artery disease, vertigo, chronic back pain, diverticulitis, new onset atrial fibrillation. MEDICATIONS: Currently include Zosyn, Zofran, Xopenex, vancomycin, Robinul, Tylenol, morphine, Lovenox, and IV fluids. ALLERGIES: NO KNOWN DRUG ALLERGIES. FAMILY HISTORY: Noncontributory. SOCIAL HISTORY: The patient denies any smoking or EtOH use. REVIEW OF SYSTEMS: Currently positive for abdominal pain, feculent material in the urine, fever. Denies any chills. Rest of the review of systems is obtained from the chart and they were all negative other than the ones noted in the history of present illness. PHYSICAL EXAMINATION: GENERAL: The patient is in mild pain postoperatively. She is somewhat sedated from the recent anesthesia and pain medicine. VITAL SIGNS: She is currently afebrile with a temperature of 99.9, pulse of 120, blood pressure 169/88, and respirations 16. NECK: Supple. There is no noted adenopathy. CHEST: She is somewhat tachypneic, but breathing does not appear labored. CARDIAC: Positive S1 and S2. Slightly tachycardic. ABDOMEN: Abdomen is currently soft. There is moderate diffuse tenderness. There are multiple drains noted exiting from the abdomen and there is a new colostomy. : There is a Thomas catheter in place which is draining feculent material. EXTREMITIES: There is no cyanosis. There is mild peripheral edema noted. LABORATORY DATA: Urinalysis showed large blood, positive nitrites. Blood cultures showed no growth after 24 hours. There is no noted urine culture. 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 The patient just had a diverting colostomy performed and is completely in the postoperative period. Urologically, the plan would be to continue the Thomas catheter, this should be irrigated as needed. The patient should be continued on broad-spectrum antibiotics. Now that the fecal stream has been diverted, the urine will hopefully clear with antibiotics and irrigation of the Thomas. When the patient has recovered and is brought back to the operating room in a few weeks to hopefully remove the diseased portion of the sigmoid colon. I would be available to remove the portion of the bladder involved with the fistula and close the bladder primarily. I have discussed this with general surgery. The patient is 89 years old in a failed health and condition is currently guarded at this point, but hopefully she will respond well to the colostomy and antibiotics, and this problem can then be fixed in the future when the inflammation and infection have resolved. Thank you for allowing me to participate in care of this patient. I will follow her with you. Capo Pettit MD
[2016-10-02 02:47] LABS: PH,URINE 6.5 (4.7-8.0); URINE BILIRUBIN MODERATE (NEGATIVE); URINE BLOOD LARGE (NEGATIVE); URINE GLUCOSE (UA) NEGATIVE (NEGATIVE); URINE LEUKOCYTE ESTERASE MODERATE Leu/uL (NEGATIVE); URINE NITRATE POSITIVE (NEGATIVE); URINE PROTEIN 100 mg/dL (<30 mg/dL)
[2016-10-02 02:50] LABS: URINE APPEARANCE TURBID (CLEAR); URINE COLOR BROWN (YELLOW)
[2016-10-02 03:00] LABS: URINE BACTERIA LARGE (NEG); URINE EPITHELIAL CELLS 0 - 2 /hpf (0-5)
[2016-10-02 05:51] LABS: HEMOGLOBIN 12.4 g/dL (12.0-16.0); MEAN CELL VOLUME 92.6 fl (80.0-105.0); MEAN CORPUSCULAR HEMOGLOBIN 30.5 pg (25.0-35.0); MEAN CORPUSCULAR HGB CONC 32.9 g/dl (31.0-37.0); PLATELET COUNT 274 10^3/uL (120.0-450.0); RBC 4.07 10^6/uL (3.5-6.1); RED CELL DISTRIBUTION WIDTH 14.2 % (11.5-14.5)
[2016-10-02 05:52] LABS: ALB/GLOB RATIO 0.8 (1.1-1.8); ALBUMIN 2.2 g/dL (3.0-4.8); ALT/SGPT 25 U/L (7-56); AST/SGOT 27 U/L (15-39); BLOOD UREA NITROGEN 21 mg/dL (7-21); CALCIUM 7.5 mg/dL (8.4-10.5); GFR AFRICAN-AMERICAN > 60; GFR NON-AFRICAN AMERICAN 52
[2016-10-02] MEDS: Piperacillin/Tazobact 3.375 gm 100 ML IVPB SCH ×3 (06:01→17:29)
[2016-10-02] MEDS: Lactated Ringer's 1,000 ML IV SCH (06:34)
--- NOTE | 2016-10-02 07:00 | CON ---
DATE: 10/01/2016 HISTORY OF PRESENT ILLNESS: The patient is an 89-year-old female who presented with acute ruptured diverticulitis with a colovesical fistula. We were initially called when Dr. Milo Baez was operating on her from the operating room, where he indicated there was an attachment of the colon to the bladder with an obvious hole since she had fecaluria. There was also gross contamination of the abdomen. Our advice was to just exteriorize the colon, do not remove the colon that is attached to bladder this time, but rather create mucous fistula, and subsequently, we can go back at the next operation when the inflammation has subsided and remove a smaller portion of the bladder, when the colon that is attached is removed and also sutures would hold when the tissue is not edematous and make the operation easier. She is now in the ICU. Her urine is still feculent, but this is remnant of the isolated loop of colon that is attached to the bladder and eventually with time this should clear. She is now completely diverted. PAST MEDICAL HISTORY: Reveals she has a history of diverticulitis. She has new-onset AFib, COPD, and CAD. PAST SURGICAL HISTORY: Includes recent appendectomy. SOCIAL HISTORY: She does not smoke or drink. REVIEW OF SYMPTOMS: She is postop and is weak. She appears well oriented. She has no obvious respiratory or cardiac distress. Abdominal pain from her surgery. Skin, no purpura. PHYSICAL EXAMINATION: VITAL SIGNS: Shows her to have a pulse of 115, respirations are 17, blood pressure 148/58. GENERAL: Well oriented x3, though she appears weak and fatigued. The urine is feculent. ABDOMEN: Covered with dressings and the colostomy. SKIN: No visible purpura. LABORATORY WORK: Shows white count of 24,000, hemoglobin 13.2. Her creatinine is 1.1 with a BUN of 23. Coags: INR 1.19. I discussed with the patient and her son who was at the bedside the plan to subsequently do second operation whenever Dr. Milo Baez feels it is warranted to do a partial cystectomy at that time and hopefully the operation will be much easier with the inflammation subsided since the colon is bypassed. Ruben Vides MD
--- NOTE | 2016-10-02 07:28 | CP.PCM.PN ---
Subjective - Date & Time of Evaluation Date of Evaluation: 10/02/16 Time of Evaluation: 07:10 - Subjective Subjective: General Surgery- Dr. Baez Pt S&E at bedside this AM. No acute events overnight. Pt states abdominal pain, which is manageable on ENVIRONMENTAL SERVICES TECH. Midline dressing C/D/I. Stoma pink and patent with good output. Thomas in place, urine is matias, non-feculant. Denies N/V CP/SOB Objective - Vital Signs/Intake and Output Vital Signs (last 24 hours): Temp Pulse Resp BP Pulse Ox 98.2 F 86 23 150/58 L 93 L 10/02/16 06:00 10/02/16 06:00 10/02/16 06:00 10/02/16 06:00 10/02/16 06:00 Intake and Output: 10/02/16 10/02/16 06:59 18:59 Intake Total 1115 Output Total 1085 Balance 30 - Medications Medications: Current Medications Acetaminophen (Tylenol 325mg Tab) 650 mg PO Q4 PRN PRN Reason: Fever >100.4 F Albuterol/Ipratropium (Duoneb 3 Mg/0.5 Mg (3 Ml) Ud) 3 ml IH [id number] PRN PRN Reason: Shortness of Breath Last Admin: 10/01/16 02:10 Dose: 3 ml Enoxaparin Sodium (Lovenox) 40 mg SC DAILY ALEJANDRA PRN Reason: Protocol Last Admin: 10/01/16 09:51 Dose: 40 mg Piperacillin Sod/Tazobactam Sod (Zosyn 3.375 In Ns 100ml) 100 mls @ 200 mls/hr IVPB Q6 ALEJANDRA PRN Reason: Protocol Stop: 10/07/16 10:23 Last Admin: 10/02/16 06:01 Dose: 200 mls/hr Hydromorphone HCl (Dilaudid 0.2 Mg/Ml Lead Burner Supervisor) 25 mls @ 0 mls/hr IV .Q0M PRN PRN Reason: TITRATE PER MD ORDER Last Admin: 10/01/16 18:37 Dose: 0.2 mls/hr Fluconazole (Diflucan Iv 400mg/200ml Ns) 200 mls @ 100 mls/hr IVPB DAILY ALEJANDRA PRN Reason: Protocol Last Admin: 10/01/16 09:51 Dose: 100 mls/hr Vancomycin HCl (Vancomycin 1gm) 1 gm in 250 mls @ 167 mls/hr IVPB Q12H ALEJANDRA PRN Reason: Protocol Last Admin: 10/01/16 19:14 Dose: 167 mls/hr Piperacillin Sod/Tazobactam Sod (Zosyn 3.375 In Ns 100ml) 100 mls @ 200 mls/hr IV Q6 ALEJANDRA PRN Reason: Protocol Last Admin: 10/01/16 18:02 Dose: 200 mls/hr Lactated Ringer's (Lactated Ringer's) 1,000 mls @ 50 mls/hr IV .Q20H ALEJANDRA Last Admin: 10/02/16 06:34 Dose: 50 mls/hr Levalbuterol HCl (Xopenex) 1.25 mg IH [id number] PRN PRN Reason: Shortness of Breath Last Admin: 09/30/16 13:24 Dose: 1.25 mg Metoclopramide HCl (Reglan) 10 mg IV ONCE PRN PRN Reason: Nausea/Vomiting Pantoprazole Sodium (Protonix Inj) 40 mg IVP DAILY [facility] Last Admin: 10/01/16 09:50 Dose: 40 mg - Labs Labs: 10/02/16 05:00 10/02/16 05:00 PT 12.8 Seconds (9.9-11.8) H 09/29/16 23:45 INR 1.19 (0.93-1.08) H 09/29/16 23:45 APTT 27.6 Seconds (23.7-30.8) 09/29/16 23:45 - Constitutional Appears: No Acute Distress - Eye Exam Eye Exam: EOMI - Respiratory Exam Respiratory Exam: NORMAL BREATHING PATTERN. absent: Accessory Muscle Use, Rhonchi, Wheezes - Cardiovascular Exam Cardiovascular Exam: +S1, +S2 - GI/Abdominal Exam GI & Abdominal Exam: Soft. absent: Distended, Firm, Guarding, Rigid, Hernia Additional comments: appropriately tender to palpation around incision site - Neurological Exam Neurological Exam: Awake, Oriented x3 - Psychiatric Exam Psychiatric exam: Normal Affect - Skin Skin Exam: Intact, Warm Assessment and Plan - Assessment and Plan (Free Text) Assessment: 89F s/p exlap with modified Margaret's POD 2; s/p open appendectomy POD 12 Plan: - monitor ostomy and urine output - keep dressing C/D/I - Pain control - Advance to full liquid diet - GI/DVTppx - further recs per Dr. Nestor Pak PGY1
[2016-10-02 08:22] LABS: BAND 5 % (0-2); LYMPHOCYTE 4 % (22.0-35.0); MONOCYTE 1 % (1.0-6.0); NEUTROPHIL 86 % (50.0-70.0)
[2016-10-02 08:23] LABS: METAMYELOCYTE 2 %; MYELOCYTE 2 %
[2016-10-02 08:24] LABS: PLATELET ESTIMATE NORMAL (NORMAL)
[2016-10-02] MEDS: Vancomycin 1gm in NS 250ml 1 GM/250 ML BAG IVPB SCH ×2 (08:30→20:57)
[2016-10-02] MEDS: Enoxaparin 40 mg Syringe SC SCH (09:43)
[2016-10-02] MEDS: Fluconazole IV 400mg/200ml NS 200 ML IVPB SCH (09:52)
--- NOTE | 2016-10-02 10:44 | CP.PCM.PN ---
Subjective - Date & Time of Evaluation Date of Evaluation: 10/02/16 Time of Evaluation: 10:10 - Subjective Subjective: Patient is still having on-and-off abdominal pain, controlled with pain meds. Urine output has decreased today through the Thomas Catheter. No fevers noted overnight. No nausea or vomiting. Objective - Vital Signs/Intake and Output Vital Signs (last 24 hours): Temp Pulse Resp BP Pulse Ox 98.2 F 86 23 150/58 L 93 L 10/02/16 06:00 10/02/16 06:00 10/02/16 06:00 10/02/16 06:00 10/02/16 06:00 Intake and Output: 10/02/16 10/02/16 06:59 18:59 Intake Total 1115 Output Total 1085 Balance 30 - Medications Medications: Current Medications Acetaminophen (Tylenol 325mg Tab) 650 mg PO Q4 PRN PRN Reason: Fever >100.4 F Albuterol/Ipratropium (Duoneb 3 Mg/0.5 Mg (3 Ml) Ud) 3 ml IH [id number] PRN PRN Reason: Shortness of Breath Last Admin: 10/01/16 02:10 Dose: 3 ml Enoxaparin Sodium (Lovenox) 40 mg SC DAILY ALEJANDRA PRN Reason: Protocol Last Admin: 10/01/16 09:51 Dose: 40 mg Piperacillin Sod/Tazobactam Sod (Zosyn 3.375 In Ns 100ml) 100 mls @ 200 mls/hr IVPB Q6 ALEJANDRA PRN Reason: Protocol Stop: 10/07/16 10:23 Last Admin: 10/02/16 06:01 Dose: 200 mls/hr Hydromorphone HCl (Dilaudid 0.2 Mg/Ml Microsoft Office Instructor) 25 mls @ 0 mls/hr IV .Q0M PRN PRN Reason: TITRATE PER MD ORDER Last Admin: 10/01/16 18:37 Dose: 0.2 mls/hr Fluconazole (Diflucan Iv 400mg/200ml Ns) 200 mls @ 100 mls/hr IVPB DAILY ALEJANDRA PRN Reason: Protocol Last Admin: 10/01/16 09:51 Dose: 100 mls/hr Vancomycin HCl (Vancomycin 1gm) 1 gm in 250 mls @ 167 mls/hr IVPB Q12H ALEJANDRA PRN Reason: Protocol Last Admin: 10/01/16 19:14 Dose: 167 mls/hr Piperacillin Sod/Tazobactam Sod (Zosyn 3.375 In Ns 100ml) 100 mls @ 200 mls/hr IV Q6 ALEJANDRA PRN Reason: Protocol Last Admin: 10/01/16 18:02 Dose: 200 mls/hr Lactated Ringer's (Lactated Ringer's) 1,000 mls @ 50 mls/hr IV .Q20H [facility] Last Admin: 10/02/16 06:34 Dose: 50 mls/hr Levalbuterol HCl (Xopenex) 1.25 mg IH [id number] PRN PRN Reason: Shortness of Breath Last Admin: 09/30/16 13:24 Dose: 1.25 mg Metoclopramide HCl (Reglan) 10 mg IV ONCE PRN PRN Reason: Nausea/Vomiting Pantoprazole Sodium (Protonix Inj) 40 mg IVP DAILY [facility] Last Admin: 10/01/16 09:50 Dose: 40 mg - Labs Labs: 10/02/16 05:00 10/02/16 05:00 PT 12.8 Seconds (9.9-11.8) H 09/29/16 23:45 INR 1.19 (0.93-1.08) H 09/29/16 23:45 APTT 27.6 Seconds (23.7-30.8) 09/29/16 23:45 - Constitutional Appears: Non-toxic, No Acute Distress - Head Exam Head Exam: NORMAL INSPECTION - ENT Exam ENT Exam: Mucous Membranes Moist - Neck Exam Neck Exam: absent: Lymphadenopathy, Meningismus - Respiratory Exam Respiratory Exam: Decreased Breath Sounds - Cardiovascular Exam Cardiovascular Exam: +S1, +S2 - GI/Abdominal Exam GI & Abdominal Exam: Soft. absent: Tenderness Additional comments: ADWOA drains in place, with serosanguinous fluid Assessment and Plan - Assessment and Plan (Free Text) Plan: Assessment Sepsis due to intra-abdominal infection with bowel perforation and colovesical fistula S/P exploratory laparotomy, with lysis of adhesions, modified Margaret' s resection, and abdominal washout (09/30/16, POD #2) - growing yeast so far S/P appendectomy for gangrenous appendicitis COPD Atrial fibrillation not on anticoagulation CAD degenerative joint disease vertigo history of diverticulitis Plan Continue Zosyn and diflucan (day 3) pending final OR cx results follow up urinary bladder scan to see if that explains her decreased urine output will monitor clinically
--- NOTE | 2016-10-02 12:39 | PN ---
DATE: 10/02/2016 SUBJECTIVE: The patient is comfortable. She has no complaints of any pain. She had no nausea, no vomiting. PHYSICAL EXAMINATION: VITAL SIGNS: Temperature 98.2, pulse 86, blood pressure 150/58, respirations 20, and O2 saturation 93%. GENERAL: The patient is lying in bed, flat, comfortable. HEENT: No oral lesion. Anicteric sclerae. Moist mucosa. NECK: No JVD, adenopathy, or thyromegaly. CARDIOVASCULAR: S1 and S2, regular. No murmurs, rubs, or gallops. LUNGS: Clear to auscultation bilaterally. No wheeze, rales, or rhonchi. ABDOMEN: Bowel sounds are positive, soft, nontender and nondistended. The abdomen has a colostomy at present. GENITOURINARY: There is a Thomas at present. EXTREMITIES: No cyanosis, clubbing or edema. LABORATORY DATA: White count is 22 and hemoglobin is 12.4. Chemistry shows a sodium of 137, potassium 3.9, and creatinine is 1.0. ASSESSMENT: 1. Perforated sigmoid colon with colovesical fistula. 2. Appendicitis, status post appendectomy. 3. Acute kidney injury resolved. 4. Paroxysmal atrial fibrillation resolved. 5. Coronary artery disease. 6. Chronic obstructive pulmonary disease. 7. Chronic back pain. PLAN: The patient is currently comfortable. She is on antibiotics. She is in the ICU. I did speak to the patient's daughter Sona yesterday. I would like give an update on the patient's diagnoses and plan. The patient is going to be transferred out of the ICU. She is not on any pressors, is not intubated, and does not require critical care management. She remains sick and will need time to recover from her second surgery. She is on lactated Ringer's. She is on liquid diet. Now we will discontinue the patient's lactated Ringer's, as she may be getting fluid overload. She is given a dose of Lasix because of rhonchi that the patient may have had according to the night nurse. The patient is on Lovenox for DVT prophylaxis. He is on Protonix IV. She is going to continue with Zosyn for antibiotics, she is on vancomycin, and she is on fluconazole. She is going to get repeat blood work tomorrow. Abhishek Mac MD [facility] # [id number]
--- NOTE | 2016-10-02 13:16 | PN ---
DATE: 10/02/2016 SUBJECTIVE: Ms. Rasmussen is resting and feels much more comfortable with SHORTHAND TEACHER pump, is status post abdominal surgery. She is O2 via nasal cannula, noted that earlier this morning needed Lasix because of mild respiratory insufficiency, has improved with diuresis felt to be secondary to pulmonary edema. Patient is hemodynamically stable and comfortable at this time. PHYSICAL EXAMINATION: VITAL SIGNS: Temperature 98.2, pulse 86, respirations 20, BP 150/58, O2 saturation is 93%. SKIN: Warm and dry. HEENT: Head atraumatic normocephalic. Eyes reactive to light. Ears, nose and throat seen to be within normal limits. NECK: Supple, no JVD, no thyroid enlargement, no lymph nodes. HEART: Has regular rate and rhythm. Normal S1 and S2. LUNGS: Mild rhonchi at the bases. ABDOMEN: Soft, decreased bowel sounds. Tender to palpation. GENITALIA AND RECTAL: Deferred. MUSCULOSKELETAL: No joint deformities. EXTREMITIES: Trace lower extremity edema. NEUROLOGIC: She seems to be grossly intact. LABORATORY DATA: As far as her laboratories are concern; her white count is 22.0, hemoglobin 12.4, hematocrit 37.7, platelets are 274,000. Her sodium is 137, potassium 3.9, chloride 101, CO2 of 26 with a BUN of 21, creatinine of 1.0, and glucose of 105. Patient chest x-ray is pending. IMPRESSION: As far as my impression, this patient has presented acute appendicitis and has had ruptured diverticulitis and is now post-surgery. The patient has a colovesical fistula and is noted to have some peritonitis and resulting with sepsis. She has some mild pulmonary edema as well. PLAN: As far as our plan, we will continue with IV fluids. Patient is getting fluconazole, she is getting bronchodilators of DuoNeb and is on a SHORTHAND TEACHER pump for pain. The patient is on prophylactic Lovenox and continues with Protonix and Reglan and is on Zosyn as far as antibiotics as well. We will continue with the vancomycin and giving Tylenol for any temperature. We will continue with O2 via nasal cannula and followup closely and treat aggressively along with the other consultants and primary care doctor. Buddy Dolan MD
[2016-10-02] MEDS: HYDROmorphone 0.2 mg/ml (25ml) 25 ML IV PRN (22:54)
[2016-10-03] MEDS: Piperacillin/Tazobact 3.375 gm 100 ML IVPB SCH ×4 (00:42→18:14)
[2016-10-03 05:58] LABS: BASO # 0.02 K/mm3 (0.0-2.0); BASO % 0.1 % (0.0-3.0); GRAN # 20.13 (1.4-6.5); GRAN % 93.1 % (50.0-68.0); HEMOGLOBIN 11.3 g/dL (12.0-16.0); LYMPH # 0.8 (1.2-3.4); LYMPH % 3.5 % (22.0-35.0); MEAN CELL VOLUME 92.8 fl (80.0-105.0); MEAN CORPUSCULAR HEMOGLOBIN 30.3 pg (25.0-35.0); MEAN CORPUSCULAR HGB CONC 32.7 g/dl (31.0-37.0); MEAN PLATELET VOLUME 9.6 fl (7.0-11.0); MONO # 0.7 (0.1-0.6); MONO % 3.3 % (1.0-6.0); PLATELET COUNT 240 10^3/uL (120.0-450.0); RBC 3.73 10^6/uL (3.5-6.1); RED CELL DISTRIBUTION WIDTH 14.4 % (11.5-14.5); WHITE BLOOD COUNT 21.6 10^3/ul (4.5-11.0)
[2016-10-03 06:07] LABS: ALB/GLOB RATIO 0.9 (1.1-1.8); ALBUMIN 2.3 g/dL (3.0-4.8); ALT/SGPT 22 U/L (7-56); AST/SGOT 20 U/L (15-39); BLOOD UREA NITROGEN 23 mg/dL (7-21); CALCIUM 7.7 mg/dL (8.4-10.5); GFR AFRICAN-AMERICAN > 60; GFR NON-AFRICAN AMERICAN 59
--- NOTE | 2016-10-03 07:53 | CP.PCM.PN ---
Subjective - Date & Time of Evaluation Date of Evaluation: 10/03/16 Time of Evaluation: 07:15 - Subjective Subjective: General sx progress note for Dr. Yimi Meade, PGY-1 Pt S & E at bedside. Pt reports pain not well controlled overnight, feels worse today vs. yesterday. Denies N/V/F/C, SOB, CP, LE pain. Thomas in place with 550cc dark matias feculant UOP. Objective - Vital Signs/Intake and Output Vital Signs (last 24 hours): Temp Pulse Resp BP Pulse Ox 98.9 F 80 24 144/57 L 97 10/03/16 05:00 10/03/16 07:01 10/03/16 07:01 10/03/16 07:00 10/03/16 06:00 Intake and Output: 10/03/16 10/03/16 06:59 18:59 Intake Total 745 Output Total 870 Balance -125 - Medications Medications: Current Medications Acetaminophen (Tylenol 325mg Tab) 650 mg PO Q4 PRN PRN Reason: Fever >100.4 F Albuterol/Ipratropium (Duoneb 3 Mg/0.5 Mg (3 Ml) Ud) 3 ml IH [id number] PRN PRN Reason: Shortness of Breath Last Admin: 10/01/16 02:10 Dose: 3 ml Enoxaparin Sodium (Lovenox) 40 mg SC DAILY ALEJANDRA PRN Reason: Protocol Last Admin: 10/02/16 09:43 Dose: 40 mg Furosemide (Lasix) 40 mg IVP Q12 ALEJANDRA Piperacillin Sod/Tazobactam Sod (Zosyn 3.375 In Ns 100ml) 100 mls @ 200 mls/hr IVPB Q6 ALEJANDRA PRN Reason: Protocol Stop: 10/07/16 10:23 Last Admin: 10/03/16 05:39 Dose: 200 mls/hr Hydromorphone HCl (Dilaudid 0.2 Mg/Ml Dermatology Nurse Practitioner) 25 mls @ 0 mls/hr IV .Q0M PRN PRN Reason: TITRATE PER MD ORDER Last Admin: 10/02/16 22:54 Dose: 0.2 mls/hr Fluconazole (Diflucan Iv 400mg/200ml Ns) 200 mls @ 100 mls/hr IVPB DAILY ALEJANDRA PRN Reason: Protocol Last Admin: 10/02/16 09:52 Dose: 100 mls/hr Vancomycin HCl (Vancomycin 1gm) 1 gm in 250 mls @ 167 mls/hr IVPB Q12H ALEJANDRA PRN Reason: Protocol Last Admin: 10/02/16 20:57 Dose: 167 mls/hr Levalbuterol HCl (Xopenex) 1.25 mg IH [id number] PRN PRN Reason: Shortness of Breath Last Admin: 09/30/16 13:24 Dose: 1.25 mg Metoclopramide HCl (Reglan) 10 mg IV ONCE PRN PRN Reason: Nausea/Vomiting Pantoprazole Sodium (Protonix Inj) 40 mg IVP DAILY [facility] Last Admin: 10/02/16 09:43 Dose: 40 mg - Labs Labs: 10/03/16 05:30 10/03/16 05:30 PT 12.8 Seconds (9.9-11.8) H 09/29/16 23:45 INR 1.19 (0.93-1.08) H 09/29/16 23:45 APTT 27.6 Seconds (23.7-30.8) 09/29/16 23:45 - Constitutional Appears: Non-toxic, No Acute Distress - Head Exam Head Exam: ATRAUMATIC, NORMAL INSPECTION, NORMOCEPHALIC - Eye Exam Eye Exam: EOMI, Normal appearance - ENT Exam ENT Exam: Mucous Membranes Moist, Normal Exam - Neck Exam Neck Exam: Normal Inspection - Respiratory Exam Respiratory Exam: Rhonchi, NORMAL BREATHING PATTERN. absent: Clear to Ausculation Bilateral, Rales, Wheezes, Respiratory Distress, Stridor - Cardiovascular Exam Cardiovascular Exam: REGULAR RHYTHM, +S1, +S2 - GI/Abdominal Exam GI & Abdominal Exam: Soft, Tenderness (minimal, around incision sites), Hypoactive Bowel Sounds. absent: Distended, Firm, Guarding, Rigid Additional comments: Stoma patent, ostomy bag with dark brown liquid stool, dressing in place-C/D/I; [place] drains in place x 2, R [place] with 20cc/24H serous output, L [place] with 20cc/24H serosanguinous output- drain dressings C/D/I - Exam Additional comments: Thomas with 550 cc/24H dark matias, feculant output - Extremities Exam Extremities Exam: absent: Pedal Edema, Tenderness - Neurological Exam Neurological Exam: Alert, Awake, CN II-XII Intact, Oriented x3 - Psychiatric Exam Psychiatric exam: Normal Affect, Normal Mood - Skin Skin Exam: Dry, Normal Color, Warm Assessment and Plan - Assessment and Plan (Free Text) Assessment: 89F s/p exlap with modified Margaret's POD 3; s/p open appendectomy POD 13 Plan: Pain mgmt- ok to cont 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
[2016-10-03] MEDS: Vancomycin 1gm in NS 250ml 1 GM/250 ML BAG IVPB SCH ×2 (08:30→18:59)
[2016-10-03] MEDS: Fluconazole IV 400mg/200ml NS 200 ML IVPB SCH (10:10)
--- NOTE | 2016-10-03 11:11 | PN ---
DATE: 10/03/2016 OFFSET PRESSMAN NOTE SUBJECTIVE: The patient is resting in bed with O2 via nasal cannula, continues to require some pain meds for surgical pains. No obvious respiratory distress this morning and continues to have diuresis for the pulmonary edema. The patient is hemodynamically stable. PHYSICAL EXAMINATION: VITAL SIGNS: Temperature is 98.2, pulse is 70, respirations are 22, BP is 146/62, O2 saturation is 96%. HEENT: Head is atraumatic, normocephalic. Eyes reactive to light. Ears, nose and throat seen to be within normal limits. NECK: Supple, no JVD, no thyroid enlargement, no lymph nodes. HEART: Regular rate and rhythm. Normal S1 and S2. LUNGS: Mild rhonchi bilaterally. ABDOMEN: Soft, decreased bowel sounds. GENITALIA AND RECTAL: Deferred. MUSCULOSKELETAL: No joint deformities. EXTREMITIES: Trace lower extremity edema. NEUROLOGIC: The patient is grossly intact. LABORATORY DATA: As far as her laboratories are concerned, her white count is 21.6, hemoglobin is 11.3, hematocrit 34.6, platelets are 240,000. Sodium is 136, potassium 4.1, chloride 101, CO2 of 29 with a BUN of 23, creatinine of 0.9, and glucose of 97. IMPRESSION: The patient presented with acute appendicitis and the patient has had ruptured diverticulitis and now is post surgery. She has a colovesical fistula and noted to be treated peritonitis and sepsis. The patient does have some component of pulmonary edema as well. PLAN: As far as our plan, we will continue with fluconazole, bronchodilators, DuoNeb. The patient is on pain meds as well. She is on prophylactic Lovenox and continue with Protonix, Reglan, Zosyn. She is on vancomycin as well as Tylenol for any temperature and O2 via nasal cannula. The patient will continue with present medications. We will continue to treat aggressively along with the other consultants and the primary care doctor. Buddy Dolan MD
[2016-10-03] MEDS: Enoxaparin 40 mg Syringe SC SCH (11:31)
--- NOTE | 2016-10-03 15:37 | CP.PCM.PN ---
Subjective - Date & Time of Evaluation Date of Evaluation: 10/03/16 Time of Evaluation: 09:20 - Subjective Subjective: Still having abdominal discomfort but better. Still with fecal material coming out of the Thomas catheter. No fevers overnight. Objective - Vital Signs/Intake and Output Vital Signs (last 24 hours): Temp Pulse Resp BP Pulse Ox 98.9 F 80 24 144/57 L 97 10/03/16 05:00 10/03/16 07:01 10/03/16 07:01 10/03/16 07:00 10/03/16 06:00 - Medications Medications: Current Medications Acetaminophen (Tylenol 325mg Tab) 650 mg PO Q4 PRN PRN Reason: Fever >100.4 F Albuterol/Ipratropium (Duoneb 3 Mg/0.5 Mg (3 Ml) Ud) 3 ml IH [id number] PRN PRN Reason: Shortness of Breath Last Admin: 10/01/16 02:10 Dose: 3 ml Enoxaparin Sodium (Lovenox) 40 mg SC DAILY ALEJANDRA PRN Reason: Protocol Last Admin: 10/02/16 09:43 Dose: 40 mg Furosemide (Lasix) 40 mg IVP Q12 ALEJANDRA Piperacillin Sod/Tazobactam Sod (Zosyn 3.375 In Ns 100ml) 100 mls @ 200 mls/hr IVPB Q6 ALEJANDRA PRN Reason: Protocol Stop: 10/07/16 10:23 Last Admin: 10/03/16 05:39 Dose: 200 mls/hr Hydromorphone HCl (Dilaudid 0.2 Mg/Ml [employer]ist[employer]) 25 mls @ 0 mls/hr IV .Q0M PRN PRN Reason: TITRATE PER MD ORDER Last Admin: 10/02/16 22:54 Dose: 0.2 mls/hr Fluconazole (Diflucan Iv 400mg/200ml Ns) 200 mls @ 100 mls/hr IVPB DAILY ALEJANDRA PRN Reason: Protocol Last Admin: 10/02/16 09:52 Dose: 100 mls/hr Vancomycin HCl (Vancomycin 1gm) 1 gm in 250 mls @ 167 mls/hr IVPB Q12H ALEJANDRA PRN Reason: Protocol Last Admin: 10/02/16 20:57 Dose: 167 mls/hr Levalbuterol HCl (Xopenex) 1.25 mg IH [id number] PRN PRN Reason: Shortness of Breath Last Admin: 09/30/16 13:24 Dose: 1.25 mg Metoclopramide HCl (Reglan) 10 mg IV ONCE PRN PRN Reason: Nausea/Vomiting Pantoprazole Sodium (Protonix Inj) 40 mg IVP DAILY [facility] Last Admin: 10/02/16 09:43 Dose: 40 mg - Labs Labs: 10/03/16 05:30 10/03/16 05:30 PT 12.8 Seconds (9.9-11.8) H 09/29/16 23:45 INR 1.19 (0.93-1.08) H 09/29/16 23:45 APTT 27.6 Seconds (23.7-30.8) 09/29/16 23:45 - Constitutional Appears: Non-toxic, No Acute Distress - Head Exam Head Exam: NORMAL INSPECTION - ENT Exam ENT Exam: Mucous Membranes Moist - Neck Exam Neck Exam: absent: Lymphadenopathy, Meningismus - Respiratory Exam Respiratory Exam: Decreased Breath Sounds - Cardiovascular Exam Cardiovascular Exam: +S1, +S2 - GI/Abdominal Exam GI & Abdominal Exam: Soft. absent: Tenderness Additional comments: abdominal drain in place Assessment and Plan - Assessment and Plan (Free Text) Plan: Assessment Sepsis due to intra-abdominal infection with bowel perforation and colovesical fistula S/P exploratory laparotomy, with lysis of adhesions, modified Margaret' s resection, and abdominal washout (09/30/16, POD #3) - growing yeast so far S/P appendectomy for gangrenous appendicitis COPD Atrial fibrillation not on anticoagulation CAD degenerative joint disease vertigo history of diverticulitis Plan Continue Zosyn and diflucan (day 4) pending final OR cx results continue to monitor output from the abdominal drain and from the Thomas catheter will continue to monitor clinically
[2016-10-04] MEDS: Piperacillin/Tazobact 3.375 gm 100 ML IVPB SCH ×2 (00:29→05:43)
[2016-10-04] MEDS: HYDROmorphone 0.2 mg/ml (25ml) 25 ML IV PRN (03:05)
--- NOTE | 2016-10-04 04:56 | PN ---
DATE: 10/03/2016 SUBJECTIVE: Patient has no complaints of any chest pain, no shortness of breath, no headache or dizziness. PHYSICAL EXAMINATION: VITAL SIGNS: Temperature is 97.7, pulse is 78, blood pressure is 135/58, respiration is 18. GENERAL: The patient is lying in bed, flat, comfortable. HEENT: No oral lesion. Anicteric sclerae. Moist mucosa. NECK: No JVD, adenopathy, or thyromegaly. CARDIOVASCULAR: S1 and S2, regular. No murmurs, rubs, or gallops. LUNGS: Clear to auscultation bilaterally. No wheeze, rales, or rhonchi. ABDOMEN: Positive for ostomy. EXTREMITIES: No cyanosis, clubbing or edema. GENITOURINARY: There is a Thomas catheter in place. LABORATORY DATA: White count of 21.6, hemoglobin of 11.3, creatinine 0.9. ASSESSMENT AND PLAN: 1. Perforated sigmoid colon with colovesical fistula. 2. Appendicitis status post appendectomy. 3. Acute kidney injury. 4. Sepsis. 5. Paroxysmal atrial fibrillation, resolved. 6. Coronary artery disease. 7. Chronic obstructive pulmonary disease. 8. Chronic back pain. The patient is *------*. I did speak to the patient's son Hesham at length. The patient is going to be transferred out of the ICU. She is going to continue with fluconazole. She is on Dilaudid for pain with [employer] pump. She is on Protonix daily. She is on Zosyn. She is going to need physical therapy. She will need to continue to be followed closely. Abhishek Mac MD
[2016-10-04 07:16] LABS: BASO # 0.01 K/mm3 (0.0-2.0); BASO % 0.1 % (0.0-3.0); EOS % 0.1 % (1.5-5.0); GRAN # 18.06 (1.4-6.5); HEMOGLOBIN 10.7 g/dL (12.0-16.0); LYMPH # 0.7 (1.2-3.4); LYMPH % 3.5 % (22.0-35.0); MEAN CELL VOLUME 92.2 fl (80.0-105.0); MEAN CORPUSCULAR HGB CONC 32.5 g/dl (31.0-37.0); MEAN PLATELET VOLUME 9.9 fl (7.0-11.0); MONO # 0.6 (0.1-0.6); MONO % 3.3 % (1.0-6.0); PLATELET COUNT 248 10^3/uL (120.0-450.0); RBC 3.57 10^6/uL (3.5-6.1); RED CELL DISTRIBUTION WIDTH 14.4 % (11.5-14.5); WHITE BLOOD COUNT 19.4 10^3/ul (4.5-11.0)
[2016-10-04 07:24] LABS: ALB/GLOB RATIO 0.9 (1.1-1.8); ALBUMIN 2.3 g/dL (3.0-4.8); ALT/SGPT 20 U/L (7-56); AST/SGOT 24 U/L (15-39); BLOOD UREA NITROGEN 21 mg/dL (7-21); CALCIUM 7.2 mg/dL (8.4-10.5); GFR AFRICAN-AMERICAN > 60; GFR NON-AFRICAN AMERICAN > 60
[2016-10-04] MEDS ORDERED: Potassium Chl 40 mEq in D5-1/2 1,000 ML IV SCH (07:33)
--- NOTE | 2016-10-04 07:44 | CP.PCM.PN ---
<Barbara Conti - Last Filed: 10/04/16 09:27> Subjective - Date & Time of Evaluation Date of Evaluation: 10/04/16 Time of Evaluation: 07:20 - Subjective Subjective: Progress note for Dr Mac service. Patient with no acute events overnight. Patient c/o abdominal pain, admits to sob. Patient has not been able to participate in PT due to discomfort. Patient denies chest pain. Admits to nausea. Denies vomiting. Afebrile, and remains hemodynamically stable. Objective - Vital Signs/Intake and Output Vital Signs (last 24 hours): Temp Pulse Resp BP Pulse Ox 97.7 F 78 18 135/58 L 91 L 10/03/16 17:00 10/03/16 16:28 10/03/16 17:00 10/03/16 21:25 10/03/16 16:28 Intake and Output: 10/04/16 10/04/16 06:59 18:59 Intake Total 720 Output Total 1895 Balance -1175 - Medications Medications: Current Medications Acetaminophen (Tylenol 325mg Tab) 650 mg PO Q4 PRN PRN Reason: Fever >100.4 F Albuterol/Ipratropium (Duoneb 3 Mg/0.5 Mg (3 Ml) Ud) 3 ml IH [id number] PRN PRN Reason: Shortness of Breath Last Admin: 10/01/16 02:10 Dose: 3 ml Enoxaparin Sodium (Lovenox) 40 mg SC DAILY ALEJANDRA PRN Reason: Protocol Last Admin: 10/03/16 11:31 Dose: 40 mg Furosemide (Lasix) 40 mg IVP Q12 ALEJANDRA Last Admin: 10/03/16 21:25 Dose: 40 mg Piperacillin Sod/Tazobactam Sod (Zosyn 3.375 In Ns 100ml) 100 mls @ 200 mls/hr IVPB Q6 ALEJANDRA PRN Reason: Protocol Stop: 10/07/16 10:23 Last Admin: 10/04/16 05:43 Dose: 200 mls/hr Fluconazole (Diflucan Iv 400mg/200ml Ns) 200 mls @ 100 mls/hr IVPB DAILY ALEJANDRA PRN Reason: Protocol Last Admin: 10/03/16 10:10 Dose: 100 mls/hr Vancomycin HCl (Vancomycin 1gm) 1 gm in 250 mls @ 167 mls/hr IVPB Q12H ALEJANDRA PRN Reason: Protocol Last Admin: 10/03/16 18:59 Dose: 167 mls/hr Potassium Chloride 40 meq/ (Dextrose/Sodium Chloride) 1,020 mls @ 75 mls/hr IV .[id number] [facility] Levalbuterol HCl (Xopenex) 1.25 mg IH [id number] PRN PRN Reason: Shortness of Breath Last Admin: 09/30/16 13:24 Dose: 1.25 mg Metoclopramide HCl (Reglan) 10 mg IV ONCE PRN PRN Reason: Nausea/Vomiting Oxycodone/Acetaminophen (Percocet 5/325 Mg Tab) 1 tab PO Q4H PRN PRN Reason: Pain, moderate (4-7) Stop: 10/07/16 07:25 Pantoprazole Sodium (Protonix Inj) 40 mg IVP DAILY [facility] Last Admin: 10/03/16 10:02 Dose: 40 mg - Labs Labs: 10/04/16 06:40 10/04/16 06:40 PT 12.8 Seconds (9.9-11.8) H 09/29/16 23:45 INR 1.19 (0.93-1.08) H 09/29/16 23:45 APTT 27.6 Seconds (23.7-30.8) 09/29/16 23:45 - Constitutional Appears: No Acute Distress, Chronically Ill - Head Exam Head Exam: ATRAUMATIC, NORMAL INSPECTION, NORMOCEPHALIC - Eye Exam Eye Exam: Normal appearance, PERRL. absent: Scleral icterus - ENT Exam ENT Exam: Mucous Membranes Moist - Neck Exam Neck Exam: Normal Inspection - Respiratory Exam Respiratory Exam: Decreased Breath Sounds (at the bases. ), NORMAL BREATHING PATTERN. absent: Rales, Rhonchi, Wheezes, Respiratory Distress, Stridor - Cardiovascular Exam Cardiovascular Exam: REGULAR RHYTHM, +S1, +S2. absent: Bradycardia, Tachycardia , Murmur - GI/Abdominal Exam GI & Abdominal Exam: Distended, Tenderness (at the incision site), Hypoactive Bowel Sounds Additional comments: loose stool in the ostomy bag. 2 [place] drains, with minimal serosanguious drain. Thomas bag with stool mixed with urine. Incision site with clean dressing. - Extremities Exam Extremities Exam: Pedal Edema - Neurological Exam Neurological Exam: Alert, Awake, Oriented x3 - Psychiatric Exam Psychiatric exam: Depressed - Skin Skin Exam: Diaphoretic, Normal Color, Warm Assessment and Plan - Assessment and Plan (Free Text) Assessment: 1) Perforated sigmoid colon with colovesical fistula s/p modified rodrigues's 2) Appendicitis s/p appendectomy 3) EUGENIA- resolved 4) Sepsis 5) Paroxysmal afib- (resolved) 6) CAD 7) COPD 8) Chronic back pain 9) Hypokalemia Plan: Patient remains afebrile, hemodynamically stable, with no growth on bcx, wound culture growing gram negative otilio and yeast, pending sensitivity. ID following , patient is on zosyn, vanco and diflucan. Ostomy bag with loose stool, will obtain c diff. Surgical care as per surgery. Will obtain mag, and replete potassium for hypokalemia with D5 with K+. On duoneb prn for SOB, on Lasix ivp for edema, percocet and morphine prn for pain. Patient is also on protonix and Lovenox sc for gi/dvt prophylaxis. Zofran prn for nausea/vomiting. Discussed goal with patient, to attempt OOBTC today. Patient seen, examined, and case discussed with Dr Mac. <Abhishek Mac S - Last Filed: 10/04/16 19:58> Objective - Vital Signs/Intake and Output Vital Signs (last 24 hours): Temp Pulse Resp BP Pulse Ox 98.4 F 73 20 181/79 H 96 10/04/16 16:00 10/04/16 16:00 10/04/16 16:00 10/04/16 16:00 10/04/16 16:00 Intake and Output: 10/04/16 10/05/16 18:59 06:59 Intake Total 360 Output Total 1500 Balance -1140 - Medications Medications: Current Medications Acetaminophen (Tylenol 325mg Tab) 650 mg PO Q4 PRN PRN Reason: Fever >100.4 F Albuterol/Ipratropium (Duoneb 3 Mg/0.5 Mg (3 Ml) Ud) 3 ml IH [id number] PRN PRN Reason: Shortness of Breath Last Admin: 10/04/16 10:34 Dose: 3 ml Enoxaparin Sodium (Lovenox) 40 mg SC DAILY ALEJANDRA PRN Reason: Protocol Last Admin: 10/04/16 10:01 Dose: 40 mg Furosemide (Lasix) 40 mg IVP Q12 [facility] Last Admin: 10/04/16 10:04 Dose: 40 mg Fluconazole (Diflucan Iv 400mg/200ml Ns) 200 mls @ 100 mls/hr IVPB DAILY ALEJANDRA PRN Reason: Protocol Last Admin: 10/04/16 10:05 Dose: 100 mls/hr Vancomycin HCl (Vancomycin 1gm) 1 gm in 250 mls @ 167 mls/hr IVPB Q12H ALEJANDRA PRN Reason: Protocol Last Admin: 10/04/16 19:07 Dose: 167 mls/hr Potassium Chloride 40 meq/ (Dextrose/Sodium Chloride) 1,020 mls @ 75 mls/hr IV .[id number] [facility] Last Admin: 10/04/16 08:47 Dose: 75 mls/hr Meropenem 1g/NS 100mL IVPB (Meropenem 1g/Ns 100ml Ivpb) 1 gm in 100 mls @ 100 mls/hr IVPB Q8 ALEJANRDA PRN Reason: Protocol Stop: 10/11/16 14:01 Last Admin: 10/04/16 14:53 Dose: 100 mls/hr Morphine Sulfate (Morphine) 2 mg IVP Q4H PRN PRN Reason: Pain, severe (8-10) Last Admin: 10/04/16 14:52 Dose: 2 mg Ondansetron HCl (Zofran Inj) 4 mg IVP Q4H PRN PRN Reason: Nausea/Vomiting Oxycodone/Acetaminophen (Percocet 5/325 Mg Tab) 1 tab PO Q4H PRN PRN Reason: Pain, moderate (4-7) Stop: 10/07/16 07:25 Last Admin: 10/04/16 12:05 Dose: 1 tab Pantoprazole Sodium (Protonix Inj) 40 mg IVP DAILY [facility] Last Admin: 10/04/16 10:01 Dose: 40 mg - Labs Labs: 10/04/16 06:40 10/04/16 06:40 PT 12.8 Seconds (9.9-11.8) H 09/29/16 23:45 INR 1.19 (0.93-1.08) H 09/29/16 23:45 APTT 27.6 Seconds (23.7-30.8) 09/29/16 23:45 Assessment and Plan - Assessment and Plan (Free Text) Plan: Pt seen and examined. Resident note reviewed and agree with it. Pt prognosis is guarded.
[2016-10-04] MEDS ORDERED: Potassium Ch 20mEq in D5W 50 ML in Dextrose 5%/0.45% NS 1,000 ML IV SCH (07:45)
--- NOTE | 2016-10-04 07:56 | CP.PCM.PN ---
Subjective - Date & Time of Evaluation Date of Evaluation: 10/04/16 Time of Evaluation: 07:20 - Subjective Subjective: GENERAL SURGERY PROGRESS NOTE: Dr. Baez Pt s/e at bedside. Pt is POD #4 s/p ex-lap with modified Day's procedure for perforated sigmoid diverticulitis and colovesicular fistula. No events overnight. Pt reports ongoing abdominal pain, worse in the LLQ, similar to pain since surgery. She feels that pain is well-controlled. She now complains of fatigue and insomnia. Denies n/v, dyspnea, and chest pain. She has not yet been OOB, but expresses interest in PT eval. Objective - Vital Signs/Intake and Output Vital Signs (last 24 hours): Temp Pulse Resp BP Pulse Ox 97.7 F 78 18 135/58 L 91 L 10/03/16 17:00 10/03/16 16:28 10/03/16 17:00 10/03/16 21:25 10/03/16 16:28 Intake and Output: 10/04/16 10/04/16 06:59 18:59 Intake Total 720 Output Total 1895 Balance -1175 - Medications Medications: Current Medications Acetaminophen (Tylenol 325mg Tab) 650 mg PO Q4 PRN PRN Reason: Fever >100.4 F Albuterol/Ipratropium (Duoneb 3 Mg/0.5 Mg (3 Ml) Ud) 3 ml IH [id number] PRN PRN Reason: Shortness of Breath Last Admin: 10/01/16 02:10 Dose: 3 ml Enoxaparin Sodium (Lovenox) 40 mg SC DAILY ALEJANDRA PRN Reason: Protocol Last Admin: 10/03/16 11:31 Dose: 40 mg Furosemide (Lasix) 40 mg IVP Q12 ALEJANDRA Last Admin: 10/03/16 21:25 Dose: 40 mg Piperacillin Sod/Tazobactam Sod (Zosyn 3.375 In Ns 100ml) 100 mls @ 200 mls/hr IVPB Q6 ALEJANDRA PRN Reason: Protocol Stop: 10/07/16 10:23 Last Admin: 10/04/16 05:43 Dose: 200 mls/hr Fluconazole (Diflucan Iv 400mg/200ml Ns) 200 mls @ 100 mls/hr IVPB DAILY ALEJANDRA PRN Reason: Protocol Last Admin: 10/03/16 10:10 Dose: 100 mls/hr Vancomycin HCl (Vancomycin 1gm) 1 gm in 250 mls @ 167 mls/hr IVPB Q12H ALEJANDRA PRN Reason: Protocol Last Admin: 10/03/16 18:59 Dose: 167 mls/hr Potassium Chloride/Dextrose/Sod Cl (Potassium Chl 40 Meq In D5-1/2ns) 1,000 mls @ 75 mls/hr IV .[id number] [facility] Levalbuterol HCl (Xopenex) 1.25 mg IH [id number] PRN PRN Reason: Shortness of Breath Last Admin: 09/30/16 13:24 Dose: 1.25 mg Metoclopramide HCl (Reglan) 10 mg IV ONCE PRN PRN Reason: Nausea/Vomiting Oxycodone/Acetaminophen (Percocet 5/325 Mg Tab) 1 tab PO Q4H PRN PRN Reason: Pain, moderate (4-7) Stop: 10/07/16 07:25 Pantoprazole Sodium (Protonix Inj) 40 mg IVP DAILY [facility] Last Admin: 10/03/16 10:02 Dose: 40 mg - Labs Labs: 10/04/16 06:40 10/04/16 06:40 PT 12.8 Seconds (9.9-11.8) H 09/29/16 23:45 INR 1.19 (0.93-1.08) H 09/29/16 23:45 APTT 27.6 Seconds (23.7-30.8) 09/29/16 23:45 - Constitutional Appears: No Acute Distress, Other (lethargic ) - Head Exam Head Exam: NORMAL INSPECTION - Eye Exam Eye Exam: EOMI, Normal appearance. absent: Conjunctival injection, Scleral icterus - ENT Exam ENT Exam: Mucous Membranes Moist - Neck Exam Neck Exam: Full ROM - Respiratory Exam Respiratory Exam: NORMAL BREATHING PATTERN. absent: Accessory Muscle Use, Respiratory Distress, Stridor - Cardiovascular Exam Cardiovascular Exam: REGULAR RHYTHM - GI/Abdominal Exam GI & Abdominal Exam: Soft, Tenderness (appropriate post op tenderness). absent : Firm, Rigid Additional comments: Colostomy bag in place with normal stool contents. Stoma is clean, moist, pink. Midline incision with retention sutures c/d/i. Bilat ADWOA drains in place c/d/i. Right drain with serous drainage. Left ADWOA with serosanguinous drainage. - Exam Additional comments: Thomas catheter in place draining feculent urine. - Neurological Exam Neurological Exam: Alert (Pt lethargic on exam. Normal speech in content and tone.), Awake, Oriented x3 - Psychiatric Exam Psychiatric exam: Normal Affect, Normal Mood - Skin Skin Exam: Normal Color, Warm Assessment and Plan - Assessment and Plan (Free Text) Assessment: A/P: 89 yo F s/p ex-lap with modified Day's procedure for perforated sigmoid diverticulitis and colovesicular fistula. 1. Abdominal pain -D/C [employer] hydromorphone. Start morphine 2q4 and Percocet 5/325 PO q4h prn for breakthrough pain. -Continue to monitor ostomy site and output. -Continue liquid diet -PT eval 2. Leukocytosis: trending down from 24.3 to 21, now at 19.4 -Continue, IV antibiotics and daily CBC -Continue acetaminophen 650mg PO prn for fever -Dr. Machado consulted and will change abx to Merrem 3. Colovesicular fistulae -Maintain Thomas with prn flushes for blockage -Urology recs 4. COPD -Continue albuterol and Duoneb prn for SOB -Incentive spirometry 5. Prophylaxis -VTE: LVX 40mg SC daily, SCDs -GI: PTX 40mg IVP daily -Continue aspiration precautions -Activity level: OOB as tolerated Will discuss with Dr. Baez. Lacy Levy, DO PGY1
[2016-10-04] MEDS: Potassium Chloride 40 MEQ in Dextrose 5%/0.45% NS 1,000 ML IV SCH (08:47)
[2016-10-04] MEDS: Vancomycin 1gm in NS 250ml 1 GM/250 ML BAG IVPB SCH ×2 (08:47→19:07)
[2016-10-04] MEDS: Enoxaparin 40 mg Syringe SC SCH (10:01)
[2016-10-04] MEDS: Fluconazole IV 400mg/200ml NS 200 ML IVPB SCH (10:05)
[2016-10-04] MEDS: Morphine 2 mg/ml ISec IVP PRN ×2 (10:18→14:52)
[2016-10-04] MEDS: Albuterol-Ipratrop 3 mg / 0.5 (3 ml) UD IH PRN (10:34)
[2016-10-04] MEDS: Oxycodone/Acetaminophen 5/325 mg Tab PO PRN (12:05)
[2016-10-04] MEDS: Meropenem 1g/NS 100mL IVPB 1 GM/100 ML PIGGYBACK IVPB SCH ×2 (14:53→21:49)
--- NOTE | 2016-10-04 15:20 | CP.PCM.PN ---
Subjective - Date & Time of Evaluation Date of Evaluation: 10/04/16 Time of Evaluation: 12:30 - Subjective Subjective: Still having abdominal pain, no fevers, no nausea. Objective - Vital Signs/Intake and Output Vital Signs (last 24 hours): Temp Pulse Resp BP Pulse Ox 97.7 F 79 22 134/73 92 L 10/04/16 07:30 10/04/16 07:30 10/04/16 07:30 10/04/16 10:04 10/04/16 07:30 Intake and Output: 10/04/16 10/04/16 06:59 18:59 Intake Total 720 Output Total 1895 Balance -1175 - Medications Medications: Current Medications Acetaminophen (Tylenol 325mg Tab) 650 mg PO Q4 PRN PRN Reason: Fever >100.4 F Albuterol/Ipratropium (Duoneb 3 Mg/0.5 Mg (3 Ml) Ud) 3 ml IH [id number] PRN PRN Reason: Shortness of Breath Last Admin: 10/04/16 10:34 Dose: 3 ml Enoxaparin Sodium (Lovenox) 40 mg SC DAILY ALEJANDRA PRN Reason: Protocol Last Admin: 10/04/16 10:01 Dose: 40 mg Furosemide (Lasix) 40 mg IVP Q12 ALEJANDRA Last Admin: 10/04/16 10:04 Dose: 40 mg Fluconazole (Diflucan Iv 400mg/200ml Ns) 200 mls @ 100 mls/hr IVPB DAILY ALEJANDRA PRN Reason: Protocol Last Admin: 10/04/16 10:05 Dose: 100 mls/hr Vancomycin HCl (Vancomycin 1gm) 1 gm in 250 mls @ 167 mls/hr IVPB Q12H ALEJANDRA PRN Reason: Protocol Last Admin: 10/04/16 08:47 Dose: 167 mls/hr Potassium Chloride 40 meq/ (Dextrose/Sodium Chloride) 1,020 mls @ 75 mls/hr IV .[id number] ALEJANDRA Last Admin: 10/04/16 08:47 Dose: 75 mls/hr Meropenem 1g/NS 100mL IVPB (Meropenem 1g/Ns 100ml Ivpb) 100 mls @ 100 mls/hr IVPB Q8 ALEJANDRA PRN Reason: Protocol Stop: 10/11/16 14:01 Morphine Sulfate (Morphine) 2 mg IVP Q4H PRN PRN Reason: Pain, severe (8-10) Last Admin: 10/04/16 10:18 Dose: 2 mg Ondansetron HCl (Zofran Inj) 4 mg IVP Q4H PRN PRN Reason: Nausea/Vomiting Oxycodone/Acetaminophen (Percocet 5/325 Mg Tab) 1 tab PO Q4H PRN PRN Reason: Pain, moderate (4-7) Stop: 10/07/16 07:25 Pantoprazole Sodium (Protonix Inj) 40 mg IVP DAILY ALEJANDRA Last Admin: 10/04/16 10:01 Dose: 40 mg - Labs Labs: 10/04/16 06:40 10/04/16 06:40 PT 12.8 Seconds (9.9-11.8) H 09/29/16 23:45 INR 1.19 (0.93-1.08) H 09/29/16 23:45 APTT 27.6 Seconds (23.7-30.8) 09/29/16 23:45 - Constitutional Appears: Non-toxic, No Acute Distress - Head Exam Head Exam: NORMAL INSPECTION - ENT Exam ENT Exam: Mucous Membranes Moist - Neck Exam Neck Exam: absent: Lymphadenopathy, Meningismus - Respiratory Exam Respiratory Exam: Decreased Breath Sounds - Cardiovascular Exam Cardiovascular Exam: +S1, +S2 - GI/Abdominal Exam GI & Abdominal Exam: Soft. absent: Tenderness Assessment and Plan - Assessment and Plan (Free Text) Plan: Assessment Sepsis due to intra-abdominal infection with bowel perforation and colovesical fistula S/P exploratory laparotomy, with lysis of adhesions, modified Margaret' s resection, and abdominal washout (09/30/16, POD #4) - growing C. albicans and Pseudomonas S/P appendectomy for gangrenous appendicitis COPD Atrial fibrillation not on anticoagulation CAD degenerative joint disease vertigo history of diverticulitis Plan change Zosyn to Merrem and continue diflucan (day 5); Vancomycin was added but will check final cx results and may d/c if no MRSA is recovered from OR cx continue to monitor output from the abdominal drain and from the Thomas catheter will continue to monitor clinically
--- NOTE | 2016-10-04 18:45 | US ---
HISTORY: Leg pain and swelling. Evaluate for DVT PHYSICIAN(S): Hesham Alfaro MD. TECHNIQUE: Duplex sonography and color-flow Doppler with graded compression were used to evaluate the deep venous systems of both lower extremities. This is a limited study due to body habitus and edema. FINDINGS: The visualized deep venous systems of both lower extremities are sonographically normal and compressible. Normal wave forms and augmentation are seen. There is no sonographic evidence for deep venous thrombosis in the visualized segments of both lower extremities. IMPRESSION: No sonographic evidence for deep venous thrombosis in the visualized segments of both lower extremities. Limited study.
[2016-10-05] MEDS: Potassium Chloride 40 MEQ in Dextrose 5%/0.45% NS 1,000 ML IV SCH (05:22)
[2016-10-05] MEDS: Meropenem 1g/NS 100mL IVPB 1 GM/100 ML PIGGYBACK IVPB SCH ×3 (05:24→22:02)
[2016-10-05 07:11] LABS: BASO # 0.02 K/mm3 (0.0-2.0); BASO % 0.1 % (0.0-3.0); EOS % 0.2 % (1.5-5.0); GRAN # 13.02 (1.4-6.5); GRAN % 89.7 % (50.0-68.0); HEMOGLOBIN 10.6 g/dL (12.0-16.0); LYMPH # 0.7 (1.2-3.4); LYMPH % 4.8 % (22.0-35.0); MEAN CELL VOLUME 90.7 fl (80.0-105.0); MEAN CORPUSCULAR HEMOGLOBIN 29.9 pg (25.0-35.0); MEAN CORPUSCULAR HGB CONC 32.9 g/dl (31.0-37.0); MONO # 0.8 (0.1-0.6); MONO % 5.2 % (1.0-6.0); PLATELET COUNT 253 10^3/uL (120.0-450.0); RBC 3.55 10^6/uL (3.5-6.1); RED CELL DISTRIBUTION WIDTH 14.2 % (11.5-14.5); WHITE BLOOD COUNT 14.5 10^3/ul (4.5-11.0)
--- NOTE | 2016-10-05 07:14 | CP.PCM.PN ---
<Barbara Conti - Last Filed: 10/05/16 12:59> Subjective - Date & Time of Evaluation Date of Evaluation: 10/05/16 Time of Evaluation: 07:15 - Subjective Subjective: Progress note for Dr Mac service. No acute events overnight. Patient remains afebrile. Reported the nausea and heart burn has improved. Patient's abdominal pain has improved as well. Patient will try to participate more in PT today. Objective - Vital Signs/Intake and Output Vital Signs (last 24 hours): Temp Pulse Resp BP Pulse Ox 98.4 F 73 20 152/61 H 96 10/04/16 16:00 10/04/16 16:00 10/04/16 16:00 10/04/16 21:49 10/04/16 16:00 Intake and Output: 10/05/16 10/05/16 06:59 18:59 Intake Total 1265 Output Total 3885 Balance -2620 - Medications Medications: Current Medications Acetaminophen (Tylenol 325mg Tab) 650 mg PO Q4 PRN PRN Reason: Fever >100.4 F Albuterol/Ipratropium (Duoneb 3 Mg/0.5 Mg (3 Ml) Ud) 3 ml IH [id number] PRN PRN Reason: Shortness of Breath Last Admin: 10/04/16 10:34 Dose: 3 ml Enoxaparin Sodium (Lovenox) 40 mg SC DAILY ALEJANDRA PRN Reason: Protocol Last Admin: 10/04/16 10:01 Dose: 40 mg Furosemide (Lasix) 40 mg IVP Q12 ALEJANDRA Last Admin: 10/04/16 21:49 Dose: 40 mg Fluconazole (Diflucan Iv 400mg/200ml Ns) 200 mls @ 100 mls/hr IVPB DAILY ALEJANDRA PRN Reason: Protocol Last Admin: 10/04/16 10:05 Dose: 100 mls/hr Vancomycin HCl (Vancomycin 1gm) 1 gm in 250 mls @ 167 mls/hr IVPB Q12H ALEJANDRA PRN Reason: Protocol Last Admin: 10/04/16 19:07 Dose: 167 mls/hr Potassium Chloride 40 meq/ (Dextrose/Sodium Chloride) 1,020 mls @ 75 mls/hr IV .[id number] [facility] Last Admin: 10/05/16 05:22 Dose: 75 mls/hr Meropenem 1g/NS 100mL IVPB (Meropenem 1g/Ns 100ml Ivpb) 1 gm in 100 mls @ 100 mls/hr IVPB Q8 ALEJANDRA PRN Reason: Protocol Stop: 10/11/16 14:01 Last Admin: 10/05/16 05:24 Dose: 100 mls/hr Morphine Sulfate (Morphine) 2 mg IVP Q4H PRN PRN Reason: Pain, severe (8-10) Last Admin: 10/04/16 14:52 Dose: 2 mg Ondansetron HCl (Zofran Inj) 4 mg IVP Q4H PRN PRN Reason: Nausea/Vomiting Oxycodone/Acetaminophen (Percocet 5/325 Mg Tab) 1 tab PO Q4H PRN PRN Reason: Pain, moderate (4-7) Stop: 10/07/16 07:25 Last Admin: 10/04/16 12:05 Dose: 1 tab Pantoprazole Sodium (Protonix Inj) 40 mg IVP DAILY [facility] Last Admin: 10/04/16 10:01 Dose: 40 mg - Labs Labs: 10/04/16 06:40 10/04/16 06:40 PT 12.8 Seconds (9.9-11.8) H 09/29/16 23:45 INR 1.19 (0.93-1.08) H 09/29/16 23:45 APTT 27.6 Seconds (23.7-30.8) 09/29/16 23:45 - Constitutional Appears: No Acute Distress, Chronically Ill - Head Exam Head Exam: ATRAUMATIC, NORMAL INSPECTION, NORMOCEPHALIC - Eye Exam Eye Exam: EOMI, Normal appearance, PERRL. absent: Scleral icterus Pupil Exam: NORMAL ACCOMODATION, PERRL - ENT Exam ENT Exam: Mucous Membranes Moist - Neck Exam Neck Exam: Normal Inspection - Respiratory Exam Respiratory Exam: Rhonchi (throughout ), Wheezes (occasional expiratory wheezes. ). absent: Rales, Respiratory Distress, Stridor - Cardiovascular Exam Cardiovascular Exam: REGULAR RHYTHM, +S1, +S2. absent: Murmur - GI/Abdominal Exam GI & Abdominal Exam: Distended, Tenderness (at the incision site. ), Hypoactive Bowel Sounds Additional comments: surgical incision site with clean dressing, ostomy bag draining dark loose stool. Thomas catheter in place, draining urine and fecal material. - Extremities Exam Extremities Exam: Pedal Edema. 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 albicans and pseudomonas. Antibiotics changed to merrem by ID. BCX with no growth, leukocytosis continue to trend, afebrile. Stool for c. diff pending. Patient is also on diflucan and vanco. Patient is on percocet and morphine prn for pain. Will add standing dose duoneb, and mucomyst for worsening pulm congestion and cough. Chest PT, incentive spirometry. Patient continue to saturate between 90- 97 on 2 litter nasal cannula. Patient encouraged to try to get OOBTC today with help from PT. Will continue Lasix ivp for pulm congestion. LE U/S with no DVT. LE edema likely 2nd to hypoalbuminemia. Lovenox for dvt prophylaxis. Potassium is being repleted. Surgical wound care as per surgery. Will follow up on possibility of advancing diet. Patient is also on protonix Gi prophylaxis. Zofran prn for nausea/vomiting. Patient seen, examined, and case discussed with Dr Mac. <Abhishek Mac S - Last Filed: 10/05/16 18:56> Objective - Vital Signs/Intake and Output Vital Signs (last 24 hours): Temp Pulse Resp BP Pulse Ox 98 F 75 22 152/53 H 94 L 10/05/16 16:00 10/05/16 16:00 10/05/16 16:00 10/05/16 16:00 10/05/16 16:00 Intake and Output: 10/05/16 10/05/16 06:59 18:59 Intake Total 1265 Output Total 3885 1000 Balance -2620 -1000 - Medications Medications: Current Medications Acetaminophen (Tylenol 325mg Tab) 650 mg PO Q4 PRN PRN Reason: Fever >100.4 F Albuterol/Ipratropium (Duoneb 3 Mg/0.5 Mg (3 Ml) Ud) 3 ml IH [id number] PRN PRN Reason: Shortness of Breath Last Admin: 10/05/16 08:55 Dose: 3 ml Albuterol/Ipratropium (Duoneb 3 Mg/0.5 Mg (3 Ml) Ud) 3 ml IH [id number] ALEJANDRA Last Admin: 10/05/16 14:01 Dose: 3 ml Budesonide (Pulmicort Respules) 0.5 mg IH BIDRESP ALEJANDRA Enoxaparin Sodium (Lovenox) 40 mg SC DAILY ALEJANDRA PRN Reason: Protocol Last Admin: 10/05/16 11:48 Dose: 40 mg Furosemide (Lasix) 40 mg IVP Q12 ALEJANDRA Last Admin: 10/05/16 11:47 Dose: 40 mg Guaifenesin (Robitussin) 100 mg PO Q4H PRN PRN Reason: Cough and congestion Fluconazole (Diflucan Iv 400mg/200ml Ns) 200 mls @ 100 mls/hr IVPB DAILY [facility] PRN Reason: Protocol Last Admin: 10/05/16 11:48 Dose: 100 mls/hr Meropenem 1g/NS 100mL IVPB (Meropenem 1g/Ns 100ml Ivpb) 1 gm in 100 mls @ 100 mls/hr IVPB Q8 ALEJANDRA PRN Reason: Protocol Stop: 10/11/16 14:01 Last Admin: 10/05/16 17:00 Dose: 100 mls/hr Morphine Sulfate (Morphine) 2 mg IVP Q4H PRN PRN Reason: Pain, severe (8-10) Last Admin: 10/04/16 14:52 Dose: 2 mg Ondansetron HCl (Zofran Inj) 4 mg IVP Q4H PRN PRN Reason: Nausea/Vomiting Oxycodone/Acetaminophen (Percocet 5/325 Mg Tab) 1 tab PO Q4H PRN PRN Reason: Pain, moderate (4-7) Stop: 10/07/16 07:25 Last Admin: 10/05/16 14:30 Dose: 1 tab Pantoprazole Sodium (Protonix Inj) 40 mg IVP DAILY [facility] Last Admin: 10/05/16 11:46 Dose: 40 mg - Labs Labs: 10/05/16 06:30 10/05/16 07:00 PT 12.8 Seconds (9.9-11.8) H 09/29/16 23:45 INR 1.19 (0.93-1.08) H 09/29/16 23:45 APTT 27.6 Seconds (23.7-30.8) 09/29/16 23:45 Assessment and Plan - Assessment and Plan (Free Text) Plan: Pt seen and examined by me. Resident note reviewed and I agree with it. I spoke to Hesham, son, about the pt's diagnosis and plan of care. The pt's swelling is improving. I will D/C IVF. WCC is improving. Pt is very weak and needs PT. Spoke to Pulmonary. Ostomy care. CT head pending. Pt most likely has Delerium.
[2016-10-05] MEDS ORDERED: guaiFENesin 100 mg/5 ml Syrup UD PO PRN (07:51)
[2016-10-05 07:57] LABS: ALB/GLOB RATIO 0.9 (1.1-1.8); ALBUMIN 2.2 g/dL (3.0-4.8); ALT/SGPT 27 U/L (7-56); AST/SGOT 35 U/L (15-39); BLOOD UREA NITROGEN 17 mg/dL (7-21); CALCIUM 7.2 mg/dL (8.4-10.5); GFR AFRICAN-AMERICAN > 60; GFR NON-AFRICAN AMERICAN > 60
[2016-10-05] MEDS ORDERED: Potassium Chloride 20 mEq ER Tab PO ONE ×2 (08:05→12:00)
[2016-10-05] MEDS ORDERED: Acetylcysteine 20% Inhal Soln (4ml) IH SCH (08:15)
[2016-10-05] MEDS: Albuterol-Ipratrop 3 mg / 0.5 (3 ml) UD IH PRN (08:55)
[2016-10-05] MEDS ORDERED: Iodixanol 320 MG/ML 100 ML BOTTLE IV ONE (10:15)
--- NOTE | 2016-10-05 11:35 | CT ---
PROCEDURE: CT HEAD WITHOUT CONTRAST. HISTORY: dysartharia COMPARISON: None available. TECHNIQUE: Axial computed tomography images were obtained through the head/brain without intravenous contrast. Radiation dose: Total exam DLP = 689 mGy-cm. This CT exam was performed using one or more of the following dose reduction techniques: Automated exposure control, adjustment of the mA and/or kV according to patient size, and/or use of iterative reconstruction technique. FINDINGS: HEMORRHAGE: No intracranial hemorrhage. BRAIN: No mass effect or edema. No atrophy or chronic microvascular ischemic changes. VENTRICLES: Unremarkable. No hydrocephalus. CALVARIUM: Unremarkable. PARANASAL SINUSES: Retention cyst/polyp in the left maxillary sinus. MASTOID AIR CELLS: Unremarkable as visualized. No inflammatory changes. OTHER FINDINGS: None. IMPRESSION: No acute hemorrhage.
[2016-10-05] MEDS: Fluconazole IV 400mg/200ml NS 200 ML IVPB SCH (11:48)
[2016-10-05] MEDS: Enoxaparin 40 mg Syringe SC SCH (11:48)
--- NOTE | 2016-10-05 11:49 | CT ---
PROCEDURE: CT Chest with contrast (Pulmonary Angiogram) HISTORY: r/o rule out pe , r/o pne ,mass COMPARISON: None available. TECHNIQUE: Axial computed tomography images were obtained of the chest in the pulmonary arterial phase of enhancement. Coronal and sagittal reformatted images were created and reviewed. This CT exam was performed using one or more of the following dose reduction techniques: Automated exposure control, adjustment of the mA and/or kV according to patient size, and/or use of iterative reconstruction technique. Intravenous contrast dose: 100 cc of Omnipaque 350 Radiation dose: Total exam DLP = 709 mGy-cm. FINDINGS: PULMONARY ARTERIES: Unremarkable. No pulmonary embolism. AORTA: No acute findings. No thoracic aortic aneurysm. LUNGS: Bilateral interstitial infiltrates. PLEURAL SPACES: Small bilateral pleural effusions with compressive atelectasis at the bases. HEART: Cardiomegaly with small pericardial effusion. Small hiatal hernia. LYMPH NODES: No lymphadenopathy. BONES, CHEST WALL: Unremarkable. No fracture or destructive lesion OTHER FINDINGS: Unremarkable. IMPRESSION: Cardiomegaly with small pericardial effusion and bilateral small pleural effusions with compressive atelectasis and interstitial infiltrates compatible with CHF. No evidence of pulmonary embolism.
[2016-10-05] MEDS: Vancomycin 1gm in NS 250ml 1 GM/250 ML BAG IVPB SCH (11:52)
--- NOTE | 2016-10-05 13:25 | CP.PCM.PN ---
Subjective - Date & Time of Evaluation Date of Evaluation: 10/05/16 Time of Evaluation: 07:00 - Subjective Subjective: 89 yo F seen and evaluated at bedside. POD 5 after repeat exlap with modified Hartmans, POD 11 after initial ex-lap appendectomy. Pt feeling better today & afebrile overnight. Still complaining of difficulties sleeping and feeling warm overnight. Pain well controlled on current regiment; some localized over abdominal incision sites (5/10 in intensity) persists. Additionally complains of chest congestion and coughing throughout the nightreceiving duoneb q4h. Objective - Vital Signs/Intake and Output Vital Signs (last 24 hours): Temp Pulse Resp BP Pulse Ox 97.9 F 74 22 160/64 H 94 L 10/05/16 07:30 10/05/16 07:30 10/05/16 07:30 10/05/16 11:47 10/05/16 07:30 Intake and Output: 10/05/16 10/05/16 06:59 18:59 Intake Total 1265 Output Total 3885 Balance -2620 - Medications Medications: Current Medications Acetaminophen (Tylenol 325mg Tab) 650 mg PO Q4 PRN PRN Reason: Fever >100.4 F Albuterol/Ipratropium (Duoneb 3 Mg/0.5 Mg (3 Ml) Ud) 3 ml IH [id number] PRN PRN Reason: Shortness of Breath Last Admin: 10/05/16 08:55 Dose: 3 ml Albuterol/Ipratropium (Duoneb 3 Mg/0.5 Mg (3 Ml) Ud) 3 ml IH [id number] ALEJANDRA Budesonide (Pulmicort Respules) 0.5 mg IH BIDRESP ALEJANDRA Enoxaparin Sodium (Lovenox) 40 mg SC DAILY ALEJANDRA PRN Reason: Protocol Last Admin: 10/05/16 11:48 Dose: 40 mg Furosemide (Lasix) 40 mg IVP Q12 ALEJANDRA Last Admin: 10/05/16 11:47 Dose: 40 mg Guaifenesin (Robitussin) 100 mg PO Q4H PRN PRN Reason: Cough and congestion Fluconazole (Diflucan Iv 400mg/200ml Ns) 200 mls @ 100 mls/hr IVPB DAILY ALEJANDRA PRN Reason: Protocol Last Admin: 10/05/16 11:48 Dose: 100 mls/hr Vancomycin HCl (Vancomycin 1gm) 1 gm in 250 mls @ 167 mls/hr IVPB Q12H ALEJANDRA PRN Reason: Protocol Last Admin: 10/05/16 11:52 Dose: 167 mls/hr Meropenem 1g/NS 100mL IVPB (Meropenem 1g/Ns 100ml Ivpb) 1 gm in 100 mls @ 100 mls/hr IVPB Q8 ALEJANDRA PRN Reason: Protocol Stop: 10/11/16 14:01 Last Admin: 10/05/16 05:24 Dose: 100 mls/hr Morphine Sulfate (Morphine) 2 mg IVP Q4H PRN PRN Reason: Pain, severe (8-10) Last Admin: 10/04/16 14:52 Dose: 2 mg Ondansetron HCl (Zofran Inj) 4 mg IVP Q4H PRN PRN Reason: Nausea/Vomiting Oxycodone/Acetaminophen (Percocet 5/325 Mg Tab) 1 tab PO Q4H PRN PRN Reason: Pain, moderate (4-7) Stop: 10/07/16 07:25 Last Admin: 10/04/16 12:05 Dose: 1 tab Pantoprazole Sodium (Protonix Inj) 40 mg IVP DAILY [facility] Last Admin: 10/05/16 11:46 Dose: 40 mg - Labs Labs: 10/05/16 06:30 10/05/16 07:00 PT 12.8 Seconds (9.9-11.8) H 09/29/16 23:45 INR 1.19 (0.93-1.08) H 09/29/16 23:45 APTT 27.6 Seconds (23.7-30.8) 09/29/16 23:45 - Additional Findings Additional findings: General: NAD, calm, cooperative with exam, diaphoretic HEENT: cheeks with erythema, EOMI Heart: RRR, no murmurs Lungs: +scattered rales throughout, no tachypnea, flynn cyanosis, poor cough/ mobilization of sputum Abdomen: mid abdominal incision clean and intact, without erythema. Minimal serosanguineous fluid staining on dressing. Tenderness to palpation around incision and colostomy site. R sae output 5cc serosanguineous, L sae scant output. : nunez catheter in place, draining clear yellow urine, no hematuria noted Neuro: moving all extremities spontaneously, awake and alert Psych: normal mood and affect Notable Labs: K 3.1, WBC 14.5, Hgb 10.6, HCT 32.2 Imaging: LE U/S negative for DVT (10/04) Assessment and Plan - Assessment and Plan (Free Text) Assessment: 89 yo F s/p exlap with modified hartmans and appendectomy POD 5 with PMH of Afib , HLD, Rosacea, stents, UTI, COPD. Plan: -Continue IV Abx (merrem, vanco) and IV fluconazole -Pain control with morphine PRN -Consider added Benadryl QHS for sleep -Continue duoneb breathing treatments for congestion q4h -Continue guaifenesin 100mg q4h for cough, can consider mucomyst with breathing treatments if no relief -Monitor outputs from sae drains and colostomy qshift -Continue IVF D5 1/2NS + 40 mEq KCl -Continue Reglan and monitor for flatus/BM -Keep nunez catheter in place -Abdominal incision dressing changed at bedside- continue daily dressing changes -Further recs as per Dr. Baez Will discuss with Dr. Baez.
[2016-10-05] MEDS: Albuterol-Ipratrop 3 mg / 0.5 (3 ml) UD IH SCH ×2 (14:01→20:55)
[2016-10-05] MEDS: Oxycodone/Acetaminophen 5/325 mg Tab PO PRN (14:30)
--- NOTE | 2016-10-05 14:36 | CP.PCM.PN ---
Subjective - Date & Time of Evaluation Date of Evaluation: 10/05/16 Time of Evaluation: 11:15 - Subjective Subjective: Feeling a little better today, but still with abdominal discomfort. No fevers overnight, currently no fecal material in the urinary bag. Objective - Vital Signs/Intake and Output Vital Signs (last 24 hours): Temp Pulse Resp BP Pulse Ox 97.9 F 74 22 160/64 H 94 L 10/05/16 07:30 10/05/16 07:30 10/05/16 07:30 10/05/16 07:30 10/05/16 07:30 Intake and Output: 10/05/16 10/05/16 06:59 18:59 Intake Total 1265 Output Total 3885 Balance -2620 - Medications Medications: Current Medications Acetaminophen (Tylenol 325mg Tab) 650 mg PO Q4 PRN PRN Reason: Fever >100.4 F Acetylcysteine (Acetylcysteine 20%) 3 ml IH Q6H [facility] Last Admin: 10/05/16 08:55 Dose: 3 ml Albuterol/Ipratropium (Duoneb 3 Mg/0.5 Mg (3 Ml) Ud) 3 ml IH [id number] PRN PRN Reason: Shortness of Breath Last Admin: 10/05/16 08:55 Dose: 3 ml Albuterol/Ipratropium (Duoneb 3 Mg/0.5 Mg (3 Ml) Ud) 3 ml IH [id number] ALEJANDRA Enoxaparin Sodium (Lovenox) 40 mg SC DAILY ALEJANDRA PRN Reason: Protocol Last Admin: 10/04/16 10:01 Dose: 40 mg Furosemide (Lasix) 40 mg IVP Q12 [facility] Last Admin: 10/04/16 21:49 Dose: 40 mg Guaifenesin (Robitussin) 100 mg PO Q4H PRN PRN Reason: Cough and congestion Fluconazole (Diflucan Iv 400mg/200ml Ns) 200 mls @ 100 mls/hr IVPB DAILY ALEJANDRA PRN Reason: Protocol Last Admin: 10/04/16 10:05 Dose: 100 mls/hr Vancomycin HCl (Vancomycin 1gm) 1 gm in 250 mls @ 167 mls/hr IVPB Q12H ALEJANDRA PRN Reason: Protocol Last Admin: 10/04/16 19:07 Dose: 167 mls/hr Meropenem 1g/NS 100mL IVPB (Meropenem 1g/Ns 100ml Ivpb) 1 gm in 100 mls @ 100 mls/hr IVPB Q8 ALEJANDRA PRN Reason: Protocol Stop: 10/11/16 14:01 Last Admin: 10/05/16 05:24 Dose: 100 mls/hr Morphine Sulfate (Morphine) 2 mg IVP Q4H PRN PRN Reason: Pain, severe (8-10) Last Admin: 10/04/16 14:52 Dose: 2 mg Ondansetron HCl (Zofran Inj) 4 mg IVP Q4H PRN PRN Reason: Nausea/Vomiting Oxycodone/Acetaminophen (Percocet 5/325 Mg Tab) 1 tab PO Q4H PRN PRN Reason: Pain, moderate (4-7) Stop: 10/07/16 07:25 Last Admin: 10/04/16 12:05 Dose: 1 tab Pantoprazole Sodium (Protonix Inj) 40 mg IVP DAILY [facility] Last Admin: 10/04/16 10:01 Dose: 40 mg Potassium Chloride (K-Dur 20 Meq Er Tab) 20 meq PO ONCE ONE Stop: 10/05/16 12:01 - Labs Labs: 10/05/16 06:30 10/05/16 07:00 PT 12.8 Seconds (9.9-11.8) H 09/29/16 23:45 INR 1.19 (0.93-1.08) H 09/29/16 23:45 APTT 27.6 Seconds (23.7-30.8) 09/29/16 23:45 - Constitutional Appears: Non-toxic, No Acute Distress - Head Exam Head Exam: NORMAL INSPECTION - ENT Exam ENT Exam: Mucous Membranes Moist - Neck Exam Neck Exam: absent: Lymphadenopathy, Meningismus - Respiratory Exam Respiratory Exam: Decreased Breath Sounds - Cardiovascular Exam Cardiovascular Exam: +S1, +S2 - GI/Abdominal Exam GI & Abdominal Exam: Soft. absent: Tenderness Assessment and Plan - Assessment and Plan (Free Text) Plan: Assessment Sepsis due to intra-abdominal infection with bowel perforation and colovesical fistula S/P exploratory laparotomy, with lysis of adhesions, modified Margaret' s resection, and abdominal washout (09/30/16, POD #5) - growing C. albicans and Pseudomonas S/P appendectomy for gangrenous appendicitis COPD Atrial fibrillation not on anticoagulation CAD degenerative joint disease vertigo history of diverticulitis Plan continue Merrem and diflucan (day 6); we can d/c Vancomycin since no MRSA was recovered from OR cx continue to monitor output from the abdominal drain and from the Thomas catheter follow up further Surgery recommendations will continue to monitor clinically
--- NOTE | 2016-10-05 19:21 | CON ---
PULMONARY CONSULTATION LOCATION: Room #567. DATE: 10/05/2016 SUBJECTIVE: The patient is an 89-year-old female who recently underwent 2 surgeries. One, of the appendix and one, of the abdominal cavity. Over the last several days, she developed a progressive shortness of breath and a low grade fever. Her respiratory distress got worse today along with the development of the new onset atrial fibrillation. Etiology of this remains unclear. Her initial x-ray did not show any acute infiltrates. She has a past history of COPD, coronary artery disease, vertigo, diverticular disease, new onset atrial fibrillation this admission. SOCIAL HISTORY: No alcohol. No tobacco. No illicit drugs. No travel history. FAMILY HISTORY: Noncontributory. REVIEW OF SYSTEMS: The patient cannot give me a full history right now. She is ill and cannot give me answers to my simple questions. The chart, when she was feeling better earlier, did show that she was a former smoker. She had a history of cardiac disease. She had a history of COPD, history of vertigo, multiple cataract surgeries, a rosacea. No blood transfusions. Fractures of the left foot and spine. Unsteady gait, GERD, urinary tract infection. No anesthesia report outpatient. All other systems negative ALLERGIES: POSITIVE FOR [place] CAUSE ANAPHYLAXIS. OUTPATIENT MEDICATIONS: Unknown and not present on our flow chart. The patient was probably on albuterol but not a significant amount of bronchodilator according to the patient, one inhaler only. PHYSICAL EXAMINATION: GENERAL: The patient is comfortable, in no acute respiratory distress. VITAL SIGNS: Now the patient's blood pressure is 160/64, HR is 96, respiratory rate of 22, O2 saturation of 94% on room air, temperature 97.9, pulse is 74 on exam. HEENT: Normocephalic, atraumatic. Eyes: VIKTORIA. EOM is full. NECK: Supple. Mild jugular venous distention. CHEST: Global rhonchi, global rales. Some wheezing although minor at both sides. CARDIOVASCULAR: Regular rhythm. There is soft systolic ejection murmur. S1, S2. No gallop. No rub. ABDOMEN: Abdomen is distended, guarding, hypoactive, tenderness. EXTREMITIES: 2+ edema, 3+edema. NEUROLOGIC: No focal findings. SKIN: Dry, warm. LABORATORY DATA: White count 80518, hemoglobin 10.6, hematocrit 32. No recent blood gas. Chemistry: Sodium 139, potassium 3.1, chloride 98, CO2 is 32, glucose 115. Chest x-ray nothing new since admission discussed above. IMPRESSION: 1. Acute pulmonary distress, must consider pulmonary embolism as a different diagnosis. Due to the patient's bed rest, status post 2 surgical procedures etc. 2. Atrial fibrillation ( new onset ). 3. Obesity. 4. Mild pulmonary vascular congestion. 5. Abdominal pain with distention, further evaluation is essential. In addition the patient has underlying COPD for which she is on Xopenex. Inhaled corticoid steroids are essential. Further Lasix would be helpful as well. The overall prognosis remains guarded, but we will do the tests required right now to determine etiology including BMP, CAT scan of the chest to rule out pulmonary emboli. Continue vigorous bronchodilator medications with the history of COPD and we will follow up closely to make sure that she is stable. I suggest that the patient be returned to the intensive care unit for further evaluation and treatment. Kunal Rangel MD [email or web address]
[2016-10-05] MEDS: Budesonide 0.5 mg/2 ml Inhal Susp UD IH SCH (20:55)
[2016-10-06] MEDS: Albuterol-Ipratrop 3 mg / 0.5 (3 ml) UD IH SCH ×4 (01:42→19:55)
[2016-10-06] MEDS: Morphine 2 mg/ml ISec IVP PRN (03:28)
[2016-10-06] MEDS: Meropenem 1g/NS 100mL IVPB 1 GM/100 ML PIGGYBACK IVPB SCH ×3 (05:12→21:49)
[2016-10-06 07:01] LABS: BASO # 0.02 K/mm3 (0.0-2.0); BASO % 0.2 % (0.0-3.0); EOS % 0.2 % (1.5-5.0); GRAN # 9.78 (1.4-6.5); GRAN % 86.3 % (50.0-68.0); HEMOGLOBIN 10.6 g/dL (12.0-16.0); LYMPH # 0.8 (1.2-3.4); LYMPH % 7.4 % (22.0-35.0); MEAN CELL VOLUME 91.1 fl (80.0-105.0); MEAN CORPUSCULAR HEMOGLOBIN 29.5 pg (25.0-35.0); MEAN CORPUSCULAR HGB CONC 32.4 g/dl (31.0-37.0); MEAN PLATELET VOLUME 9.9 fl (7.0-11.0); MONO # 0.7 (0.1-0.6); MONO % 5.9 % (1.0-6.0); PLATELET COUNT 263 10^3/uL (120.0-450.0); RBC 3.59 10^6/uL (3.5-6.1); RED CELL DISTRIBUTION WIDTH 14.4 % (11.5-14.5); WHITE BLOOD COUNT 11.3 10^3/ul (4.5-11.0)
[2016-10-06] MEDS: Budesonide 0.5 mg/2 ml Inhal Susp UD IH SCH ×2 (07:18→19:55)
[2016-10-06] MEDS: Acetylcysteine 20% Inhal Soln (4ml) IH SCH ×2 (07:18→19:55)
[2016-10-06 07:31] LABS: ALB/GLOB RATIO 0.9 (1.1-1.8); ALBUMIN 2.5 g/dL (3.0-4.8); ALT/SGPT 31 U/L (7-56); AST/SGOT 30 U/L (15-39); BLOOD UREA NITROGEN 14 mg/dL (7-21); CALCIUM 7.6 mg/dL (8.4-10.5); GFR AFRICAN-AMERICAN > 60; GFR NON-AFRICAN AMERICAN > 60
--- NOTE | 2016-10-06 08:07 | CP.PCM.PN ---
<Barbara Conti - Last Filed: 10/06/16 12:21> Subjective - Date & Time of Evaluation Date of Evaluation: 10/06/16 Time of Evaluation: 07:05 - Subjective Subjective: Progress note for Dr Mac service Patient is more awake and alert today, speaking more in full sentences. Patient states the abdominal pain continues to improve. Patient was able to sit up yesterday. Patient reported she's still coughing, however the sob improved. Patient denies cp, n.v.d. Patient is requesting for food. Afebrile, output from J-p drains continue to decrease. Objective - Vital Signs/Intake and Output Vital Signs (last 24 hours): Temp Pulse Resp BP Pulse Ox 98 F 75 22 152/53 H 94 L 10/05/16 16:00 10/05/16 16:00 10/05/16 16:00 10/05/16 22:01 10/05/16 16:00 Intake and Output: 10/06/16 10/06/16 06:59 18:59 Intake Total 860 Output Total 2270 Balance -1410 - Medications Medications: Current Medications Acetaminophen (Tylenol 325mg Tab) 650 mg PO Q4 PRN PRN Reason: Fever >100.4 F Acetylcysteine (Acetylcysteine 20%) 4 ml IH BIDRESP ALEJANDRA Last Admin: 10/06/16 07:18 Dose: 4 ml Albuterol/Ipratropium (Duoneb 3 Mg/0.5 Mg (3 Ml) Ud) 3 ml IH [id number] PRN PRN Reason: Shortness of Breath Last Admin: 10/05/16 08:55 Dose: 3 ml Albuterol/Ipratropium (Duoneb 3 Mg/0.5 Mg (3 Ml) Ud) 3 ml IH [id number] ALEJANDRA Last Admin: 10/06/16 07:18 Dose: 3 ml Budesonide (Pulmicort Respules) 0.5 mg IH BIDRESP ALEJANDRA Last Admin: 10/06/16 07:18 Dose: 0.5 mg Enoxaparin Sodium (Lovenox) 40 mg SC DAILY ALEJANDRA PRN Reason: Protocol Last Admin: 10/05/16 11:48 Dose: 40 mg Furosemide (Lasix) 40 mg IVP Q12 ALEJANDRA Last Admin: 10/05/16 22:01 Dose: 40 mg Guaifenesin (Robitussin) 100 mg PO Q4H PRN PRN Reason: Cough and congestion Fluconazole (Diflucan Iv 400mg/200ml Ns) 200 mls @ 100 mls/hr IVPB DAILY [facility] PRN Reason: Protocol Last Admin: 10/05/16 11:48 Dose: 100 mls/hr Meropenem 1g/NS 100mL IVPB (Meropenem 1g/Ns 100ml Ivpb) 1 gm in 100 mls @ 100 mls/hr IVPB Q8 ALEJANDRA PRN Reason: Protocol Stop: 10/11/16 14:01 Last Admin: 10/06/16 05:12 Dose: 100 mls/hr Morphine Sulfate (Morphine) 2 mg IVP Q4H PRN PRN Reason: Pain, severe (8-10) Last Admin: 10/06/16 03:28 Dose: 2 mg Ondansetron HCl (Zofran Inj) 4 mg IVP Q4H PRN PRN Reason: Nausea/Vomiting Oxycodone/Acetaminophen (Percocet 5/325 Mg Tab) 1 tab PO Q4H PRN PRN Reason: Pain, moderate (4-7) Stop: 10/07/16 07:25 Last Admin: 10/05/16 14:30 Dose: 1 tab Pantoprazole Sodium (Protonix Inj) 40 mg IVP DAILY [facility] Last Admin: 10/05/16 11:46 Dose: 40 mg - Labs Labs: 10/06/16 06:15 10/06/16 06:15 PT 12.8 Seconds (9.9-11.8) H 09/29/16 23:45 INR 1.19 (0.93-1.08) H 09/29/16 23:45 APTT 27.6 Seconds (23.7-30.8) 09/29/16 23:45 - Constitutional Appears: No Acute Distress - Head Exam Head Exam: ATRAUMATIC, NORMAL INSPECTION, NORMOCEPHALIC - Eye Exam Eye Exam: EOMI, Normal appearance, PERRL. absent: Scleral icterus - ENT Exam ENT Exam: Mucous Membranes Moist - Neck Exam Neck Exam: Full ROM, Normal Inspection - Respiratory Exam Respiratory Exam: Decreased Breath Sounds (at the bases.), Rales, Rhonchi, NORMAL BREATHING PATTERN. absent: Wheezes, Respiratory Distress, Stridor Additional comments: Nasal cannula in place - Cardiovascular Exam Cardiovascular Exam: REGULAR RHYTHM, RRR, +S1, +S2. absent: Murmur - GI/Abdominal Exam GI & Abdominal Exam: Tenderness (at the incision site. ), Normal Bowel Sounds. absent: Distended (obese abdomen. ) Additional comments: [address], draining clear liquid, nunez in place,draining only urine , no feces. Surgical incision site with clean dressing. 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 6) Paroxysmal afib- (resolved) 7) CAD 8) COPD 9) Chronic back pain 10) Hypokalemia 11) CHF 12) Hypophosphatemia. 13) htn 14) Anemia 15) Transient delirium Plan: Patient is clinically stable. On merrem and diflucan for sepsis. Leukocytosis continue to trend, afebrile, c diff negative. Patient is being followed by ID. Potassium and phos are being repleted. Surgical wound care as per surgery. Diet advanced. Pulm following. Patient is on duoneb prn and standing dose, pulmocort and mucomyst for congestion/SOB, Lasix for CHF. Continue with PT. CTPE negative for PE. Ct head was also negative. On morphine prn for pain. Lovenox and protonix for gi/dvt prophylaxis. HTN is likely due to pain, will continue to monitor. Anemia is likely iatrogenic , will monitor h/h for now. Patient seen, examined, and case discussed with Dr Mac. <Abhishek Mac - Last Filed: 10/06/16 17:56> Objective - Vital Signs/Intake and Output Vital Signs (last 24 hours): Temp Pulse Resp BP Pulse Ox 98.4 F 73 20 150/62 94 L 10/06/16 08:00 10/06/16 08:00 10/06/16 08:00 10/06/16 12:03 10/06/16 08:00 Intake and Output: 10/06/16 10/06/16 06:59 18:59 Intake Total 860 540 Output Total 2270 1400 Balance -1410 -860 - Medications Medications: Current Medications Acetaminophen (Tylenol 325mg Tab) 650 mg PO Q4 PRN PRN Reason: Fever >100.4 F Acetylcysteine (Acetylcysteine 20%) 4 ml IH BIDRESP ALEJANDRA Last Admin: 10/06/16 07:18 Dose: 4 ml Albuterol/Ipratropium (Duoneb 3 Mg/0.5 Mg (3 Ml) Ud) 3 ml IH [id number] PRN PRN Reason: Shortness of Breath Last Admin: 10/05/16 08:55 Dose: 3 ml Albuterol/Ipratropium (Duoneb 3 Mg/0.5 Mg (3 Ml) Ud) 3 ml IH [id number] ALEJANDRA Last Admin: 10/06/16 13:11 Dose: 3 ml Budesonide (Pulmicort Respules) 0.5 mg IH BIDRESP ALEJANDRA Last Admin: 10/06/16 07:18 Dose: 0.5 mg Enoxaparin Sodium (Lovenox) 40 mg SC DAILY ALEJANDRA PRN Reason: Protocol Last Admin: 10/06/16 12:02 Dose: 40 mg Furosemide (Lasix) 40 mg IVP Q12 ALEJANDRA Last Admin: 10/06/16 12:03 Dose: 40 mg Guaifenesin (Robitussin) 100 mg PO Q4H PRN PRN Reason: Cough and congestion Fluconazole (Diflucan Iv 400mg/200ml Ns) 200 mls @ 100 mls/hr IVPB DAILY ALEJANDRA PRN Reason: Protocol Last Admin: 10/06/16 11:57 Dose: 100 mls/hr Meropenem 1g/NS 100mL IVPB (Meropenem 1g/Ns 100ml Ivpb) 1 gm in 100 mls @ 100 mls/hr IVPB Q8 ALEJANDRA PRN Reason: Protocol Stop: 10/11/16 14:01 Last Admin: 10/06/16 14:56 Dose: 100 mls/hr Potassium Phosphate 15 mmole/ (Sodium Chloride) 255 mls @ 42.5 mls/hr IVPB ONCE ONE Stop: 10/06/16 18:20 Last Admin: 10/06/16 16:46 Dose: 42.5 mls/hr Morphine Sulfate (Morphine) 2 mg IVP Q4H PRN PRN Reason: Pain, severe (8-10) Ondansetron HCl (Zofran Inj) 4 mg IVP Q4H PRN PRN Reason: Nausea/Vomiting Oxycodone/Acetaminophen (Percocet 5/325 Mg Tab) 1 tab PO Q4H PRN PRN Reason: Pain, moderate (4-7) Stop: 10/07/16 07:25 Last Admin: 10/05/16 14:30 Dose: 1 tab Pantoprazole Sodium (Protonix Inj) 40 mg IVP DAILY [facility] Last Admin: 10/06/16 11:57 Dose: 40 mg Potassium Chloride (K-Dur 20 Meq Er Tab) 40 meq PO TID ALEJANDRA Stop: 10/08/16 10:01 Last Admin: 10/06/16 17:02 Dose: 40 meq - Labs Labs: 10/06/16 06:15 10/06/16 14:00 PT 12.8 Seconds (9.9-11.8) H 09/29/16 23:45 INR 1.19 (0.93-1.08) H 09/29/16 23:45 APTT 27.6 Seconds (23.7-30.8) 09/29/16 23:45 Assessment and Plan - Assessment and Plan (Free Text) Plan: Pt was seen and examined. Resident note reviewed and I agree with it. Spoke to Hesham, son to give update. I spoke to the surgical team. Will need drains out.
[2016-10-06 08:33] LABS: MAGNESIUM 1.7 mg/dL (1.7-2.2)
[2016-10-06] MEDS ORDERED: Potassium Chloride 20 mEq ER Tab PO SCH (09:00)
--- NOTE | 2016-10-06 09:09 | CP.PCM.PN ---
Subjective - Date & Time of Evaluation Date of Evaluation: 10/06/16 Time of Evaluation: 06:40 - Subjective Subjective: Surgery Progress Note for Dr. Baez 89 yo F seen and evaluated at bedside. POD 6 after repeat exlap with modified Hartmans, POD 12 after inital ex-lap appendectomy. Afebrile overnight and admits to passing flatus. No acute events reported overnight. Still complaining of difficulties sleeping. Pain well controlled on current regiment - received one dose morphine overnight for pain control. Additionally complains of chest congestion and coughing throughout the night, receiving duoneb q4h. Objective - Vital Signs/Intake and Output Vital Signs (last 24 hours): Temp Pulse Resp BP Pulse Ox 98.4 F 73 20 172/67 H 94 L 10/06/16 08:00 10/06/16 08:00 10/06/16 08:00 10/06/16 08:00 10/06/16 08:00 Intake and Output: 10/06/16 10/06/16 06:59 18:59 Intake Total 860 Output Total 2270 Balance -1410 - Medications Medications: Current Medications Acetaminophen (Tylenol 325mg Tab) 650 mg PO Q4 PRN PRN Reason: Fever >100.4 F Acetylcysteine (Acetylcysteine 20%) 4 ml IH BIDRESP ALEJANDRA Last Admin: 10/06/16 07:18 Dose: 4 ml Albuterol/Ipratropium (Duoneb 3 Mg/0.5 Mg (3 Ml) Ud) 3 ml IH [id number] PRN PRN Reason: Shortness of Breath Last Admin: 10/05/16 08:55 Dose: 3 ml Albuterol/Ipratropium (Duoneb 3 Mg/0.5 Mg (3 Ml) Ud) 3 ml IH [id number] ALEJANDRA Last Admin: 10/06/16 07:18 Dose: 3 ml Budesonide (Pulmicort Respules) 0.5 mg IH BIDRESP ALEJANDRA Last Admin: 10/06/16 07:18 Dose: 0.5 mg Enoxaparin Sodium (Lovenox) 40 mg SC DAILY ALEJANDRA PRN Reason: Protocol Last Admin: 10/05/16 11:48 Dose: 40 mg Furosemide (Lasix) 40 mg IVP Q12 ALEJANDRA Last Admin: 10/05/16 22:01 Dose: 40 mg Guaifenesin (Robitussin) 100 mg PO Q4H PRN PRN Reason: Cough and congestion Fluconazole (Diflucan Iv 400mg/200ml Ns) 200 mls @ 100 mls/hr IVPB DAILY [facility] PRN Reason: Protocol Last Admin: 10/05/16 11:48 Dose: 100 mls/hr Meropenem 1g/NS 100mL IVPB (Meropenem 1g/Ns 100ml Ivpb) 1 gm in 100 mls @ 100 mls/hr IVPB Q8 ALEJANDRA PRN Reason: Protocol Stop: 10/11/16 14:01 Last Admin: 10/06/16 05:12 Dose: 100 mls/hr Morphine Sulfate (Morphine) 2 mg IVP Q4H PRN PRN Reason: Pain, severe (8-10) Last Admin: 10/06/16 03:28 Dose: 2 mg Ondansetron HCl (Zofran Inj) 4 mg IVP Q4H PRN PRN Reason: Nausea/Vomiting Oxycodone/Acetaminophen (Percocet 5/325 Mg Tab) 1 tab PO Q4H PRN PRN Reason: Pain, moderate (4-7) Stop: 10/07/16 07:25 Last Admin: 10/05/16 14:30 Dose: 1 tab Pantoprazole Sodium (Protonix Inj) 40 mg IVP DAILY [facility] Last Admin: 10/05/16 11:46 Dose: 40 mg Potassium Chloride (K-Dur 20 Meq Er Tab) 40 meq PO TID [facility] Stop: 10/08/16 10:01 - Labs Labs: 10/06/16 06:15 10/06/16 06:15 PT 12.8 Seconds (9.9-11.8) H 09/29/16 23:45 INR 1.19 (0.93-1.08) H 09/29/16 23:45 APTT 27.6 Seconds (23.7-30.8) 09/29/16 23:45 - Additional Findings Additional findings: General: NAD, calm, cooperative with exam, mildly diaphoretic HEENT: cheeks with erythema, EOMI Heart: RRR, no murmurs Lungs: +scattered rales throughout, no flynn cyanosis Abdomen: mid abdominal incision clean and intact, without erythema. Minimal serosanguineous fluid staining on dressing. Tenderness to palpation around incision and colostomy site. R sae output 10cc serosanguineous, L sae output 10cc serosanguineous. : nunez catheter in place draining clear yellow urine, no hematuria noted Neuro: moving all extremities spontaneously, awake and alert, dysarthric speech Psych: normal mood and affect Assessment and Plan - Assessment and Plan (Free Text) Assessment: 89 yo F s/p exlap with modified hartmans and appendectomy POD 6 with PMH of Afib, HLD, Rosacea, stents, UTI, COPD. Plan: -Continue IV Abx (merrem, vanco) and IV fluconazole -Chest x-ray to r/o PNA/aspiration; reviewed and appears unchanged from prior CXR, no signs of new aspiration -Continue duonebs q4h, guaifenesin 100mg q4h, mucomyst BID -Monitor outputs from sae drains and colostomy qshift -Continue Reglan and monitor for flatus/BM -Keep nunez catheter in place -Abdominal incision dressing changed at bedside- continue daily dressing changes -Further recs as per Dr. Baez Will discuss with Dr. Baez
--- NOTE | 2016-10-06 09:11 | RAD ---
HISTORY: Aspiration COMPARISON: 09/30/2016 FINDINGS: LUNGS: Scarring in the left lung apex. Minimal bibasilar atelectasis PLEURA: No significant pleural effusion identified, no pneumothorax apparent. CARDIOVASCULAR: Mild cardiomegaly OSSEOUS STRUCTURES: No significant abnormalities. VISUALIZED UPPER ABDOMEN: Normal. OTHER FINDINGS: None. IMPRESSION: No acute findings
[2016-10-06] MEDS ORDERED: Morphine 2 mg/ml ISec IVP PRN (09:45)
--- NOTE | 2016-10-06 11:54 | PN ---
DATE: 10/06/2016 PULMONARY PROGRESS NOTE LOCATION: Room 567, bed 2. SUBJECTIVE: It is remarkable that this 89-year-old patient is so improved in 24 hours. The patient is awake, alert, and oriented, has no complaints this morning. He is anxious to "get on moving." She had some diagnostic tests yesterday. Nothing therapeutic. Yet, she is markedly improved today. She has history of COPD, coronary artery disease, diverticular disease, and new onset atrial fibrillation. She had shortness of breath earlier, which is now resolved. She had a helical CT of the chest yesterday to look for pulmonary emboli, the results were negative. No evidence of pulmonary emboli was noted. No additional changes are noted as well. The case has been discussed with Dr. Abhishek Mac. PHYSICAL EXAMINATION: VITAL SIGNS: No significant changes in vital signs. She remains afebrile, oxygen saturation 97%, blood pressure 130/70, heart rate 70, and respiratory rate 16. NECK: Supple. No jugular venous distention. No lymphadenopathy. CHEST: Global decrease in breath sounds, some rhonchi persists, wheezing seems to have resolved. CARDIOVASCULAR: Regular rhythm, S1 and S2 with soft systolic ejection murmur at the lower left sternal border. ABDOMEN: Soft. Bowel sounds normoactive without mass, guarding, or rebound. No organomegaly. EXTREMITIES: Reveal no clubbing or cyanosis. There is still trace edema noted. Homans' sign is negative. NEUROLOGIC: No focal findings. SKIN: Dry. LYMPH NODES: Negative. Nothing palpated in the supraclavicular notch nor in the cervical, inguinal, or axillary areas. LABORATORY STUDIES: Not available yet from today. The CAT scan results were noted above. Chest x-ray done after the CAT scan for some reason shows an improvement in aeration and better diaphragmatic motion. CLINICAL IMPRESSION: 1. Respiratory distress, most likely from exacerbation of chronic obstructive pulmonary disease, since pulmonary embolism was excluded. 2. Atrial fibrillation, new onset, needs to be controlled. This may be responsible for her shortness of breath as well. 3. Obesity. 4. Pulmonary vascular congestion. 5. Abdominal distention, etiology still unclear, but improved. PLAN: Discussed at length with Dr. Mac. The patient will be monitored today and today it will be decided when she goes to rehabilitation to monitor for a longer period of time. She will be followed closely by Internal Medicine, Pulmonary and, other consultants. We will follow and decided when the patient can be discharged with you. Thank you for the opportunity to see this patient. We will follow her as necessary. Kunal Rangel MD
[2016-10-06] MEDS: Potassium Chloride 20 mEq ER Tab PO SCH ×3 (11:57→17:02)
[2016-10-06] MEDS: Fluconazole IV 400mg/200ml NS 200 ML IVPB SCH (11:57)
[2016-10-06] MEDS: Enoxaparin 40 mg Syringe SC SCH (12:02)
[2016-10-06] MEDS ORDERED: Potassium Phosphate 15 MMOLE in Sodium Chloride 0.9% 250 ML IVPB ONE (12:21)
[2016-10-06 13:33] LABS: ARTERIAL BLOOD GAS HCO3 34.3 mmol/L (21-28); ARTERIAL BLOOD GAS HEMOGLOBIN 10.6 g/dL (11.7-17.4); ARTERIAL BLOOD GAS O2 CAPACITY 14.6 mL/dl (16-24); ARTERIAL BLOOD GAS O2 CONTENT 14.2 ML/dl (15-23); ARTERIAL BLOOD GAS O2 SAT 97.4 % (95-98); ARTERIAL BLOOD GAS PCO2 41 mm/Hg (35-45); ARTERIAL BLOOD GAS PH 7.53 (7.35-7.45); ARTERIAL BLOOD GAS TCO2 35.6 mmol.L (22-28)
[2016-10-06 14:13] LABS: BLOOD UREA NITROGEN 15 mg/dL (7-21); CALCIUM 7.7 mg/dL (8.4-10.5); GFR AFRICAN-AMERICAN > 60; GFR NON-AFRICAN AMERICAN > 60
--- NOTE | 2016-10-06 17:35 | CP.PCM.PN ---
Subjective - Date & Time of Evaluation Date of Evaluation: 10/06/16 Time of Evaluation: 11:40 - Subjective Subjective: Comfortable, less abdominal pain, no fevers overnight. Objective - Vital Signs/Intake and Output Vital Signs (last 24 hours): Temp Pulse Resp BP Pulse Ox 98.4 F 73 20 172/67 H 94 L 10/06/16 08:00 10/06/16 08:00 10/06/16 08:00 10/06/16 08:00 10/06/16 08:00 Intake and Output: 10/06/16 10/06/16 06:59 18:59 Intake Total 860 Output Total 2270 Balance -1410 - Medications Medications: Current Medications Acetaminophen (Tylenol 325mg Tab) 650 mg PO Q4 PRN PRN Reason: Fever >100.4 F Acetylcysteine (Acetylcysteine 20%) 4 ml IH BIDRESP [facility] Last Admin: 10/06/16 07:18 Dose: 4 ml Albuterol/Ipratropium (Duoneb 3 Mg/0.5 Mg (3 Ml) Ud) 3 ml IH [id number] PRN PRN Reason: Shortness of Breath Last Admin: 10/05/16 08:55 Dose: 3 ml Albuterol/Ipratropium (Duoneb 3 Mg/0.5 Mg (3 Ml) Ud) 3 ml IH [id number] ALEJANDRA Last Admin: 10/06/16 07:18 Dose: 3 ml Budesonide (Pulmicort Respules) 0.5 mg IH BIDRESP [facility] Last Admin: 10/06/16 07:18 Dose: 0.5 mg Enoxaparin Sodium (Lovenox) 40 mg SC DAILY ALEJANDRA PRN Reason: Protocol Last Admin: 10/05/16 11:48 Dose: 40 mg Furosemide (Lasix) 40 mg IVP Q12 ALEJANDRA Last Admin: 10/05/16 22:01 Dose: 40 mg Guaifenesin (Robitussin) 100 mg PO Q4H PRN PRN Reason: Cough and congestion Fluconazole (Diflucan Iv 400mg/200ml Ns) 200 mls @ 100 mls/hr IVPB DAILY ALE[facility]ANDRA PRN Reason: Protocol Last Admin: 10/05/16 11:48 Dose: 100 mls/hr Meropenem 1g/NS 100mL IVPB (Meropenem 1g/Ns 100ml Ivpb) 1 gm in 100 mls @ 100 mls/hr IVPB Q8 ALEJANDRA PRN Reason: Protocol Stop: 10/11/16 14:01 Last Admin: 10/06/16 05:12 Dose: 100 mls/hr Morphine Sulfate (Morphine) 2 mg IVP Q4H PRN PRN Reason: Pain, severe (8-10) Ondansetron HCl (Zofran Inj) 4 mg IVP Q4H PRN PRN Reason: Nausea/Vomiting Oxycodone/Acetaminophen (Percocet 5/325 Mg Tab) 1 tab PO Q4H PRN PRN Reason: Pain, moderate (4-7) Stop: 10/07/16 07:25 Last Admin: 10/05/16 14:30 Dose: 1 tab Pantoprazole Sodium (Protonix Inj) 40 mg IVP DAILY [facility] Last Admin: 10/05/16 11:46 Dose: 40 mg Potassium Chloride (K-Dur 20 Meq Er Tab) 40 meq PO TID [facility] Stop: 10/08/16 10:01 - Labs Labs: 10/06/16 06:15 10/06/16 06:15 PT 12.8 Seconds (9.9-11.8) H 09/29/16 23:45 INR 1.19 (0.93-1.08) H 09/29/16 23:45 APTT 27.6 Seconds (23.7-30.8) 09/29/16 23:45 - Constitutional Appears: Non-toxic, No Acute Distress - Head Exam Head Exam: NORMAL INSPECTION - ENT Exam ENT Exam: Mucous Membranes Moist - Neck Exam Neck Exam: absent: Meningismus - Respiratory Exam Respiratory Exam: Decreased Breath Sounds - Cardiovascular Exam Cardiovascular Exam: +S1, +S2 - GI/Abdominal Exam GI & Abdominal Exam: Soft. absent: Tenderness Assessment and Plan - Assessment and Plan (Free Text) Plan: Assessment Sepsis due to intra-abdominal infection with bowel perforation and colovesical fistula S/P exploratory laparotomy, with lysis of adhesions, modified Margaret' s resection, and abdominal washout (09/30/16, POD #6) - growing C. albicans and Pseudomonas S/P appendectomy for gangrenous appendicitis COPD Atrial fibrillation not on anticoagulation CAD degenerative joint disease vertigo history of diverticulitis Plan continue Merrem and diflucan (day 7) continue to monitor output from the abdominal drain and from the Thomas catheter follow up further Surgery recommendations will continue to follow clinically
[2016-10-07 06:17] LABS: BASO # 0.01 K/mm3 (0.0-2.0); BASO % 0.1 % (0.0-3.0); EOS % 0.3 % (1.5-5.0); GRAN # 11.26 (1.4-6.5); GRAN % 86.5 % (50.0-68.0); HEMOGLOBIN 10.6 g/dL (12.0-16.0); LYMPH # 0.9 (1.2-3.4); LYMPH % 6.8 % (22.0-35.0); MEAN CELL VOLUME 92.2 fl (80.0-105.0); MEAN CORPUSCULAR HEMOGLOBIN 29.5 pg (25.0-35.0); MEAN PLATELET VOLUME 9.8 fl (7.0-11.0); MONO # 0.8 (0.1-0.6); MONO % 6.3 % (1.0-6.0); PLATELET COUNT 329 10^3/uL (120.0-450.0); RBC 3.59 10^6/uL (3.5-6.1); RED CELL DISTRIBUTION WIDTH 14.7 % (11.5-14.5)
[2016-10-07] MEDS: Meropenem 1g/NS 100mL IVPB 1 GM/100 ML PIGGYBACK IVPB SCH ×2 (06:18→21:52)
[2016-10-07] MEDS: Oxycodone/Acetaminophen 5/325 mg Tab PO PRN (06:20)
[2016-10-07 06:45] LABS: ALB/GLOB RATIO 0.8 (1.1-1.8); ALBUMIN 2.5 g/dL (3.0-4.8); ALT/SGPT 33 U/L (7-56); AST/SGOT 36 U/L (15-39); BLOOD UREA NITROGEN 15 mg/dL (7-21); CALCIUM 7.9 mg/dL (8.4-10.5); GFR AFRICAN-AMERICAN > 60; GFR NON-AFRICAN AMERICAN > 60
[2016-10-07] MEDS: Albuterol-Ipratrop 3 mg / 0.5 (3 ml) UD IH SCH ×3 (08:03→19:55)
[2016-10-07] MEDS: Acetylcysteine 20% Inhal Soln (4ml) IH SCH (08:03)
[2016-10-07] MEDS: Budesonide 0.5 mg/2 ml Inhal Susp UD IH SCH ×2 (08:03→19:55)
--- NOTE | 2016-10-07 08:08 | CP.PCM.PN ---
Subjective - Date & Time of Evaluation Date of Evaluation: 10/07/16 Time of Evaluation: 07:10 - Subjective Subjective: Patient seen and examined. No acute events overnight. Patient is resting comfortably in bed. Offers no new complaints at this time. Denies fever, chills , chest pain, SOB, abdominal pain, N/V. Objective - Vital Signs/Intake and Output Vital Signs (last 24 hours): Temp Pulse Resp BP Pulse Ox 98 F 77 20 136/65 93 L 10/06/16 18:00 10/06/16 18:00 10/06/16 18:00 10/06/16 21:48 10/06/16 18:00 Intake and Output: 10/07/16 10/07/16 06:59 18:59 Intake Total 720 Output Total 1900 Balance -1180 - Medications Medications: Current Medications Acetaminophen (Tylenol 325mg Tab) 650 mg PO Q4 PRN PRN Reason: Fever >100.4 F Acetylcysteine (Acetylcysteine 20%) 4 ml IH BIDRESP [facility] Last Admin: 10/07/16 08:03 Dose: 4 ml Albuterol/Ipratropium (Duoneb 3 Mg/0.5 Mg (3 Ml) Ud) 3 ml IH [id number] PRN PRN Reason: Shortness of Breath Last Admin: 10/05/16 08:55 Dose: 3 ml Albuterol/Ipratropium (Duoneb 3 Mg/0.5 Mg (3 Ml) Ud) 3 ml IH [id number] [facility] Last Admin: 10/07/16 08:03 Dose: 3 ml Budesonide (Pulmicort Respules) 0.5 mg IH BIDRESP [facility] Last Admin: 10/07/16 08:03 Dose: 0.5 mg Enoxaparin Sodium (Lovenox) 40 mg SC DAILY ALEJANDRA PRN Reason: Protocol Last Admin: 10/06/16 12:02 Dose: 40 mg Furosemide (Lasix) 40 mg IVP Q12 [facility] Last Admin: 10/06/16 21:48 Dose: 40 mg Guaifenesin (Robitussin) 100 mg PO Q4H PRN PRN Reason: Cough and congestion Fluconazole (Diflucan Iv 400mg/200ml Ns) 200 mls @ 100 mls/hr IVPB DAILY [facility] PRN Reason: Protocol Last Admin: 10/06/16 11:57 Dose: 100 mls/hr Meropenem 1g/NS 100mL IVPB (Meropenem 1g/Ns 100ml Ivpb) 1 gm in 100 mls @ 100 mls/hr IVPB Q8 ALEJANDRA PRN Reason: Protocol Stop: 10/11/16 14:01 Last Admin: 10/07/16 06:18 Dose: 100 mls/hr Ondansetron HCl (Zofran Inj) 4 mg IVP Q4H PRN PRN Reason: Nausea/Vomiting Pantoprazole Sodium (Protonix Inj) 40 mg IVP DAILY [facility] Last Admin: 10/06/16 11:57 Dose: 40 mg Potassium Chloride (K-Dur 20 Meq Er Tab) 40 meq PO TID [facility]LEJANDRA Stop: 10/08/16 10:01 Last Admin: 10/06/16 17:02 Dose: 40 meq Potassium Phos/Sodium Phos (Neutra-Phos) 1 pkt PO BID [facility]LEJANDRA Stop: 10/10/16 10:01 - Labs Labs: 10/07/16 05:20 10/07/16 05:20 PT 12.8 Seconds (9.9-11.8) H 09/29/16 23:45 INR 1.19 (0.93-1.08) H 09/29/16 23:45 APTT 27.6 Seconds (23.7-30.8) 09/29/16 23:45 - Additional Findings Additional findings: General: NAD, calm, cooperative with exam, diaphoretic HEENT: cheeks with erythema, EOMI Heart: RRR, no murmurs Lungs: +scattered rales throughout, no tachypnea, flynn cyanosis, poor cough/ mobilization of sputum Abdomen: mid abdominal incision clean and intact, without erythema. Minimal serosanguineous fluid staining on dressing. Tenderness to palpation around incision and colostomy site. R sae output 10cc serosanguineous, L sae 10cc purulent output. : nunez catheter in place, draining clear yellow urine, no hematuria noted Neuro: moving all extremities spontaneously, awake and alert Psych: normal mood and affect Assessment and Plan - Assessment and Plan (Free Text) Assessment: 89 yo F s/p exlap with modified hartmans and appendectomy POD 7 with PMH of Afib, HLD, Rosacea, stents, UTI, COPD -Continue IV Abx, leukocytosis noted, follow closely -Continue duonebs q4h, guaifenesin 100mg q4h, mucomyst BID -Monitor outputs from sae drains and colostomy qshift -Keep nunez catheter in place -Abdominal incision dressing changed at bedside- continue daily dressing changes -Purulent drainage noted in the left sae drain container, monitor closely -Further recs as per Dr. Baez Will discuss with attending.
--- NOTE | 2016-10-07 08:22 | PN ---
DATE: 10/07/2016 SUBJECTIVE: The patient has no complaints of any chest pain, no shortness of breath, no headache or dizziness. The patient is confused. PHYSICAL EXAMINATION: VITAL SIGNS: Temperature is 98, pulse is 77, blood pressure is 136/65, respiration is 20. GENERAL: The patient is lying in bed, flat, comfortable. HEENT: No oral lesion. Anicteric sclerae. Moist mucosa. NECK: No JVD, adenopathy, or thyromegaly. CARDIOVASCULAR: S1 and S2, regular. No murmurs, rubs, or gallops. LUNGS: Clear to auscultation bilaterally. No wheeze, rales, or rhonchi. ABDOMEN: Bowel sounds are positive, soft, nontender and nondistended. EXTREMITIES: no cyanosis, clubbing or edema. LABS: White count of 13, creatinine 0.6, hemoglobin of 10.6. Chest x-ray shows no acute findings. ASSESSMENT: 1. 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 2. Appendicitis status post appendectomy. 3. Sepsis, improved. 4. Acute kidney injury, resolved. 5. Paroxysmal atrial fibrillation, resolved. 6. Coronary artery disease. 7. Chronic obstructive pulmonary disease. 8. Chronic back pain. 9. Hypokalemia. 10. Hypophosphatemia. 11. Tricuspid regurgitation. 12. Pulmonary hypertension. 13. Hypertension. 14. Anemia. 15. Delirium. PLAN: The patient is currently comfortable. The patient has had an abdominal washout and a modified Margaret's resection, she is postop. She is not eating well. She still needs aggressive physical therapy. She has drains in place that will need to be removed. The patient had tate albicans and swelling. She is being followed by from ID, appreciate his input. The patient is on fluconazole, this will be continued. He is on Lovenox for DVT prophylaxis. The patient will continue on Lasix. The patient's rhonchi is improving. The patient's potassium has also improved. He will need phosphorus replacement. The patient is also on Robitussin as needed. He is on Zofran as needed. Abhishek Bubba, MD
[2016-10-07] MEDS: Enoxaparin 40 mg Syringe SC SCH (10:41)
[2016-10-07] MEDS: Fluconazole IV 400mg/200ml NS 200 ML IVPB SCH (10:42)
[2016-10-07] MEDS: Potassium & Sodium Phosphate PO SCH ×2 (10:43→20:18)
[2016-10-07] MEDS: Potassium Chloride 20 mEq ER Tab PO SCH ×2 (11:03→20:18)
[2016-10-07] MEDS ORDERED: Oxycodone/Acetaminophen 5/325 mg Tab PO PRN (11:35)
[2016-10-07] MEDS ORDERED: Morphine 2 mg/ml ISec IVP ONE (11:45)
--- NOTE | 2016-10-07 11:54 | PN ---
DATE: 10/07/2016 PULMONARY PROGRESS NOTE LOCATION: Room 567, bed 2. SUBJECTIVE: The patient is doing remarkably better. She is comfortable and continues to improve. There are no respiratory complaints at this time. I will not review all the notes dictated yesterday, new list to say there is no acute pulmonary emboli and she is doing better. PHYSICAL EXAMINATION: VITAL SIGNS: Stable. LUNGS: Global decrease in breath sounds, but no wheezing. CARDIOVASCULAR: Regular rhythm, soft systolic ejection murmur. No gallop or rub. ABDOMEN: Soft. Bowel sounds are normoactive. EXTREMITIES: No clubbing, cyanosis, or edema. : within normal limits NEUROLOGIC: No focal findings. SKIN: No rashes CLINICAL IMPRESSION: 1. Status post respiratory distress. 2. Atrial fibrillation, new onset. 3. Obesity. 4. Mild pulmonary vascular congestion. 5. Abdominal distention. PLAN: We will discuss again with Dr. Mac, the patient will probably be transferred to TCU. We will follow up closely with her to reassure that everything stable and we can decrease her medications further in the interim, however, I believe that she should continue on Lasix in addition to budesonide , albuterol and Duoneb. We will follow closely with you as necessary. She is not on any oral corticosteroids at this time. The acetylcysteine can off and close follow ups and I would like to discontinue that and has many dangerous of bronchospasm and I think that is the last thing that she needs at this time. We will follow closely with you. Kunal Rangel MD [email or web address]
[2016-10-07] MEDS ORDERED: Lactated Ringer's 500 ML IV SCH (12:12)
[2016-10-07] MEDS ORDERED: Morphine 2 mg/ml ISec IVP STA ×3 (12:18→18:28)
[2016-10-07] MEDS ORDERED: Iohexol 350 MG/100 ML VIAL ONE (13:02)
[2016-10-07 13:03] LABS: ARTERIAL BLOOD GAS HCO3 32.7 mmol/L (21-28); ARTERIAL BLOOD GAS O2 SAT 94.8 % (95-98); ARTERIAL BLOOD GAS PCO2 47 mm/Hg (35-45); ARTERIAL BLOOD GAS PH 7.45 (7.35-7.45); ARTERIAL BLOOD GAS TCO2 34.1 mmol.L (22-28)
--- NOTE | 2016-10-07 14:18 | CT ---
PROCEDURE: CT Abdomen and Pelvis with contrast HISTORY: Abdominal pain COMPARISON: CT 09/29/2016 TECHNIQUE: Contrast dose: 100 cc of Omni 350 Radiation dose: Total exam DLP = 1119 mGy-cm. This CT exam was performed using one or more of the following dose reduction techniques: Automated exposure control, adjustment of the mA and/or kV according to patient size, and/or use of iterative reconstruction technique. FINDINGS: LOWER THORAX: Bibasilar consolidation and small effusions LIVER: Unremarkable. No gross lesion or ductal dilatation. GALLBLADDER AND BILE DUCTS: Unremarkable. PANCREAS: Unremarkable. No gross lesion or ductal dilatation. SPLEEN: Unremarkable. ADRENALS: Unremarkable. No mass. KIDNEYS AND URETERS: Unremarkable. No hydronephrosis. No solid mass. VASCULATURE: Unremarkable. No aortic aneurysm. BOWEL: Multiple dilated loops of small bowel are seen proximally. The distal portion of the duodenum is 5.2 cm in diameter. Scattered air-fluid levels are seen. Surgical drains are seen in place. There is a small amount of ascites. There is some mesenteric edema in the left upper quadrant adjacent to the stomach. 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 APPENDIX: Not visualized PERITONEUM: Mild ascites LYMPH NODES: Unremarkable. No enlarged lymph nodes. BLADDER: Unremarkable. REPRODUCTIVE: Unremarkable. BONES: No acute fracture. OTHER FINDINGS: None. IMPRESSION: Partial proximal small bowel obstruction. Postoperative changes
[2016-10-07] MEDS ORDERED: Levalbuterol 0.63 MG/3 ML Inhal Soln UD IH ONE (14:43)
[2016-10-07 14:51] LABS: ARTERIAL BLOOD GAS HCO3 33.4 mmol/L (21-28); ARTERIAL BLOOD GAS O2 SAT 97.5 % (95-98); ARTERIAL BLOOD GAS PCO2 48 mm/Hg (35-45); ARTERIAL BLOOD GAS PH 7.45 (7.35-7.45); ARTERIAL BLOOD GAS TCO2 34.9 mmol.L (22-28)
[2016-10-07] MEDS ORDERED: Levalbuterol 0.63 MG/3 ML Inhal Soln UD ONE (14:52)
--- NOTE | 2016-10-07 14:52 | RAD ---
HISTORY: sob COMPARISON: 10/06/2016 FINDINGS: LUNGS: New patchy infiltrate in right midlung field. Persistent atelectasis at the right lung base and scarring in the left apex. PLEURA: No significant pleural effusion identified, no pneumothorax apparent. CARDIOVASCULAR: Mild cardiomegaly OSSEOUS STRUCTURES: No significant abnormalities. VISUALIZED UPPER ABDOMEN: Normal. OTHER FINDINGS: None. IMPRESSION: New patchy infiltrate in right midlung field. Persistent atelectasis at the right lung base and scarring in the left apex.
[2016-10-07 15:19] LABS: MAGNESIUM 1.7 mg/dL (1.7-2.2)
[2016-10-07] MEDS ORDERED: Sodium Chloride 0.9% 250 ML IV SCH (15:21)
--- NOTE | 2016-10-07 15:29 | CP.PCM.PN ---
Subjective - Date & Time of Evaluation Date of Evaluation: 10/07/16 Time of Evaluation: 10:45 - Subjective Subjective: Still having intermittent pains in the abdomen, occasional lightheadedness, no fevers overnight. Objective - Vital Signs/Intake and Output Vital Signs (last 24 hours): Temp Pulse Resp BP Pulse Ox 98 F 77 20 136/65 93 L 10/06/16 18:00 10/06/16 18:00 10/06/16 18:00 10/06/16 21:48 10/06/16 18:00 Intake and Output: 10/07/16 10/07/16 06:59 18:59 Intake Total 720 Output Total 1900 Balance -1180 - Medications Medications: Current Medications Acetaminophen (Tylenol 325mg Tab) 650 mg PO Q4 PRN PRN Reason: Fever >100.4 F Acetylcysteine (Acetylcysteine 20%) 4 ml IH BIDRESP [facility] Last Admin: 10/07/16 08:03 Dose: 4 ml Albuterol/Ipratropium (Duoneb 3 Mg/0.5 Mg (3 Ml) Ud) 3 ml IH [id number] PRN PRN Reason: Shortness of Breath Last Admin: 10/05/16 08:55 Dose: 3 ml Albuterol/Ipratropium (Duoneb 3 Mg/0.5 Mg (3 Ml) Ud) 3 ml IH [id number] [facility]ANDR[facility] Last Admin: 10/07/16 08:03 Dose: 3 ml Budesonide (Pulmicort Respules) 0.5 mg IH BIDRESP [facility] Last Admin: 10/07/16 08:03 Dose: 0.5 mg Enoxaparin Sodium (Lovenox) 40 mg SC DAILY [facility]LEJANDRA PRN Reason: Protocol Last Admin: 10/06/16 12:02 Dose: 40 mg Furosemide (Lasix) 40 mg IVP Q12 [facility] Last Admin: 10/06/16 21:48 Dose: 40 mg Guaifenesin (Robitussin) 100 mg PO Q4H PRN PRN Reason: Cough and congestion Fluconazole (Diflucan Iv 400mg/200ml Ns) 200 mls @ 100 mls/hr IVPB DAILY [facility]LEJANDR[facility] PRN Reason: Protocol Last Admin: 10/06/16 11:57 Dose: 100 mls/hr Meropenem 1g/NS 100mL IVPB (Meropenem 1g/Ns 100ml Ivpb) 1 gm in 100 mls @ 100 mls/hr IVPB Q8 [facility]LEJANDRA PRN Reason: Protocol Stop: 10/11/16 14:01 Last Admin: 10/07/16 06:18 Dose: 100 mls/hr Ondansetron HCl (Zofran Inj) 4 mg IVP Q4H PRN PRN Reason: Nausea/Vomiting Pantoprazole Sodium (Protonix Inj) 40 mg IVP DAILY [facility] Last Admin: 10/06/16 11:57 Dose: 40 mg Potassium Chloride (K-Dur 20 Meq Er Tab) 40 meq PO TID [facility] Stop: 10/08/16 10:01 Last Admin: 10/06/16 17:02 Dose: 40 meq Potassium Phos/Sodium Phos (Neutra-Phos) 1 pkt PO BID [facility] Stop: 10/10/16 10:01 - Labs Labs: 10/07/16 05:20 10/07/16 05:20 PT 12.8 Seconds (9.9-11.8) H 09/29/16 23:45 INR 1.19 (0.93-1.08) H 09/29/16 23:45 APTT 27.6 Seconds (23.7-30.8) 09/29/16 23:45 - Constitutional Appears: Other (somewhat lightheaded) - Head Exam Head Exam: NORMAL INSPECTION - ENT Exam ENT Exam: Mucous Membranes Moist - Neck Exam Neck Exam: absent: Meningismus - Respiratory Exam Respiratory Exam: Decreased Breath Sounds - Cardiovascular Exam Cardiovascular Exam: +S1, +S2 - GI/Abdominal Exam GI & Abdominal Exam: Soft. 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 albicans and Pseudomonas S/P appendectomy for gangrenous appendicitis COPD Atrial fibrillation not on anticoagulation CAD degenerative joint disease vertigo history of diverticulitis Plan continue Merrem and diflucan (day 8) continue to monitor output from the abdominal drain and from the Thomas catheter follow up further Surgery recommendations will continue to follow clinically
[2016-10-07] MEDS ORDERED: Lactated Ringer's 1,000 ML IV SCH ×2 (15:33→18:37)
--- NOTE | 2016-10-07 16:00 | CARD ---
APPROVED REPORT EKG Measurement Heart [id number] TN P3 [id number] <Conclusion> Possible Sinus tach VS Atrial flutter with 2:1 AV conduction Left posterior fascicular block Possible Inferior infarct, age undetermined base line artefact . Pl repeat
--- NOTE | 2016-10-07 16:57 | CP.PCM.PN ---
Subjective - Date & Time of Evaluation Date of Evaluation: 10/07/16 Time of Evaluation: 14:35 - Subjective Subjective: Pt seen stat at the request of her RN for SOB and high HR after she had a CT of the Abdomen and Pelvis a short while ago It is reported to show partial small bowel obstruction.Pt was medicated with morphine before she went for the cat scan Pt is somewhat lethargic,is able to answer occ questions with one word answers. She denies chest pain,calf pain,has a little abdominal pain. Pt has had appendectomy,S/P exploratory lap for perforation of sigmoid and colovesical fistula,had modified Day resection. VS:BP 140/61 Rectal [id number] HR 129 O2 sat on 4L O2 by NC 94% RR 28 Cardiac moniter reviewed,it shows Aflutter,rate in the 120s Labs reviewed. PMH: COPD AFib,DJD. Objective - Vital Signs/Intake and Output Vital Signs (last 24 hours): Temp Pulse Resp BP Pulse Ox 98 F 73 24 140/98 H 94 L 10/07/16 08:00 10/07/16 08:00 10/07/16 08:00 10/07/16 10:39 10/07/16 08:00 Intake and Output: 10/07/16 10/07/16 06:59 18:59 Intake Total 720 Output Total 1900 Balance -1180 - Medications Medications: Current Medications Acetaminophen (Tylenol 325mg Tab) 650 mg PO Q4 PRN PRN Reason: Fever >100.4 F Albuterol/Ipratropium (Duoneb 3 Mg/0.5 Mg (3 Ml) Ud) 3 ml IH [id number] PRN PRN Reason: Shortness of Breath Last Admin: 10/05/16 08:55 Dose: 3 ml Albuterol/Ipratropium (Duoneb 3 Mg/0.5 Mg (3 Ml) Ud) 3 ml IH [id number] ALEJANDRA Last Admin: 10/07/16 13:17 Dose: 3 ml Budesonide (Pulmicort Respules) 0.5 mg IH BIDRESP [facility] Last Admin: 10/07/16 08:03 Dose: 0.5 mg Enoxaparin Sodium (Lovenox) 40 mg SC DAILY ALEJANDRA PRN Reason: Protocol Last Admin: 10/07/16 10:41 Dose: 40 mg Furosemide (Lasix) 40 mg IVP Q12 [facility] Last Admin: 10/07/16 10:39 Dose: 40 mg Guaifenesin (Robitussin) 100 mg PO Q4H PRN PRN Reason: Cough and congestion Fluconazole (Diflucan Iv 400mg/200ml Ns) 200 mls @ 100 mls/hr IVPB DAILY ALEJANDRA PRN Reason: Protocol Last Admin: 10/07/16 10:42 Dose: 100 mls/hr Meropenem 1g/NS 100mL IVPB (Meropenem 1g/Ns 100ml Ivpb) 1 gm in 100 mls @ 100 mls/hr IVPB Q8 ALEJANDRA PRN Reason: Protocol Stop: 10/11/16 14:01 Last Admin: 10/07/16 06:18 Dose: 100 mls/hr Ondansetron HCl (Zofran Inj) 4 mg IVP Q4H PRN PRN Reason: Nausea/Vomiting Oxycodone/Acetaminophen (Percocet 5/325 Mg Tab) 1 tab PO Q4H PRN PRN Reason: Pain, moderate (4-7) Stop: 10/10/16 11:36 Pantoprazole Sodium (Protonix Inj) 40 mg IVP DAILY [facility] Last Admin: 10/07/16 10:39 Dose: 40 mg Potassium Chloride (K-Dur 20 Meq Er Tab) 40 meq PO TID [facility] Stop: 10/08/16 10:01 Last Admin: 10/07/16 11:03 Dose: Not Given Potassium Phos/Sodium Phos (Neutra-Phos) 1 pkt PO BID [facility] Stop: 10/10/16 10:01 Last Admin: 10/07/16 10:43 Dose: 1 pkt - Labs Labs: 10/07/16 05:20 10/07/16 05:20 PT 12.8 Seconds (9.9-11.8) H 09/29/16 23:45 INR 1.19 (0.93-1.08) H 09/29/16 23:45 APTT 27.6 Seconds (23.7-30.8) 09/29/16 23:45 - Constitutional Appears: In Acute Distress (in mild respiratory distress(tachypnea noted)) - Head Exam Head Exam: ATRAUMATIC, NORMAL INSPECTION, NORMOCEPHALIC - Eye Exam Eye Exam: PERRL - ENT Exam ENT Exam: Mucous Membranes Moist - Neck Exam Neck Exam: Normal Inspection - Respiratory Exam Respiratory Exam: Decreased Breath Sounds (at both bases), Wheezes (occ scattered wheezes) - Cardiovascular Exam Cardiovascular Exam: Tachycardia, REGULAR RHYTHM - GI/Abdominal Exam GI & Abdominal Exam: Distended, Soft, Tenderness (diffusely tender), Normal Bowel Sounds Additional comments: Functional Colostomy bag and 2 drains noted. - Extremities Exam Extremities Exam: Pedal Edema (trace pedal edema noted). absent: Calf Tenderness - Neurological Exam Neurological Exam: Altered (somewhat lethargic,but easily arousable,answers questions with one word answers occasionally.) - Psychiatric Exam Psychiatric exam: Flat Affect - Skin Skin Exam: Dry, Warm Assessment and Plan - Assessment and Plan (Free Text) Assessment: Aflutter Shortness of breath Plan: EKG done stat shows aflutter rate of 120/min ABG on 4L O2 by NC shows PO2 of 73. CXray portable ordered stat Blood drawn for tests ordered Discuused with Dr Mac,consult requested with Dr Bo Clayton. Small bolus of NS ordered,pending lab results Will notify [employer] 5:30 pm Pt's HR was 112/min moniter showed NSR. Suddenly HR went up to 140s, moniter shows Aflutter.Cxray reported to show RML infiltrate. Discussed with Dr Bo clayton.IV fluids and Ekg ordered stat Plan on giving Cardizem
[2016-10-07 17:10] LABS: VENOUS BLOOD GAS BASE EXCESS 10.4 mmol/L (0.0-2.0); VENOUS BLOOD GAS PO2 182 mm/Hg (30-55); VENOUS BLOOD PH 7.47 (7.32-7.43)
--- NOTE | 2016-10-07 17:18 | CP.PCM.PN ---
Subjective - Date & Time of Evaluation Date of Evaluation: 10/07/16 Time of Evaluation: 13:00 - Subjective Subjective: Called by the house MD to halp evaluate HR. The patient is well known to the ICU staff from multiple surgeries and complications. She was dealing with pain earlier this morning and was in need on medications. CT abd was done to evaluate the patient and was found to have a possible SBO? After pain medications were given , the patient's HR lowered to 100-110's and she looked more comfortable. Objective - Vital Signs/Intake and Output Vital Signs (last 24 hours): Temp Pulse Resp BP Pulse Ox 98 F 73 24 140/98 H 94 L 10/07/16 08:00 10/07/16 08:00 10/07/16 08:00 10/07/16 10:39 10/07/16 08:00 Intake and Output: 10/07/16 10/07/16 06:59 18:59 Intake Total 720 Output Total 1900 Balance -1180 - Medications Medications: Current Medications Acetaminophen (Tylenol 325mg Tab) 650 mg PO Q4 PRN PRN Reason: Fever >100.4 F Albuterol/Ipratropium (Duoneb 3 Mg/0.5 Mg (3 Ml) Ud) 3 ml IH [id number] PRN PRN Reason: Shortness of Breath Last Admin: 10/05/16 08:55 Dose: 3 ml Albuterol/Ipratropium (Duoneb 3 Mg/0.5 Mg (3 Ml) Ud) 3 ml IH [id number] [facility] Last Admin: 10/07/16 13:17 Dose: 3 ml Budesonide (Pulmicort Respules) 0.5 mg IH BIDRESP [facility] Last Admin: 10/07/16 08:03 Dose: 0.5 mg Enoxaparin Sodium (Lovenox) 40 mg SC DAILY ALEJANDRA PRN Reason: Protocol Last Admin: 10/07/16 10:41 Dose: 40 mg Furosemide (Lasix) 40 mg IVP Q12 [facility] Last Admin: 10/07/16 10:39 Dose: 40 mg Guaifenesin (Robitussin) 100 mg PO Q4H PRN PRN Reason: Cough and congestion Fluconazole (Diflucan Iv 400mg/200ml Ns) 200 mls @ 100 mls/hr IVPB DAILY ALEJANDRA PRN Reason: Protocol Last Admin: 10/07/16 10:42 Dose: 100 mls/hr Meropenem 1g/NS 100mL IVPB (Meropenem 1g/Ns 100ml Ivpb) 1 gm in 100 mls @ 100 mls/hr IVPB Q8 ALEJANDRA PRN Reason: Protocol Stop: 10/11/16 14:01 Last Admin: 10/07/16 06:18 Dose: 100 mls/hr Sodium Chloride (Sodium Chloride 0.9%) 250 mls @ 100 mls/hr IV .Q2H30M [facility] Stop: 10/07/16 17:30 Lactated Ringer's (Lactated Ringer's) 1,000 mls @ 75 mls/hr IV .[id number] [facility] Ondansetron HCl (Zofran Inj) 4 mg IVP Q4H PRN PRN Reason: Nausea/Vomiting Oxycodone/Acetaminophen (Percocet 5/325 Mg Tab) 1 tab PO Q4H PRN PRN Reason: Pain, moderate (4-7) Stop: 10/10/16 11:36 Pantoprazole Sodium (Protonix Inj) 40 mg IVP DAILY [facility] Last Admin: 10/07/16 10:39 Dose: 40 mg Potassium Chloride (K-Dur 20 Meq Er Tab) 40 meq PO TID [facility] Stop: 10/08/16 10:01 Last Admin: 10/07/16 11:03 Dose: Not Given Potassium Phos/Sodium Phos (Neutra-Phos) 1 pkt PO BID [facility] Stop: 10/10/16 10:01 Last Admin: 10/07/16 10:43 Dose: 1 pkt - Labs Labs: 10/07/16 05:20 10/07/16 05:20 PT 12.8 Seconds (9.9-11.8) H 09/29/16 23:45 INR 1.19 (0.93-1.08) H 09/29/16 23:45 APTT 27.6 Seconds (23.7-30.8) 09/29/16 23:45 - Head Exam Head Exam: ATRAUMATIC, NORMAL INSPECTION - Eye Exam Eye Exam: Normal appearance Pupil Exam: NORMAL ACCOMODATION - ENT Exam ENT Exam: Mucous Membranes Moist - Neck Exam Neck Exam: Full ROM - Respiratory Exam Respiratory Exam: Decreased Breath Sounds - Cardiovascular Exam Cardiovascular Exam: Tachycardia, REGULAR RHYTHM - GI/Abdominal Exam GI & Abdominal Exam: Soft, Tenderness, Normal Bowel Sounds - Neurological Exam Neurological Exam: Alert, Awake, Oriented x3 Assessment and Plan - Assessment and Plan (Free Text) Assessment: 89 y/o F S/P multiple bowel surgeries from complicated Appendicitis . Called for tachycardia, SOB . Likely the pain has caused her to have elevated HR , (Sinus tachycardia) . Would need adequate pain regimen as determined by the surgical team. Small IV fluid bolus would also be needed. Continue Iv abx per ID. If resp status worsens or increased WOB, BIPAP would be an option as long as there is adequate mental status. cc time 55 min
[2016-10-07] MEDS ORDERED: Sodium Chloride 0.9% 1,000 ML IV SCH (17:30)
[2016-10-07] MEDS ORDERED: Sodium Chloride 0.9% 500 ML IV STA ×3 (18:54→23:45)
[2016-10-07 19:29] LABS: ALBUMIN 2.6 g/dL (3.0-4.8); CALCIUM 8.2 mg/dL (8.4-10.5); MEAN CELL VOLUME 93.2 fl (80.0-105.0); MEAN CORPUSCULAR HEMOGLOBIN 30.4 pg (25.0-35.0); MEAN CORPUSCULAR HGB CONC 32.6 g/dl (31.0-37.0); MEAN PLATELET VOLUME 10.3 fl (7.0-11.0); PLATELET COUNT 409 10^3/uL (120.0-450.0); RBC 4.38 10^6/uL (3.5-6.1); RED CELL DISTRIBUTION WIDTH 14.7 % (11.5-14.5); WHITE BLOOD COUNT 19.2 10^3/ul (4.5-11.0)
[2016-10-07 19:30] LABS: ALB/GLOB RATIO 0.8 (1.1-1.8)
--- NOTE | 2016-10-07 20:10 | CP.PCM.PN ---
Subjective - Date & Time of Evaluation Date of Evaluation: 10/07/16 Time of Evaluation: 20:04 - Subjective Subjective: F/U as endorsed by . Family members have power of patent attorney .Will call for DNR order. Patient seen. Hazel. BP84/56 HR:136/min. PE: Moaning. HEENT:JVD-Neg. LUNGS:equal air entry b/l ,clear. ABD:Soft,?mild distension. A/P :Septic shock. NS bolus of 500 CC. Son Rene showed me Power of [employer] Hand , copy of which is on chart,and told that he wants Ms. Rasmussen to be DNR. Spoke to , and got an order for DNR. EKG - S. Tachycardia, V2,V3 subendocardial changes , New? Troponin, d-dimer ordered to r/o pe as cause of hypotension although pt is on lovenox. Objective - Vital Signs/Intake and Output Vital Signs (last 24 hours): Temp Pulse Resp BP Pulse Ox 98.5 F 145 H 22 145/121 H 94 L 10/07/16 17:32 10/07/16 18:09 10/07/16 17:32 10/07/16 18:09 10/07/16 08:00 - Medications Medications: Current Medications Acetaminophen (Tylenol 325mg Tab) 650 mg PO Q4 PRN PRN Reason: Fever >100.4 F Acetaminophen (Tylenol 650 Mg Supp) 650 mg RC Q4H PRN PRN Reason: Fever >100.4 F Albuterol/Ipratropium (Duoneb 3 Mg/0.5 Mg (3 Ml) Ud) 3 ml IH [id number] PRN PRN Reason: Shortness of Breath Last Admin: 10/05/16 08:55 Dose: 3 ml Albuterol/Ipratropium (Duoneb 3 Mg/0.5 Mg (3 Ml) Ud) 3 ml IH [id number] ALEJANDRA Last Admin: 10/07/16 19:55 Dose: 3 ml Budesonide (Pulmicort Respules) 0.5 mg IH BIDRESP [facility] Last Admin: 10/07/16 19:55 Dose: 0.5 mg Enoxaparin Sodium (Lovenox) 40 mg SC DAILY [facility] PRN Reason: Protocol Last Admin: 10/07/16 10:41 Dose: 40 mg Furosemide (Lasix) 40 mg IVP Q12 [facility]LE[facility]ANDR[facility] Last Admin: 10/07/16 10:39 Dose: 40 mg Guaifenesin (Robitussin) 100 mg PO Q4H PRN PRN Reason: Cough and congestion Fluconazole (Diflucan Iv 400mg/200ml Ns) 200 mls @ 100 mls/hr IVPB DAILY ALEJANDRA PRN Reason: Protocol Last Admin: 10/07/16 10:42 Dose: 100 mls/hr Meropenem 1g/NS 100mL IVPB (Meropenem 1g/Ns 100ml Ivpb) 1 gm in 100 mls @ 100 mls/hr IVPB Q8 ALEJANDRA PRN Reason: Protocol Stop: 10/11/16 14:01 Last Admin: 10/07/16 06:18 Dose: 100 mls/hr Sodium Chloride (Sodium Chloride 0.9%) 1,000 mls @ 125 mls/hr IV .Q8H ALEJANDRA Sodium Chloride (Sodium Chloride 0.9%) 500 mls @ 999 mls/hr IV .Q31M [facility] Stop: 10/07/16 20:32 Morphine Sulfate (Morphine) 4 mg IVP Q4H PRN PRN Reason: Pain, severe (8-10) Ondansetron HCl (Zofran Inj) 4 mg IVP Q4H PRN PRN Reason: Nausea/Vomiting Oxycodone/Acetaminophen (Percocet 5/325 Mg Tab) 1 tab PO Q4H PRN PRN Reason: Pain, moderate (4-7) Stop: 10/10/16 11:36 Pantoprazole Sodium (Protonix Inj) 40 mg IVP DAILY [facility] Last Admin: 10/07/16 10:39 Dose: 40 mg Potassium Chloride (K-Dur 20 Meq Er Tab) 40 meq PO TID [facility] Stop: 10/08/16 10:01 Last Admin: 10/07/16 11:03 Dose: Not Given Potassium Phos/Sodium Phos (Neutra-Phos) 1 pkt PO BID [facility] Stop: 10/10/16 10:01 Last Admin: 10/07/16 10:43 Dose: 1 pkt - Labs Labs: 10/07/16 05:20 10/07/16 19:15 PT 12.8 Seconds (9.9-11.8) H 09/29/16 23:45 INR 1.19 (0.93-1.08) H 09/29/16 23:45 APTT 27.6 Seconds (23.7-30.8) 09/29/16 23:45
[2016-10-07 20:23] LABS: HEMOGLOBIN 13.3 g/dL (12.0-16.0)
[2016-10-07] MEDS: Sodium Chloride 0.9% 1,000 ML IV SCH (20:40)
[2016-10-07] MEDS ORDERED: Metoprolol 1 mg/ml Inj IVP STA (20:41)
[2016-10-07] MEDS: Morphine 4 mg/ml ISec IVP PRN (21:13)
[2016-10-07 23:17] LABS: BAND 12 % (0-2); LYMPHOCYTE 6 % (22.0-35.0); MONOCYTE 2 % (1.0-6.0); NEUTROPHIL 80 % (50.0-70.0); PLATELET ESTIMATE NORMAL (NORMAL)
[2016-10-08 00:28] VITALS: RESP 18
[2016-10-08] MEDS: Morphine 4 mg/ml ISec IVP PRN ×3 (00:56→08:20)
[2016-10-08] MEDS: Albuterol-Ipratrop 3 mg / 0.5 (3 ml) UD IH SCH ×4 (01:00→13:32)
--- NOTE | 2016-10-08 03:18 | CP.PCM.PN ---
Subjective - Date & Time of Evaluation Date of Evaluation: 10/08/16 Time of Evaluation: 03:15 - Subjective Subjective: Troponin -0.02 D-dimer-4.35, patient is septic. BP was still low and heart rate was in 140s'. Two more fluid boluses of NS, 500 CC x 2 were given. Patient was agitated and family members wanted her to have sedation. Ativan 0.25 mg IV x 2 was given. BP had come up.121/55 (2.28AM.) Objective - Vital Signs/Intake and Output Vital Signs (last 24 hours): Temp Pulse Resp BP Pulse Ox 100.1 F H 99 H 18 121/55 L 94 L 10/08/16 00:01 10/08/16 02:00 10/08/16 00:01 10/08/16 02:28 10/08/16 00:01 - Medications Medications: Current Medications Acetaminophen (Tylenol 325mg Tab) 650 mg PO Q4 PRN PRN Reason: Fever >100.4 F Acetaminophen (Tylenol 650 Mg Supp) 650 mg RC Q4H PRN PRN Reason: Fever >100.4 F Albuterol/Ipratropium (Duoneb 3 Mg/0.5 Mg (3 Ml) Ud) 3 ml IH [id number] PRN PRN Reason: Shortness of Breath Last Admin: 10/05/16 08:55 Dose: 3 ml Albuterol/Ipratropium (Duoneb 3 Mg/0.5 Mg (3 Ml) Ud) 3 ml IH [id number] [facility] Last Admin: 10/08/16 01:00 Dose: 3 ml Budesonide (Pulmicort Respules) 0.5 mg IH BIDRESP [facility] Last Admin: 10/07/16 19:55 Dose: 0.5 mg Enoxaparin Sodium (Lovenox) 40 mg SC DAILY [facility] PRN Reason: Protocol Last Admin: 10/07/16 10:41 Dose: 40 mg Furosemide (Lasix) 40 mg IVP Q12 [facility] Last Admin: 10/08/16 02:28 Dose: 40 mg Guaifenesin (Robitussin) 100 mg PO Q4H PRN PRN Reason: Cough and congestion Fluconazole (Diflucan Iv 400mg/200ml Ns) 200 mls @ 100 mls/hr IVPB DAILY [facility]LE[facility] PRN Reason: Protocol Last Admin: 10/07/16 10:42 Dose: 100 mls/hr Meropenem 1g/NS 100mL IVPB (Meropenem 1g/Ns 100ml Ivpb) 1 gm in 100 mls @ 100 mls/hr IVPB Q8 [facility]LE[facility]ANDR[facility] PRN Reason: Protocol Stop: 10/11/16 14:01 Last Admin: 10/07/16 21:52 Dose: 100 mls/hr Sodium Chloride (Sodium Chloride 0.9%) 1,000 mls @ 125 mls/hr IV .Q8H [facility] Last Admin: 10/07/16 20:40 Dose: 125 mls/hr Morphine Sulfate (Morphine) 4 mg IVP Q4H PRN PRN Reason: Pain, severe (8-10) Last Admin: 10/08/16 00:56 Dose: 4 mg Ondansetron HCl (Zofran Inj) 4 mg IVP Q4H PRN PRN Reason: Nausea/Vomiting Oxycodone/Acetaminophen (Percocet 5/325 Mg Tab) 1 tab PO Q4H PRN PRN Reason: Pain, moderate (4-7) Stop: 10/10/16 11:36 Pantoprazole Sodium (Protonix Inj) 40 mg IVP DAILY [facility] Last Admin: 10/07/16 10:39 Dose: 40 mg Potassium Chloride (K-Dur 20 Meq Er Tab) 40 meq PO TID [facility] Stop: 10/08/16 10:01 Last Admin: 10/07/16 20:18 Dose: Not Given Potassium Phos/Sodium Phos (Neutra-Phos) 1 pkt PO BID [facility] Stop: 10/10/16 10:01 Last Admin: 10/07/16 20:18 Dose: Not Given - Labs Labs: 10/07/16 19:15 10/07/16 19:15 PT 12.8 Seconds (9.9-11.8) H 09/29/16 23:45 INR 1.19 (0.93-1.08) H 09/29/16 23:45 APTT 27.6 Seconds (23.7-30.8) 09/29/16 23:45
[2016-10-08] MEDS: Albuterol-Ipratrop 3 mg / 0.5 (3 ml) UD IH PRN (04:13)
[2016-10-08] MEDS: Meropenem 1g/NS 100mL IVPB 1 GM/100 ML PIGGYBACK IVPB SCH ×2 (04:40→05:00)
[2016-10-08] MEDS: Sodium Chloride 0.9% 1,000 ML IV SCH (04:44)
[2016-10-08 05:23] LABS: HEMOGLOBIN 12.3 g/dL (12.0-16.0); MEAN CELL VOLUME 93.4 fl (80.0-105.0); MEAN CORPUSCULAR HEMOGLOBIN 30.1 pg (25.0-35.0); MEAN CORPUSCULAR HGB CONC 32.3 g/dl (31.0-37.0); MEAN PLATELET VOLUME 10.3 fl (7.0-11.0); PLATELET COUNT 373 10^3/uL (120.0-450.0); RBC 4.08 10^6/uL (3.5-6.1); WHITE BLOOD COUNT 22.6 10^3/ul (4.5-11.0)
[2016-10-08 05:50] LABS: TROPONIN I 0.03 ng/mL
[2016-10-08 06:08] LABS: ALB/GLOB RATIO 0.9 (1.1-1.8); ALBUMIN 2.4 g/dL (3.0-4.8); CALCIUM 7.8 mg/dL (8.4-10.5)
[2016-10-08 06:11] VITALS: O2SAT 89
[2016-10-08 06:30] LABS: NEUTROPHIL 80 % (50.0-70.0)
[2016-10-08 06:31] LABS: BAND 11 % (0-2); LYMPHOCYTE 6 % (22.0-35.0); MONOCYTE 3 % (1.0-6.0)
[2016-10-08 06:32] LABS: PLATELET ESTIMATE NORMAL (NORMAL)
[2016-10-08] MEDS ORDERED: Vancomycin 1.5 GM in Sodium Chloride 0.9% 500 ML IVPB ONE (07:00)
[2016-10-08] MEDS ORDERED: Morphine PCA 1 mg/ml (25ml) 25 ML IV PRN (07:19)
[2016-10-08 07:41] LABS: PH,URINE 5.5 (4.7-8.0); URINE BILIRUBIN NEGATIVE (NEGATIVE); URINE BLOOD MODERATE (NEGATIVE); URINE GLUCOSE (UA) NEGATIVE (NEGATIVE); URINE LEUKOCYTE ESTERASE MODERATE Leu/uL (NEGATIVE); URINE NITRATE NEGATIVE (NEGATIVE); URINE PROTEIN TRACE mg/dL (<30 mg/dL); URINE UROBILINOGEN 0.2 E.U./dL (<1 E.U./dL)
[2016-10-08 07:58] LABS: URINE APPEARANCE SL CLOUDY (CLEAR); URINE COLOR YELLOW (YELLOW)
[2016-10-08 08:02] LABS: URINE RBC 0 - 2 /hpf (0-2); URINE WBC TNTC /hpf (0-6)
[2016-10-08 08:03] LABS: URINE BACTERIA FEW (NEG); URINE HYALINE CAST 0 - 2 /hpf
--- NOTE | 2016-10-08 08:12 | RAD ---
HISTORY: abd distension, pain COMPARISON: Comparison is made to 09/30/2016 FINDINGS: BOWEL: Mildly dilated bowel loops at the mid and lower abdomen are noted. Postsurgical changes are again seen at the lower abdomen. BONES: Advanced degenerative changes P OTHER FINDINGS: There is catheter overlying the lower abdomen. IMPRESSION: Mildly dilated bowel loops at the mid and lower abdomen. The possibility of bowel ileus or obstruction is not totally excluded.
--- NOTE | 2016-10-08 08:17 | CP.PCM.PN ---
Subjective - Date & Time of Evaluation Date of Evaluation: 10/08/16 Time of Evaluation: 07:00 - Subjective Subjective: Pt S&E at bedside. Pt with minimal verbal responses so ROS difficult to obtain. Pt started having abdominal and left mid back pain with tachypnea, tachycardia, and hypotension yesterday afternoon. Patient stabilized, given morphine for pain , and moved to TCU yesterday afternoon. Pt had fever of 100-101 and tachycardia overnight and BP stable per nursing. Lasix ordered and fluids held this morning 2/2 change in breathing with signs of fluid in the lungs. Objective - Vital Signs/Intake and Output Vital Signs (last 24 hours): Temp Pulse Resp BP Pulse Ox 101 F H 105 H 18 122/65 89 L 10/08/16 06:22 10/08/16 06:00 10/08/16 06:00 10/08/16 06:00 10/08/16 06:00 Intake and Output: 10/08/16 10/08/16 06:59 18:59 Intake Total 2000 Output Total 600 Balance 1400 - Medications Medications: Current Medications Acetaminophen (Tylenol 650 Mg Supp) 650 mg RC Q4H PRN PRN Reason: Fever >100.4 F Last Admin: 10/08/16 06:22 Dose: 650 mg Albuterol/Ipratropium (Duoneb 3 Mg/0.5 Mg (3 Ml) Ud) 3 ml IH [id number] PRN PRN Reason: Shortness of Breath Last Admin: 10/08/16 04:13 Dose: 3 ml Albuterol/Ipratropium (Duoneb 3 Mg/0.5 Mg (3 Ml) Ud) 3 ml IH [id number] ALEJANDRA Last Admin: 10/08/16 04:40 Dose: Not Given Furosemide (Lasix) 40 mg IVP Q12 ALEJANDRA Last Admin: 10/08/16 02:28 Dose: 40 mg Vancomycin HCl 1.5 gm/ Sodium (Chloride) 500 mls @ 167 mls/hr IVPB ONCE ONE PRN Reason: Protocol Stop: 10/08/16 09:59 Morphine Sulfate (Morphine Front Desk Monitor 1 Mg/Ml) 25 mls @ 2 mls/hr IV PRN PRN; 2 MG/HR PRN Reason: MICA 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 MACHINE FEEDER PER MD ORDER Lorazepam (Ativan) 1 mg IV Q2H PRN PRN Reason: Anxiety Morphine Sulfate (Morphine) 4 mg IVP Q4H PRN PRN Reason: Pain, severe (8-10) Last Admin: 10/08/16 04:37 Dose: 4 mg Ondansetron HCl (Zofran Inj) 4 mg IVP Q4H PRN PRN Reason: Nausea/Vomiting Scopolamine (Transderm-Scop) 1 patch TD Q3D ALEJANDRA - Labs Labs: 10/08/16 04:30 10/08/16 04:30 PT 12.8 Seconds (9.9-11.8) H 09/29/16 23:45 INR 1.19 (0.93-1.08) H 09/29/16 23:45 APTT 27.6 Seconds (23.7-30.8) 09/29/16 23:45 - Constitutional Appears: In Acute Distress - Head Exam Head Exam: NORMAL INSPECTION - Eye Exam Eye Exam: EOMI - ENT Exam ENT Exam: Mucous Membranes Moist - Respiratory Exam Respiratory Exam: Respiratory Distress Additional comments: Tachypnea with audible gurgling - Cardiovascular Exam Cardiovascular Exam: Tachycardia. absent: JVD - GI/Abdominal Exam GI & Abdominal Exam: Soft. absent: Guarding Additional comments: Appropriate postop tenderness. Incision C/D/I with retainer sutures and corazon in place. Colostomy bag in place connected to separate nunez bag with minimal output. R and L ADWOA drains in place. Right ADWOA with minimal serous drainage and Left ADWOA with 75 cc purulent drainage. - Exam Additional comments: Nunez in place with minimal straw colored urine - Extremities Exam Additional comments: LE 1+ edema with mottling up to thighs. Feet cool to touch b/l up to ankles. - Neurological Exam Additional comments: Lethargic - Skin Skin Exam: Mottled (LEs b/l) Assessment and Plan - Assessment and Plan (Free Text) Assessment: 89 y/o F s/p appendectomy POD#14 and Ex-Lap w/ modified Margaret's POD#8 Plan: - Pt family decided on DNR status and requesting palliative care measures only - No surgical intervention indicated at this time Will be d/w Dr. Nestro Levy DO PGY1
--- NOTE | 2016-10-08 08:22 | CP.PCM.PN ---
Subjective - Date & Time of Evaluation Date of Evaluation: 10/08/16 Time of Evaluation: 07:00 - Subjective Subjective: PAF/Sepsis yesterday and transferred to tel. Dr. Rosario's notes noted. I spoke with Dr. Mac this AM. She got IVF, IV dilt and metoprolol and converted to RSR. BP better. Still febrile. No CP or SOB. Confused V/S noted. RSR. 101, 122/65, 18, 89 - 94% PE: Lungs: scattered rhonchi Cor>; S1S2 Abd.: soft Ext.: no edema Neuro.: awahe, confused I/O= 2000/ 600 Labs noted: WBC= 22,600, Cr.= 1.2, K+= 4.6, trops 0.02 and 0.03 BC x2 NG at 5 days CXR noted: new RML infiltrate ECGs 10/07 noted: AF with RVR, STTW changes, PRWP Objective - Vital Signs/Intake and Output Vital Signs (last 24 hours): Temp Pulse Resp BP Pulse Ox 101 F H 105 H 18 122/65 89 L 10/08/16 06:22 10/08/16 06:00 10/08/16 06:00 10/08/16 06:00 10/08/16 06:00 Intake and Output: 10/08/16 10/08/16 06:59 18:59 Intake Total 2000 Output Total 600 Balance 1400 - Medications Medications: Current Medications Acetaminophen (Tylenol 650 Mg Supp) 650 mg RC Q4H PRN PRN Reason: Fever >100.4 F Last Admin: 10/08/16 06:22 Dose: 650 mg Albuterol/Ipratropium (Duoneb 3 Mg/0.5 Mg (3 Ml) Ud) 3 ml IH [id number] PRN PRN Reason: Shortness of Breath Last Admin: 10/08/16 04:13 Dose: 3 ml Albuterol/Ipratropium (Duoneb 3 Mg/0.5 Mg (3 Ml) Ud) 3 ml IH [id number] ALEJANDRA Last Admin: 10/08/16 04:40 Dose: Not Given Furosemide (Lasix) 40 mg IVP Q12 ALEJANDRA Last Admin: 10/08/16 02:28 Dose: 40 mg Vancomycin HCl 1.5 gm/ Sodium (Chloride) 500 mls @ 167 mls/hr IVPB ONCE ONE PRN Reason: Protocol Stop: 10/08/16 09:59 Morphine Sulfate (Morphine Assembler Convertible Top 1 Mg/Ml) 25 mls @ 2 mls/hr IV PRN PRN; 2 MG/HR PRN Reason: 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 PER MD ORDER Lorazepam (Ativan) 1 mg IV Q2H PRN PRN Reason: Anxiety Morphine Sulfate (Morphine) 4 mg IVP Q4H PRN PRN Reason: Pain, severe (8-10) Last Admin: 10/08/16 04:37 Dose: 4 mg Ondansetron HCl (Zofran Inj) 4 mg IVP Q4H PRN PRN Reason: Nausea/Vomiting Scopolamine (Transderm-Scop) 1 patch TD Q3D ALEJANDRA - Labs Labs: 10/08/16 04:30 10/08/16 04:30 PT 12.8 Seconds (9.9-11.8) H 09/29/16 23:45 INR 1.19 (0.93-1.08) H 09/29/16 23:45 APTT 27.6 Seconds (23.7-30.8) 09/29/16 23:45 Assessment and Plan - Assessment and Plan (Free Text) Assessment: Sepsis, s/p surgery for perf sigmoid colon with colovesicular fistula and peritonitis (09/30), s/p acute appendicitis with appendectomy (09/25). RML infiltrate on CXR, R/O pneumonia PAF UTI HBP HLD COPD/Former Smoker Chronic Back Pain Echo: Nl LV, Mild MR, Mild/Mod. TR, Mod/Severe PH Anemia DNR status Plan: As per ID, Surgery, Pulmonary, Uro., Dr. Mac AB IV metoprolol 2.5 Q 8 hrs. Monitor I/O, labs, cultures, tel., etc Will follow.
[2016-10-08 08:24] VITALS: BP 108/71
[2016-10-08] MEDS ORDERED: DiphenhydrAMINE 50 mg/ml Inj IVP STA (08:50)
--- NOTE | 2016-10-08 09:38 | CARD ---
APPROVED REPORT EKG Measurement Heart [id number] ME 170P [id number] <Conclusion> Sinus tachycardia Anterolateral infarct, age undetermined Abnormal ECG
[2016-10-08] MEDS ORDERED: Linezolid 600 mg in D5W 300 ml 600 MG/300 ML BAG IVPB SCH (10:00)
[2016-10-08] MEDS ORDERED: Meropenem 1g/NS 100mL IVPB 1 GM/100 ML PIGGYBACK IVPB SCH (10:00)
--- NOTE | 2016-10-08 10:05 | CP.PCM.CON ---
History of Present Illness - History of Present Illness History of Present Illness: Palliative consult requested by Dr Alexus Mac Reason: Comfort care/hospice discussion 89 year old female who recently admitted for appendicitis s/p appendectomy on . She subsequently developed fecal drainage for ADWOA drain. Further evaluation demonstrated a fistula and he had an exploratory lap.She was found to have a perforated sigmoid colon with colovesicular fistula.She has since developed elevated WBC and BNP, overall condition declining rapidly. PMHx: COPD, A fib, CAD, DJD, vertigo, diverticulosis. Social History: Non smoker, no alcohol or drug use. Live with her family. . Family History: Non contributory Advance Care Planning: The patient does not have an Advanced Directive on file. Family requesting DNR/DNI. Review of Systems: Unable to obtain, patient is altered non verbal Past Patient History - Infectious Disease Hx of Infectious Diseases: None - Tetanus Immunizations Tetanus Immunization: Unknown - Past Social History Smoking Status: Former Smoker - CARDIAC Hx Cardiac Disorders: Yes - PULMONARY Hx Chronic Obstructive Pulmonary Disease (COPD): Yes - NEUROLOGICAL Hx Neurological Disorder: No - HEENT Hx HEENT Problems: Yes - RENAL Hx Chronic Kidney Disease: No - ENDOCRINE/METABOLIC Hx Endocrine Disorders: No - HEMATOLOGICAL/ONCOLOGICAL Hx Blood Disorders: No - INTEGUMENTARY Hx Dermatological Problems: Yes (ROSACEAE) - MUSCULOSKELETAL/RHEUMATOLOGICAL Hx Falls: Yes (12 DAYS AGO,[email or web address]) - GASTROINTESTINAL Hx Gastrointestinal Disorders: Yes (APPENDICITIS WITH OPEN APPENDECTOMY, DIVERTICULITIS,HIATAL HERNIA) - GENITOURINARY/GYNECOLOGICAL Hx Genitourinary Disorders: Yes (UTI) Hx Reproductive Disorders: No - PSYCHIATRIC Hx Depression: No Hx Emotional Abuse: No Hx Physical Abuse: No Hx Substance Use: No - SURGICAL HISTORY Hx Appendectomy: Yes - ANESTHESIA Hx Anesthesia: Yes Hx Anesthesia Reactions: No Hx Malignant Hyperthermia: No Meds Allergies/Adverse Reactions: Allergies Allergy/AdvReac Type Severity Reaction Status Date / Time pineapple Allergy ANAPHYLAXIS Verified 09/27/16 21:27 - Medications Medications: Current Medications Acetaminophen (Tylenol 650 Mg Supp) 650 mg RC Q4H PRN PRN Reason: Fever >100.4 F Last Admin: 10/08/16 08:41 Dose: 650 mg Albuterol/Ipratropium (Duoneb 3 Mg/0.5 Mg (3 Ml) Ud) 3 ml IH [id number] PRN PRN Reason: Shortness of Breath Last Admin: 10/08/16 04:13 Dose: 3 ml Albuterol/Ipratropium (Duoneb 3 Mg/0.5 Mg (3 Ml) Ud) 3 ml IH [id number] ALEJANDRA Last Admin: 10/08/16 08:02 Dose: Not Given Furosemide (Lasix) 40 mg IVP Q12 ALEJANDRA Last Admin: 10/08/16 02:28 Dose: 40 mg Morphine Sulfate (Morphine Soil Fertility Extension Specialist 1 Mg/Ml) 25 mls @ 2 mls/hr IV PRN PRN; 2 MG/HR PRN Reason: AIRLINE HOSTESS PER MD ORDER Lorazepam (Ativan) 1 mg IV Q2H PRN PRN Reason: Anxiety Metoprolol Tartrate (Lopressor) 2.5 mg IV Q8H ALEJANDRA Morphine Sulfate (Morphine) 4 mg IVP Q4H PRN PRN Reason: Pain, severe (8-10) Last Admin: 10/08/16 08:20 Dose: 4 mg Scopolamine (Transderm-Scop) 1 patch TD Q3D [facility] Last Admin: 10/08/16 08:19 Dose: 1 patch Physical Exam - Constitutional Appears: Chronically Ill - Head Exam Head Exam: NORMAL INSPECTION - Eye Exam Eye Exam: Normal appearance, PERRL - ENT Exam ENT Exam: Mucous Membranes Moist - Neck Exam Neck exam: Positive for: Normal Inspection - Respiratory Exam Respiratory Exam: Decreased Breath Sounds, Rhonchi Additional comments: irregular, tachypniec - Cardiovascular Exam Cardiovascular Exam: Tachycardia, Irregular Rhythm, +S1, +S2 - GI/Abdominal Exam GI & Abdominal Exam: Diminished Bowel Sounds, Soft - Extremities Exam Additional comments: lower extremities mottled - Skin Skin Exam: Diaphoretic, Dry, Warm Results - Vital Signs Recent Vital Signs: Last Vital Signs Temp 101 F H 10/08/16 06:22 Pulse 105 H 10/08/16 06:00 Resp 18 10/08/16 06:00 BP 108/71 10/08/16 08:19 Pulse Ox 89 L 10/08/16 06:00 - Labs Result Diagrams: 10/08/16 04:30 10/08/16 04:30 Labs: Laboratory Results - last 24 hr 10/07/16 10/07/16 10/07/16 12:50 13:20 13:20 WBC RBC Hgb Hct MCV MCH MCHC RDW Plt Count MPV Gran % Lymph % (Auto) [place] % (Auto) Eos % (Auto) Baso % (Auto) Gran # Lymph # Good[place] # Eos # Baso # Neutrophils % (Manual) Band Neutrophils % Lymphocytes % (Manual) Monocytes % (Manual) Platelet Evaluation D-Dimer, Quantitative pCO2 47 H pO2 62.0 L HCO3 32.7 H ABG pH 7.45 ABG Total CO2 34.1 H ABG O2 Saturation 94.8 L ABG Base Excess 7.5 H ABG Potassium 3.7 VBG pH VBG pCO2 VBG HCO3 VBG Total CO2 VBG O2 Sat (Calc) VBG Base Excess VBG Potassium Sodium 145.0 Chloride 107.0 Glucose 166 H Lactate 2.2 H FiO2 36.0 Potassium Carbon Dioxide Anion Gap BUN Creatinine Est GFR ( Amer) Est GFR (Non-Af Amer) Random Glucose Calcium Magnesium 1.7 Total Bilirubin AST ALT Alkaline Phosphatase Lactate Dehydrogenase 639 Total Creatine Kinase 182 Troponin I < 0.01 D NT-Pro-B Natriuret Pep 1830 H Total Protein Albumin Globulin Albumin/Globulin Ratio Arterial Blood Potassium 3.7 Venous Blood Potassium Urine Color Urine Appearance Urine pH Ur Specific [place] Urine Protein Urine Glucose (UA) Urine Ketones Urine Blood Urine Nitrate Urine Bilirubin Urine Urobilinogen Ur Leukocyte Esterase Urine RBC Urine WBC Urine Bacteria Hyaline Casts 10/07/16 10/07/16 10/07/16 14:35 16:45 19:15 WBC 19.2 H D RBC 4.38 Hgb 13.3 D Hct 40.8 MCV 93.2 MCH 30.4 MCHC 32.6 RDW 14.7 H Plt Count 409 MPV 10.3 Gran % Lcac Operator Lymph % (Auto) Lcac Operator Good[place] % (Auto) Lcac Operator Eos % (Auto) Lcac Operator Baso % (Auto) Lcac Operator Gran # Lcac Operator Lymph # Lcac Operator Gooding # Lcac Operator Eos # Lcac Operator Baso # Lcac Operator Neutrophils % (Manual) 80 H Band Neutrophils % 12 H* Lymphocytes % (Manual) 6 L Monocytes % (Manual) 2 Platelet Evaluation Normal D-Dimer, Quantitative pCO2 48 H pO2 73.0 L 182 H HCO3 33.4 H ABG pH 7.45 ABG Total CO2 34.9 H ABG O2 Saturation 97.5 ABG Base Excess 8.1 H ABG Potassium 4.0 VBG pH 7.47 H VBG pCO2 49.0 VBG HCO3 35.7 H VBG Total CO2 37.2 H VBG O2 Sat (Calc) 99.6 H VBG Base Excess 10.4 H VBG Potassium 4.5 Sodium 142.0 142.0 Chloride 107.0 105.0 Glucose 107 H 118 H Lactate 2.3 H 2.8 H FiO2 36.0 21.0 Potassium Carbon Dioxide Anion Gap BUN Creatinine Est GFR ( Amer) Est GFR (Non-Af Amer) Random Glucose Calcium Magnesium Total Bilirubin AST ALT Alkaline Phosphatase Lactate Dehydrogenase Total Creatine Kinase Troponin I NT-Pro-B Natriuret Pep Total Protein Albumin Globulin Albumin/Globulin Ratio Arterial Blood Potassium 4.0 Venous Blood Potassium 4.5 Urine Color Urine Appearance Urine pH Ur Specific [place] Urine Protein Urine Glucose (UA) Urine Ketones Urine Blood Urine Nitrate Urine Bilirubin Urine Urobilinogen Ur Leukocyte Esterase Urine RBC Urine WBC Urine Bacteria Hyaline Casts 10/07/16 10/07/16 10/07/16 19:15 20:30 20:30 WBC RBC Hgb Hct MCV MCH MCHC RDW Plt Count MPV Gran % Lymph % (Auto) [place] % (Auto) Eos % (Auto) Baso % (Auto) Gran # Lymph # [place] # Eos # Baso # Neutrophils % (Manual) Band Neutrophils % Lymphocytes % (Manual) Monocytes % (Manual) Platelet Evaluation D-Dimer, Quantitative 4.35 H pCO2 pO2 HCO3 ABG pH ABG Total CO2 ABG O2 Saturation ABG Base Excess ABG Potassium VBG pH VBG pCO2 VBG HCO3 VBG Total CO2 VBG O2 Sat (Calc) VBG Base Excess VBG Potassium Sodium 143 Chloride 101 Glucose Lactate FiO2 Potassium 4.5 Carbon Dioxide 32 Anion Gap 15 BUN 22 H Creatinine 1.1 Est GFR ( Amer) 57 Est GFR (Non-Af Amer) 47 Random Glucose 128 H Calcium 8.2 L Magnesium Total Bilirubin 0.4 AST 29 ALT 30 Alkaline Phosphatase 43 Lactate Dehydrogenase Total Creatine Kinase Troponin I 0.02 D NT-Pro-B Natriuret Pep Total Protein 5.7 L Albumin 2.6 L Globulin 3.1 Albumin/Globulin Ratio 0.8 L Arterial Blood Potassium Venous Blood Potassium Urine Color Urine Appearance Urine pH Ur Specific [place] Urine Protein Urine Glucose (UA) Urine Ketones Urine Blood Urine Nitrate Urine Bilirubin Urine Urobilinogen Ur Leukocyte Esterase Urine RBC Urine WBC Urine Bacteria Hyaline Casts 10/08/16 10/08/1610/08/17 04:30 04:30 07:30 WBC 22.6 H RBC 4.08 Hgb 12.3 Hct 38.1 MCV 93.4 MCH 30.1 MCHC 32.3 RDW 15.0 H Plt Count 373 MPV 10.3 Gran % Lymph % (Auto) Good[place] % (Auto) Eos % (Auto) Baso % (Auto) Gran # Lymph # Good[place] # Eos # Baso # Neutrophils % (Manual) 80 H Band Neutrophils % 11 H* Lymphocytes % (Manual) 6 L Monocytes % (Manual) 3 Platelet Evaluation Normal D-Dimer, Quantitative pCO2 pO2 HCO3 ABG pH ABG Total CO2 ABG O2 Saturation ABG Base Excess ABG Potassium VBG pH VBG pCO2 VBG HCO3 VBG Total CO2 VBG O2 Sat (Calc) VBG Base Excess VBG Potassium Sodium 145 Chloride 106 Glucose Lactate FiO2 Potassium 4.6 Carbon Dioxide 30 Anion Gap 14 BUN 26 H Creatinine 1.2 Est GFR ( Amer) 51 Est GFR (Non-Af Amer) 42 Random Glucose 135 H Calcium 7.8 L Magnesium Total Bilirubin 0.3 AST 27 ALT 27 Alkaline Phosphatase 38 Lactate Dehydrogenase 577 Total Creatine Kinase 112 Troponin I 0.03 D NT-Pro-B Natriuret Pep Total Protein 5.1 L Albumin 2.4 L Globulin 2.8 Albumin/Globulin Ratio 0.9 L Arterial Blood Potassium Venous Blood Potassium Urine Color Yellow Urine Appearance Sl cloudy Urine pH 5.5 Ur Specific [place] 1.015 Urine Protein Trace H Urine Glucose (UA) Negative Urine Ketones Negative Urine Blood Moderate H Urine Nitrate Negative Urine Bilirubin Negative Urine Urobilinogen 0.2 Ur Leukocyte Esterase Moderate H Urine RBC 0 - 2 Urine WBC Tntc Urine Bacteria Few Hyaline Casts 0 - 2 Assessment & Plan - Assessment and Plan (Free Text) Assessment: 89 sachin old female who was admitted with appendicitis, s/p appendectomy, colovesicular fistula, sepsis. Patient is lethargic, tachypneic, tachycardic . Upper airway congestion. Dr Alexus Mac had an extensive discussion with patient's family this morning. Family requested that patient be made comfort care only. I met with patient's son and daughter who affirmed desire for comfort measures only. I offered [facility] hospice service's, family refusing at this time. Process for comfort measures explained. Signs of impending discussed. Spiritual support offered. Psychosocial support given. Plan: Dr Calixto note/ordered reviewed. I am in agreement. I will monitor for symptoms of increased discomfort and adjust medications accordingly
[2016-10-08] MEDS: Metoprolol 1 mg/ml Inj IV SCH ×2 (11:19→19:17)
[2016-10-08 11:21] VITALS: PULSE 60
--- NOTE | 2016-10-08 13:45 | PN ---
DATE: 10/08/2016 SUBJECTIVE: The patient has agonal breathing. PHYSICAL EXAMINATION: VITAL SIGNS: T-max is 101, pulse of 105, blood pressure 122/65, respirations 18, and O2 saturation 89%. GENERAL: The patient is lying in bed, flat, comfortable. HEENT: No oral lesion. Anicteric sclerae. Moist mucosa. NECK: No JVD, adenopathy, or thyromegaly. CARDIOVASCULAR: S1 and S2, regular. No murmurs, rubs, or gallops. LUNGS: Bilateral poor air entry. Bilateral rhonchi. No rales. No wheezing. ABDOMEN: Bowel sounds are positive, soft, nontender and nondistended. EXTREMITIES: no cyanosis, clubbing or edema. LABORATORY DATA: Labs have been reviewed. White count of 22.6, creatinine is 1.2. CT of the abdomen and pelvis shows partial proximal small bowel obstruction. ASSESSMENT: 1. Partial small-bowel obstruction. 2. Sepsis. 3. Perforated sigmoid colon diverticulitis with colovesical fistula, status post modified Margaret. 4. Appendicitis, status post appendectomy. 5. Acute kidney injury, resolved. 6. Paroxysmal atrial fibrillation. 7. Coronary artery disease. 8. Chronic obstructive pulmonary disease. 9. Chronic back pain. 10. Hypokalemia. 11. Hypophosphatemia. 12. Tricuspid regurgitation. 13. Pulmonary hypertension. 14. Anemia. 15. Delirium. 16. Do not resuscitate. PLAN: The patient is currently critically ill. She is septic. She has declined significantly. I had a long discussion with the patient's family at the bedside. She is going to be in comfort care. I spoke with Hesham and the patient's daughter. She is going to have her telemetry monitoring discontinued. She is going to be transferred to the medical floor. The patient is going to have comfort measures. I will put her on a morphine drip, stop her antibiotics. She will continue with Lasix to help with secretions. She is going to be on significant amount of fluid overnight. I will continue with Lasix. The patient is on Ativan as well. The patient's IV fluids are on hold. She is going to be placed on scopolamine patch. I will continue with Tylenol as needed. She is going to be NPO. The patient's family understand that her prognosis is poor and she is actively dying. She is DNR. We will get palliative care consultation. Abhishek Mac MD
--- NOTE | 2016-10-08 18:58 | CP.PCM.PN ---
Subjective - Date & Time of Evaluation Date of Evaluation: 10/08/16 Time of Evaluation: 12:00 - Subjective Subjective: Patient is lethargic, febrile. Objective - Vital Signs/Intake and Output Vital Signs (last 24 hours): Temp Pulse Resp BP Pulse Ox 101 F H 105 H 18 122/65 89 L 10/08/16 06:22 10/08/16 06:00 10/08/16 06:00 10/08/16 06:00 10/08/16 06:00 Intake and Output: 10/07/16 10/08/16 18:59 06:59 Intake Total 2000 Output Total 600 Balance 1400 - Medications Medications: Current Medications Acetaminophen (Tylenol 325mg Tab) 650 mg PO Q4 PRN PRN Reason: Fever >100.4 F Acetaminophen (Tylenol 650 Mg Supp) 650 mg RC Q4H PRN PRN Reason: Fever >100.4 F Last Admin: 10/08/16 06:22 Dose: 650 mg Albuterol/Ipratropium (Duoneb 3 Mg/0.5 Mg (3 Ml) Ud) 3 ml IH [id number] PRN PRN Reason: Shortness of Breath Last Admin: 10/08/16 04:13 Dose: 3 ml Albuterol/Ipratropium (Duoneb 3 Mg/0.5 Mg (3 Ml) Ud) 3 ml IH [id number] ALEJANDRA Last Admin: 10/08/16 04:40 Dose: Not Given Budesonide (Pulmicort Respules) 0.5 mg IH BIDRESP ALEJANDRA Last Admin: 10/07/16 19:55 Dose: 0.5 mg Enoxaparin Sodium (Lovenox) 40 mg SC DAILY ALEJANDRA PRN Reason: Protocol Last Admin: 10/07/16 10:41 Dose: 40 mg Furosemide (Lasix) 40 mg IVP Q12 ALEJANDRA Last Admin: 10/08/16 02:28 Dose: 40 mg Guaifenesin (Robitussin) 100 mg PO Q4H PRN PRN Reason: Cough and congestion Fluconazole (Diflucan Iv 400mg/200ml Ns) 200 mls @ 100 mls/hr IVPB DAILY ALEJANDRA PRN Reason: Protocol Last Admin: 10/07/16 10:42 Dose: 100 mls/hr Sodium Chloride (Sodium Chloride 0.9%) 1,000 mls @ 125 mls/hr IV .Q8H [facility] Last Admin: 10/08/16 04:44 Dose: Not Given Meropenem 1g/NS 100mL IVPB (Meropenem 1g/Ns 100ml Ivpb) 1 gm in 100 mls @ 100 mls/hr IVPB Q12 ALEJANDRA PRN Reason: Protocol Stop: 10/15/16 10:01 Vancomycin HCl 1.5 gm/ Sodium (Chloride) 250 mls @ 167 mls/hr IVPB ONCE ONE PRN Reason: Protocol Stop: 10/08/16 08:04 Morphine Sulfate (Morphine) 4 mg IVP Q4H PRN PRN Reason: Pain, severe (8-10) Last Admin: 10/08/16 04:37 Dose: 4 mg Ondansetron HCl (Zofran Inj) 4 mg IVP Q4H PRN PRN Reason: Nausea/Vomiting Oxycodone/Acetaminophen (Percocet 5/325 Mg Tab) 1 tab PO Q4H PRN PRN Reason: Pain, moderate (4-7) Stop: 10/10/16 11:36 Pantoprazole Sodium (Protonix Inj) 40 mg IVP DAILY [facility] Last Admin: 10/07/16 10:39 Dose: 40 mg Potassium Chloride (K-Dur 20 Meq Er Tab) 40 meq PO TID ALEJANDRA Stop: 10/08/16 10:01 Last Admin: 10/07/16 20:18 Dose: Not Given Potassium Phos/Sodium Phos (Neutra-Phos) 1 pkt PO BID [facility] Stop: 10/10/16 10:01 Last Admin: 10/07/16 20:18 Dose: Not Given - Labs Labs: 10/08/16 04:30 10/08/16 04:30 PT 12.8 Seconds (9.9-11.8) H 09/29/16 23:45 INR 1.19 (0.93-1.08) H 09/29/16 23:45 APTT 27.6 Seconds (23.7-30.8) 09/29/16 23:45 - Constitutional Appears: Chronically Ill - Neck Exam Neck Exam: absent: Meningismus - Respiratory Exam Respiratory Exam: Decreased Breath Sounds - Cardiovascular Exam Cardiovascular Exam: +S1, +S2 - GI/Abdominal Exam GI & Abdominal Exam: Soft. absent: Tenderness Additional comments: abdominal drains in place Assessment and Plan - Assessment and Plan (Free Text) Plan: Assessment Sepsis due to intra-abdominal infection with bowel perforation and colovesical fistula S/P exploratory laparotomy, with lysis of adhesions, modified Margaret' s resection, and abdominal washout (09/30/16, POD #8) - growing C. albicans and Pseudomonas S/P appendectomy for gangrenous appendicitis COPD Atrial fibrillation not on anticoagulation CAD degenerative joint disease vertigo history of diverticulitis Plan was on Merrem and diflucan (day 9) but the patient has been placed on comfort measures only - discussed with Dr. Sandoval patient is DNR/DNI and overall prognosis is poor
[2016-10-08 19:16] VITALS: TEMP 100.8
--- NOTE | 2016-10-08 19:37 | CP.PCM.PN ---
Subjective - Date & Time of Evaluation Date of Evaluation: 10/08/16 Time of Evaluation: 19:35 - Subjective Subjective: called by nurse to see pt. pt with no pulse no Bp , not breathing ,not responding pt was DNR at 7: 30:pm. Objective - Vital Signs/Intake and Output Vital Signs (last 24 hours): Temp Pulse Resp BP Pulse Ox 100.8 F H 60 18 108/71 89 L 10/08/16 18:58 10/08/16 11:19 10/08/16 06:00 10/08/16 08:19 10/08/16 06:00 Intake and Output: 10/08/16 10/09/16 18:59 06:59 Intake Total 0 Output Total 100 Balance -100 - Medications Medications: Current Medications Acetaminophen (Tylenol 650 Mg Supp) 650 mg RC Q4H PRN PRN Reason: Fever >100.4 F Last Admin: 10/08/16 18:58 Dose: 650 mg Albuterol/Ipratropium (Duoneb 3 Mg/0.5 Mg (3 Ml) Ud) 3 ml IH [id number] PRN PRN Reason: Shortness of Breath Last Admin: 10/08/16 04:13 Dose: 3 ml Albuterol/Ipratropium (Duoneb 3 Mg/0.5 Mg (3 Ml) Ud) 3 ml IH [id number] ALEJANDRA Last Admin: 10/08/16 13:32 Dose: Not Given Furosemide (Lasix) 40 mg IVP Q12 ALEJANDRA Last Admin: 10/08/16 11:21 Dose: Not Given Morphine Sulfate (Morphine Commercial Artist 1 Mg/Ml) 25 mls @ 2 mls/hr IV PRN PRN; 2 MG/HR PRN 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 Last Admin: 10/08/16 09:49 Dose: 2 mls/hr Lorazepam (Ativan) 1 mg IV Q2H PRN PRN Reason: Anxiety Last Admin: 10/08/16 18:48 Dose: 1 mg Metoprolol Tartrate (Lopressor) 2.5 mg IV Q8H ALEJANDRA Last Admin: 10/08/16 19:17 Dose: Not Given Morphine Sulfate (Morphine) 4 mg IVP Q4H PRN PRN Reason: Pain, severe (8-10) Last Admin: 10/08/16 08:20 Dose: 4 mg Scopolamine (Transderm-Scop) 1 patch TD Q3D ALEJANDRA Last Admin: 10/08/16 08:19 Dose: 1 patch - Labs Labs: 10/08/16 04:30 10/08/16 04:30 PT 12.8 Seconds (9.9-11.8) H 09/29/16 23:45 INR 1.19 (0.93-1.08) H 09/29/16 23:45 APTT 27.6 Seconds (23.7-30.8) 09/29/16 23:45 Assessment and Plan - Assessment and Plan (Free Text) Assessment: at 7:30 pm. DNR.
--- NOTE | 2016-10-08 21:05 | PN ---
DATE: 10/08/2016 SUBJECTIVE: The patient is seen in her room. She is sleeping and somewhat tachypneic. There is family present. PHYSICAL EXAMINATION: GENERAL: Her Thomas catheter is in place, it is now draining clear-colored urine with no further feculent drainage. There are drains in place, which are still draining murky-appearing fluid. VITAL SIGNS: Temperature of 101 early this morning, pulse 105, BP 108/71, respirations 30. IMPRESSION AND PLAN: An 89-year-old female with peritonitis and gross fecal soilage from perforated diverticulitis with a colovesical fistula. Urologically, the urine has improved with the diverting colostomy. In speaking with the patient's family, it appears that the patient is now do not resuscitate/do not intubate status. She is being treated with supportive measures, IV fluids and IV antibiotics. If the patient's condition does markedly improve and the plan down the road is to close her colostomy, then we would be available to repair the bladder; however, at this point, the patient's condition appears guarded and it is not appear likely that she is going to have any further surgery. We would continue supportive care. I will sign off for now. Please re-consult if any acute urologic issues which need to be addressed. Capo Pettit MD
== END 2016-10-08 19:30 | DRG 853 ==
LOC: ED 19:32 → ERH 22:31 → 2RSO 09-30 01:51 → OBSVTOIN 09-30 09:46 → CCU 09-30 15:05 → 5RNO 10-03 15:41 → 2RSO 10-07 14:15 → 3RNO 10-08 09:28
PROVIDERS: ADMIT Internal Medicine Nephrology; ATTEND Internal Medicine Nephrology
PROC: 0D9 Gastrointestinal System, Drainage (ICD-10-PCS; 2016-09-30)
PROC: 0DNF0ZZ Release Right Large Intestine, Open Approach (ICD-10-PCS; 2016-09-30)
PROC: 3E1M38Z Irrigation of Peritoneal Cavity using Irrigating Substance, Percutaneous Approach (ICD-10-PCS; 2016-09-30)
PROC: 0DBM0ZZ Excision of Descending Colon, Open Approach (ICD-10-PCS; principal; 2016-09-30 11:00)
PROC: 0D1L0Z4 Bypass Transverse Colon to Cutaneous, Open Approach (ICD-10-PCS; 2016-09-30 11:00)
DX: A41.9 Sepsis, unspecified organism (principal); K35.3 Acute appendicitis with localized peritonitis; R65.21 Severe sepsis with septic shock; N17.9 Acute kidney failure, unspecified; K56.60 Unspecified intestinal obstruction; I27.2 Other secondary pulmonary hypertension; I11.0 Hypertensive heart disease with heart failure; I50.9 Heart failure, unspecified; K57.20 Diverticulitis of large intestine with perforation and abscess without bleeding; K63.2 Fistula of intestine; I48.92 Unspecified atrial flutter; N32.1 Vesicointestinal fistula; N39.0 Urinary tract infection, site not specified; T81.83XA Persistent postprocedural fistula, initial encounter; D64.9 Anemia, unspecified; E83.39 Other disorders of phosphorus metabolism; E87.6 Hypokalemia; E66.9 Obesity, unspecified; E78.5 Hyperlipidemia, unspecified; G47.00 Insomnia, unspecified; G89.29 Other chronic pain; M54.9 Dorsalgia, unspecified; K44.9 Diaphragmatic hernia without obstruction or gangrene; I07.1 Rheumatic tricuspid insufficiency; I25.10 Atherosclerotic heart disease of native coronary artery without angina pectoris; I48.0 Paroxysmal atrial fibrillation; J44.9 Chronic obstructive pulmonary disease, unspecified; K21.9 Gastro-esophageal reflux disease without esophagitis; K66.0 Peritoneal adhesions (postprocedural) (postinfection); M19.90 Unspecified osteoarthritis, unspecified site; Z90.49 Acquired absence of other specified parts of digestive tract; Z87.440 Personal history of urinary (tract) infections; Z87.01 Personal history of pneumonia (recurrent); Z66 Do not resuscitate; Z87.891 Personal history of nicotine dependence; R42 Dizziness and giddiness; Z98.42 Cataract extraction status, left eye; Z98.41 Cataract extraction status, right eye; R26.81 Unsteadiness on feet; Z91.018 Allergy to other foods; Z87.892 Personal history of anaphylaxis; Z87.81 Personal history of (healed) traumatic fracture; R40.2412 Glasgow coma scale score 13-15, at arrival to emergency department; L71.9 Rosacea, unspecified; R00.0 Tachycardia, unspecified; B96.5 Pseudomonas (aeruginosa) (mallei) (pseudomallei) as the cause of diseases classified elsewhere; R41.0 Disorientation, unspecified